=== PATIENT | female | born 1995 | race Hispanic/Latino ===

== ENCOUNTER 2019-10-06 18:04 | Emergency (ER) | payer BC, OTHER ==
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
[2019-10-06] MEDS ORDERED: CYCLOBENZAPRINE 10 MG TAB ONE (18:32)
[2019-10-06] MEDS ORDERED: KETOROLAC 30 MG/ML INJ ONE (18:32)
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
--- NOTE | 2019-10-06 18:57 | RAD REPORT ---
EXAM DESCRIPTION: RAD - Shoulder Left 2 View - 10/06/2019 6:42 pm CLINICAL HISTORY: Left shoulder pain FINDINGS: No fracture or dislocation is seen.
--- NOTE | 2019-10-06 18:58 | RAD REPORT ---
EXAM DESCRIPTION: Anil Single View10/06/2019 6:42 pm CLINICAL HISTORY: Chest pain COMPARISON: 2015 FINDINGS: The lungs appear clear of acute infiltrate. The heart is normal size IMPRESSION: No acute abnormalities displayed
[2019-10-06 20:35] LABS: Urine Blood NEGATIVE (NEG); Urine Glucose NEGATIVE (NEG); Urine Protein NEGATIVE (NEG)
[2019-10-06 21:42] VITALS: BP 123/90; O2SAT 99
== END 2019-10-06 19:36 | disposition home or self-care (01) ==
LOC: ER 18:04
DX: S13.4XXA Sprain of ligaments of cervical spine, initial encounter (principal); S20.219A Contusion of unspecified front wall of thorax, initial encounter; V49.40XA Driver injured in collision with unspecified motor vehicles in traffic accident, initial encounter; F41.9 Anxiety disorder, unspecified
CPT/HCPCS: 71045; 72125; 81003; 81025; 96372; 99284

== ENCOUNTER 2019-12-19 18:22 | Emergency (ER) | payer BC ==
[2019-12-19 19:08] LABS: Absolute Lymphocytes (CBC) 1.2 K/uL (0.7-4.9); Basophils % 0.6 % (0-1.3); Hematocrit 39.8 % (36.0-45.0); Lymphocytes % 14.7 % (15.3-44.8); MPV 10.3 fL (7.6-11.3); RBC Red Blood Cell Count 4.37 M/uL (3.86-4.86)
[2019-12-19 19:11] LABS: Protime INR 1.13
[2019-12-19 19:23] LABS: ALT/SGPT 20 U/L (12-78); AST/SGOT 11 U/L (15-37); Albumin 3.7 g/dL (3.4-5.0); Alkaline Phosphatase 65 U/L (45-117); BUN Blood Urea Nitrogen 7 mg/dL (7-18); Bicarbonate 23 mmol/L (21-32); Bilirubin Direct 0.1 mg/dL (0-0.2); Bilirubin Total 0.6 mg/dL (0.2-1.0); Glucose Level 123 mg/dL (74-106); Potassium 3.2 mmol/L (3.5-5.1); Protein, Total 7.8 g/dL (6.4-8.2); Sodium Level 140 mmol/L (136-145)
[2019-12-19] MEDS ORDERED: POTASSIUM CL SA 10 MEQ TAB PO ONE (19:51)
[2019-12-19 21:01] LABS: Barbiturates NEGATIVE (NEGATIVE); Benzodiazepines NEGATIVE (NEGATIVE); Cocaine NEGATIVE (NEGATIVE); METHAMPHETAM NEGATIVE (NEGATIVE); Methadone NEGATIVE (NEGATIVE); Opiates NEGATIVE (NEGATIVE); Phencyclidine NEGATIVE (NEGATIVE); THC Cannibis NEGATIVE (NEGATIVE)
[2019-12-19] MEDS ORDERED: NA CHLORIDE 0.9% 1,000 ML ONE (21:02)
[2019-12-19] MEDS ORDERED: ONDANSETRON 4 MG/2 ML VIAL ONE (21:02)
[2019-12-19 21:12] LABS: Urine Blood TRACE (NEG); Urine Glucose NEGATIVE (NEG); Urine Protein NEGATIVE (NEG)
--- NOTE | 2019-12-19 23:37 | EDPHYS ---
Physician Documentation [facility] Name: Ester Bonilla Age: 24 yrs Sex: Female : 1995 Arrival Date: 12/19/2019 Time: 18:28 Bed 13 Private MD: ED Physician Sandeep Lara HPI: 12/18 22:21 This 24 yrs old Female presents to ER via EMS with complaints of Overdose, kb Suicidal Ideation. 22:21 The patient presents to the emergency department after a known overdose, that was kb intentional. Context: Method: the patient has a confirmed or suspected ingestion, Time: at 17:00, Extent: approx 10 500mg robaxin, the OD/poisoning occurred at at home, Psychiatric history: the patient has a known psychiatric disorder, depression, Previous OD/poisoning history: yes. Associated signs and symptoms: Pertinent positives: depression, Pertinent negatives: anxiety, apnea, auditory hallucinations, burning of skin, decreased level of consciousness, diaphoresis, diarrhea, dizziness, incontinence, loss of consciousness, nausea, palpitations, shortness of breath, tearfulness, visual hallucinations, vomiting. Severity of symptoms: At their worst the symptoms were moderate in the emergency department the symptoms are unchanged. The patient has not experienced similar symptoms in the past. The patient has not recently seen a physician. Pt states she overdosed to kill herself. States sometimes she gets really depressed and tries to hurt herself. States she is still suicidal now. States "I don't know why they made me come here, I feel fine." Denies homicidal ideations. 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 - Social history:: Smoking status: Reported history of juuling and/or vaping. ROS: 22:19 Constitutional: Negative for fever, chills, and weight loss, Neck: Negative for injury, kb pain, and swelling, Cardiovascular: Negative for chest pain, palpitations, and edema, Respiratory: Negative for shortness of breath, cough, wheezing, and pleuritic chest pain, Abdomen/GI: Negative for abdominal pain, nausea, vomiting, diarrhea, and constipation, Back: Negative for injury and pain, : Negative for injury, bleeding, discharge, and swelling, MS/Extremity: Negative for injury and deformity, Skin: Negative for injury, rash, and discoloration, Neuro: Negative for headache, weakness, numbness, tingling, and seizure. 22:19 Psych: Positive for depression, suicide gesture, suicidal ideation, Negative for homicidal ideation. Exam: 22:19 Constitutional: This is a well developed, well nourished patient who is awake, alert, kb and in no acute distress. Head/Face: Normocephalic, atraumatic. Neck: Trachea midline, no thyromegaly or masses palpated, and no cervical lymphadenopathy. Supple, full range of motion without nuchal rigidity, or vertebral point tenderness. No Meningismus. Chest/axilla: Normal chest wall appearance and motion. Nontender with no deformity. No lesions are appreciated. Cardiovascular: Regular rate and rhythm with a normal S1 and S2. No gallops, murmurs, or rubs. Normal PMI, no JVD. No pulse deficits. Respiratory: Lungs have equal breath sounds bilaterally, clear to auscultation and percussion. No rales, rhonchi or wheezes noted. No increased work of breathing, no retractions or nasal flaring. Abdomen/GI: Soft, non-tender, with normal bowel sounds. No distension or tympany. No guarding or rebound. No evidence of tenderness throughout. Skin: Warm, dry with normal turgor. Normal color with no rashes, no lesions, and no evidence of cellulitis. MS/ Extremity: Pulses equal, no cyanosis. Neurovascular intact. Full, normal range of motion. Neuro: Awake and alert, GCS 15, oriented to person, place, time, and situation. Cranial nerves II-XII grossly intact. Motor strength 5/5 in all extremities. Sensory grossly intact. Cerebellar exam normal. Normal gait. 22:19 Psych: Behavior/mood is cooperative, suicidal, Affect is flat, Oriented to person, place, time, Patient having thoughts of suicide. Plan for suicide is overdose Judgement / Insight is normal. Memory is normal. 22:24 ECG was reviewed by the Attending Physician. kb Vital Signs: 18:28 BP 120 / 96; Pulse 98; Resp 16; Pulse Ox 99% on R/A; Weight 61.23 kg (R); Height 5 ft. rb1 5 in. (165.10 cm) (R); Pain 0/10; 19:01 Temp 99.3(TE); mg2 18:28 Body Mass Index 22.46 (61.23 kg, 165.10 cm) rb1 MDM: 18:33 Patient medically screened. kb 22:19 Data reviewed: vital signs, nurses notes. Data interpreted: Pulse oximetry: on room air kb is 99 %. Interpretation: normal. 22:46 ED course: [facility] Screener recommends inpatient treatment . kb 22:48 ED course: Pt will voluntarily be transferred for inpatient treatment. kb 23:35 Counseling: I had a detailed discussion with the patient and/or guardian regarding: the kb historical points, exam findings, and any diagnostic results supporting the discharge/admit diagnosis, lab results, the need to transfer to another facility, for higher level of care, [facility] does not immediately have the required specialist. ED course: Pt accepted to [facility] by Dr Fleming. 12/18 18:37 Order name: Acetaminophen; Complete Time: 19:25 kb 12/18 18:37 Order name: Basic Metabolic Panel; Complete Time: 19:25 kb 12/18 18:37 Order name: CBC with Diff; Complete Time: 19:10 kb 12/18 18:37 Order name: ETOH Level; Complete Time: 19:24 kb 12/18 18:37 Order name: Hepatic Function; Complete Time: 19:25 kb 12/18 18:37 Order name: PT-INR; Complete Time: 19:16 kb 12/18 18:37 Order name: Ptt, Activated; Complete Time: 19:16 kb 12/18 18:37 Order name: Salicylate; Complete Time: 19:25 kb 12/18 18:37 Order name: Urine Drug Screen; Complete Time: 21:06 kb 12/18 20:48 Order name: Urine Dipstick--Ancillary (enter results); Complete Time: 21:12 ar5 12/18 20:49 Order name: Urine --Ancillary (enter results); Complete Time: 21:13 ar5 12/18 18:37 Order name: Urine Test (obtain specimen); Complete Time: 20:38 kb 12/18 18:37 Order name: EKG; Complete Time: 18:38 kb 12/18 18:37 Order name: EKG - Nurse/Tech; Complete Time: 20:03 kb 12/18 18:37 Order name: IV Saline Lock; Complete Time: 19:26 kb 12/18 18:37 Order name: Labs collected and sent; Complete Time: 19:26 kb 12/18 18:37 Order name: Urine Dipstick-Ancillary (obtain specimen); Complete Time: 20:38 kb 12/18 18:39 Order name: Misc. Order: Call Poison Control for their recommendation; Complete Time: kb 19:26 EC:24 Rate is 97 beats/min. Rhythm is regular. QRS [place] is Normal. NE interval is normal at kb 140 msec. QRS interval is normal at 92 msec. QT interval is normal at 352 msec. Administered Medications: 21:15 Drug: Zofran (Ondansetron) 4 mg Route: IVP; Site: right antecubital; mg2 21:16 Drug: NS 0.9% 1000 ml Route: IV; Rate: 1000 ml; Site: right antecubital; mg2 21:51 Not Given (Patient Refused): Potassium Chloride 40 mEq PO once mg2 Disposition: 12/19 07:11 Co-signature as Attending Physician, Sandeep Lara MD. rn Disposition: 12/19/19 23:36 Transfer ordered to Psych Facility. Diagnosis are Suicidal ideations, Suicide attempt. - Reason for transfer: Higher level of care. - Accepting physician is Dr Fleming. - Condition is Stable. - Problem is new. - Symptoms are unchanged. Signatures: Dispatcher [employer] [facility] Felicia Saba, JUNIOR ELECTRICAL ENGINEER-C JUNIOR ELECTRICAL ENGINEER-Ckb Sandeep Lara MD MD rn Barber, Rebecca, RN RN rb1 Brown Mcdaniel RN RN mg2 Neeru Gifford RN RN ls4 Corrections: (The following items were deleted from the chart) 12/18 22:21 22:19 Psych: Positive for depression, suicide gesture, suicidal ideation, kb kb 12/19 00:43 12/18 23:36 12/19/2019 23:36 Transfer ordered to Psych Facility. Diagnosis is Suicidal ls4 ideations; Suicide attempt. Reason for transfer: Higher level of care. Accepting physician is Dr Fleming. Condition is Stable. Problem is new. Symptoms are unchanged. kb
--- NOTE | 2019-12-19 23:37 | ER ---
Nurse's Notes [facility] Name: Ester Bonilla Age: 24 yrs Sex: Female : 1995 Arrival Date: 12/19/2019 Time: 18:28 Bed 13 Private MD: Diagnosis: Suicidal ideations;Suicide attempt Presentation: 12/18 18:28 Chief complaint: EMS states: Pt. took 10 or more Methocarbamol 500 mg around 1700. This rb1 is her second attempt. C/o dizziness. 20 G R Hand, EMS administered 500 ml bolus. History of previous attempt. BP 136/86, P 110, O2 99%, No medical history, NKDA. Coronavirus screen: Patient denies a cough. Patient denies shortness of breath or difficulty breathing. Patient denies measured and/or subjective temperature greater than 100.4F prior to today's visit. Patient reports travel on a cruise ship or to a country the [facility] currently lists as an affected area. Patient denies contact with known and/or suspected case of COVID-19. Ebola Screen: Patient negative for fever greater than or equal to 101.5 degrees Fahrenheit, and additional compatible Ebola Virus Disease symptoms. Initial Sepsis Screen: Does the patient meet any 2 criteria? No. Patient's initial sepsis screen is negative. Does the patient have a suspected source of infection? No. Patient's initial sepsis screen is negative. Risk Assessment: Do you want to hurt yourself or someone else? Patient reports desire/thoughts of hurting themselves or someone else. Provider notified. Other: Denies being homicidal, admits that she is suicidal. Onset of symptoms was December 19, 2019 at 17:00. 18:28 Method Of Arrival: EMS: [facility] rb1 18:28 Acuity: NISHI 2 mg2 Triage Assessment: 18:28 General: Appears in no apparent distress. comfortable, Behavior is calm, cooperative, rb1 drowsy, Denies fever, feeling ill. Pain: Denies pain. Neuro: Level of Consciousness is awake, alert, obeys commands, Oriented to person, place, time, situation. Neuro: Denies dizziness. Cardiovascular: Capillary refill < 3 seconds is brisk in bilateral fingers. Respiratory: Airway is patent Respiratory effort is even, unlabored, Respiratory pattern is regular, symmetrical. GI: No signs and/or symptoms were reported involving the gastrointestinal system. : No signs and/or symptoms were reported regarding the genitourinary system. Derm: Skin is pink, warm \\T\\ dry. Musculoskeletal: Range of motion: intact in all extremities. 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 - Social history:: Smoking status: Reported history of juuling and/or vaping. Screenin:28 Abuse screen: Self inflicted. Nutritional screening: No deficits noted. Tuberculosis rb1 screening: No symptoms or risk factors identified. Fall Risk None identified. Assessment: 18:28 General: See triage assessment. rb1 19:23 Reassessment: poison control called. observe for tachycardia, low BP n/v and initiate mg2 seizure precaution, [email or web address], . 19:25 Reassessment: spoke with Margo at Poison Control, advises to to run tox workup and iw give supportive care, observation time is 4-6 hours from time of ingestion, after that time pt can be medically clear, case #[id number]. 20:04 Pain: Complains of pain in head. Neuro: Level of Consciousness is Oriented to person, mg2 place, time, situation. Cardiovascular: Capillary refill < 3 seconds Patient's skin is warm and dry. Respiratory: Airway is patent Respiratory effort is even, unlabored, Respiratory pattern is regular, symmetrical. GI: No signs and/or symptoms were reported involving the gastrointestinal system. : No signs and/or symptoms were reported regarding the genitourinary system. EENT: No signs and/or symptoms were reported regarding the EENT system. Derm: Skin is intact, is healthy with good turgor, Skin is pink, warm \\T\\ dry. normal. Musculoskeletal: Circulation, motion, and sensation intact. Capillary refill < 3 seconds. 21:32 Reassessment: Patient appears in no apparent distress at this time. Patient and/or mg2 family updated on plan of care and expected duration. Pain level reassessed. Patient is alert, oriented x 3, equal unlabored respirations, skin warm/dry/pink. mother called and asked about the patient's condition. Felisa (mother) - [phone]. 23:05 Reassessment: other patient's belonging forwarded to security on duty. [place] [id number] already spoke to the patient and advised to be inpatient. patient agreed to the plan. patient refused to give her phone, jacket, bracelet and watch. charge nurse made aware. 23:15 Reassessment: RECEIVED PT FROM MARIEL Bray. WENT TO PT ROOM TO INTRODUCE. PT ASKED FOR ls4 PAIN MEDICATION WHILE LOOKING AT PHONE WHICH WAS ON HIGH VOLUME AND PT WAS SPEAKING WITH FRIEND [employer]IA [employer]. I ASKED PT TO TURN OFF PHONE WHILE WE DISCUSS HER PAIN MEDS AND NEEDS. PT BECAME ANGRY AND BEGAN YELLING AT THIS NURSE AND DEMANDING A NE W NURSE STATING "I GOT RID OF THE LAST ONE AND ILL GET RID OF YOU. 23:22 Reassessment: nurse to nurse report given to Ciara of [facility]. [facility] 23:23 Reassessment: Nurse to nurse given to Ricky at [facility]. [facility] Psych: 18:28 Subjective: Patient's mood is sad, Having thoughts of suicide. Objective: Patient is rb1 cooperative, Speech is normal, Affect is flat, Patient has mutilated themselves by Overdose. Interventions: Removed personal items and placed in bag. Patient placed in hospital gown. Searched person for dangerous items. Suicide Risk Assessment: Sad Person Scale: Sex of patient: Female: Score 0 points. Age of patient: Score 1 point if patient 15-34. Depression: Score 1 point if signs of depression are present. Previous Attempt: Score 1 point if patient has previously attempted suicide. Substance Abuse: Score 1 point if patient abuses alcohol or drugs. Rational Thinking: Score 1 point if patient is lacking rational thinking. Social Support: Score 1 point if social support is lacking and/or unavailable. Organized Plan: Score 1 point if patient had a plan in place. Chronic Sickness: Score 1 point if patient has illness, chronic, debilitating, or severe. TOTAL POINTS: If total points are 7-10, the proposed clinical action is to hospitalize or commit. Implement suicide precautions. Safety Checks: Personal items have been removed. Door is open. No visitors are present at this time. Methocarbamol. 18:28 Commitment: Patient will be a voluntary commitment. rb1 Overdose: 19:22 Patient took methocarbamol 500 mg , at least 10 tabs. Overdose occurred 1-2 hours ago. iw Vital Signs: 18:28 BP 120 / 96; Pulse 98; Resp 16; Pulse Ox 99% on R/A; Weight 61.23 kg (R); Height 5 ft. rb1 5 in. (165.10 cm) (R); Pain 0/10; 19:01 Temp 99.3(TE); mg2 18:28 Body Mass Index 22.46 (61.23 kg, 165.10 cm) rb1 ED Course: 18:28 Patient arrived in ED. iw 18:28 Arm band placed on right wrist. rb1 18:28 Patient has correct armband on for positive identification. Placed in gown. Bed in low rb1 position. Call light in reach. Side rails up X 1. Warm blanket given. 18:28 Maintain EMS IV. Dressing intact. Good blood return noted. Site clean \\T\\ dry. Gauge \\T\\ rb 1 site: 20 G R Hand. 18:33 Felicia Saba [facility]NP-C [facility]. kb 18:33 Sandeep Lara MD is Attending Physician. kb 18:51 Thuy Rodrigues, RN is Primary Nurse. rb1 19:03 Triage completed. rb1 20:03 No provider procedures requiring assistance completed. mg2 Administered Medications: 21:15 Drug: Zofran (Ondansetron) 4 mg Route: IVP; Site: right antecubital; mg2 21:16 Drug: NS 0.9% 1000 ml Route: IV; Rate: 1000 ml; Site: right antecubital; mg2 21:51 Not Given (Patient Refused): Potassium Chloride 40 mEq PO once mg2 Outcome: 23:36 ER care complete, transfer ordered by . kb 12/19 00:43 Patient left the ED. ls4 Signatures: Felicia Saba FNP-C TAXI CAB DRIVER-Jacki Sumner, JULIO RN iw Felicity Hooks RN RN tl1 Thuy Rodrigues, RN RN rb1 Brown Mcdaniel RN RN mg2 Neeru Gifford RN RN ls4 Corrections: (The following items were deleted from the chart) 12/18 20:59 18:28 Acuity: NISHI 3 rb1 mg2 21:39 21:32 Reassessment: Patient appears in no apparent distress at this time. Patient mg2 and/or family updated on plan of care and expected duration. Pain level reassessed. Patient is alert, oriented x 3, equal unlabored respirations, skin warm/dry/pink. mother called and asked about the patient's condition. mg2
[2019-12-20 00:48] VITALS: BP 120/96; O2SAT 99
[2019-12-20 00:49] VITALS: TEMP 99.3
--- NOTE | 2019-12-20 07:12 | EKG ---
Test Date: 2019-12-19 Test Time: 19:39:00 Computer Lab Aide: LEVY MEASUREMENT RESULTS: Intervals: Rate: 97 MN: 140 QRSD: 92 QT: 352 QTc: 447 [place]: P: 31 MN: 140 QRS: 17 T: 51 INTERPRETIVE STATEMENTS: Normal sinus rhythm Normal ECG No previous ECG available for comparison Electronically Signed On 12-20-19 07:10:47 CDT by Valdez Sykes
== END 2019-12-20 00:43 ==
LOC: ER 18:22
DX: T42.8X2A Poisoning by antiparkinsonism drugs and other central muscle-tone depressants, intentional self-harm, initial encounter (principal); F41.9 Anxiety disorder, unspecified; Y92.009 Unspecified place in unspecified non-institutional (private) residence as the place of occurrence of the external cause; F17.290 Nicotine dependence, other tobacco product, uncomplicated
CPT/HCPCS: 93005; 85025; 80048; 36415; 80320; 80329 ×2; 81025; 85610; 80076; 80307 ×8; 85730; 81003; 96374; 99284; J7030; J2405

== ENCOUNTER 2020-01-12 02:29 | Emergency (ER) | payer BC ==
[2020-01-12 03:57] LABS: Urine Amorphous Sediment 1+ /HPF (NONE SEEN); Urine Bacteria <20 /HPF (<20); Urine Culture Reflex Order NOT NEEDED; Urine RBC <5 /HPF (NONE SEEN); Urine Urothelial Cells <5 /HPF (NONE SEEN)
[2020-01-12 03:58] LABS: Urine Blood TRACE (NEG); Urine Glucose NEGATIVE (NEG); Urine Protein 2+ (NEG); Urine pH 7.5 (5.0-7.0)
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
[2020-01-12 04:47] VITALS: TEMP 98.2; O2SAT 97
[2020-01-12 05:03] VITALS: BP 116/85
== END 2020-01-12 04:22 | disposition home or self-care (01) ==
LOC: ER 02:29
DX: N39.0 Urinary tract infection, site not specified (principal); F17.210 Nicotine dependence, cigarettes, uncomplicated; F41.9 Anxiety disorder, unspecified
CPT/HCPCS: 81003; 81015; 81025; 87086; 87088; 99283

== ENCOUNTER 2020-02-28 22:31 | Emergency (ER) | payer BC ==
--- OUTSIDE RECORDS SUMMARY | 2020-02-28 22:33 | XMS REPORT | Continuity of Care Document ---
:1995 Author Organization [facility] t Address [address] [place] [address] Care Team Providers Name Role Phone Andrzej VALENTE Attending Clinician Problems This patient has no known problems. Allergies, Adverse Reactions, Alerts This patient has no known allergies or adverse reactions. Medications This patient has no known medications. Procedures This patient has no known procedures. Encounters Start End Encounter Admission Attending Care Care Encounter Source Date/Time Date/Time Type Type Clinicians Facility Department ID 2020-01-25 2020-01-[address] [facility] [id number] 17:26:04 18:56:00 Ofelia Reyes [id number] [place] [id number] [place] [phone] Results This patient has no known results.
--- OUTSIDE RECORDS SUMMARY | 2020-02-28 22:33 | XMS REPORT | Summary of Care ---
:1995 Author Organization [facility] - Health Address [address] [place] [id number] Care Team Providers Name Role Phone DebbieTen Primary Care Provider Reason for Visit Reason Comments Cough Auth/Cert Status Reason Specialty Diagnoses / Referred By Referred To Procedures Contact Contact Emergency Medicine [facility] Em ergency Dept [address] [place] [phone] Fax: Encounter Details Date Type Department Care Team Description 01/25/2020 Emergency [facility]-Emergency Ofelia Donnelly FNP Cough (Primary Dx) Department [address] [place] [address] [address] [place]ín [place] [address] [phone] Allergies No Known Allergiesdocumented as of this encounter (statuses as of 01/25/2020) Medications Medication Sig Dispensed Refills Start Date End Date Status metoclopramide HCl 10 mg Take 1 tablet by 20 tablet 0 06/25/20 18 Active tablet mouth every 6 (six) hours. ibuprofen 600 mg tablet Take 1 tablet by 15 tablet 0 9 Active mouth every 6 (six) hours as needed for Pain (scale 1-3). documented as of this encounter (statuses as of 01/25/2020) Active Problems No known active problemsdocumented as of this encounter (statuses as of 01/25/2020) Social History Tobacco Use Types Packs/Day Years Used Date Never Assessed Sex Assigned at Date Recorded Not on file Job Start Date Occupation Industry Not on file Not on file Not on file Travel History Travel Start Travel End No recent travel history available. COVID-19 Exposure Response Date Recorded In the last month, have you been in contact with Yes 01/25/2020 5:00 PM CDT someone who was confirmed or suspected to have Coronavirus / COVID-19? documented as of this encounter Last Filed Vital Signs Vital Sign Reading Time Taken Comments Blood Pressure 120/74 01/25/2020 6:47 PM CDT Pulse 82 01/25/2020 6:47 PM CDT Temperature 37.3 C (99.1 F) 01/25/2020 5:18 PM CDT Respiratory Rate 18 01/25/2020 6:47 PM CDT Oxygen Saturation 98% 01/25/2020 6:47 PM CDT Inhaled Oxygen Concentration - - Weight 59 kg (130 lb) 01/25/2020 5:18 PM CDT Height 165.1 cm (5' 5") 01/25/2020 5:18 PM CDT Body Mass Index 21.63 01/25/2020 5:18 PM CDT documented in this encounter Discharge Instructions Ofelia Oliver FNP - 01/25/2020DIAGNOSIS 1. Cough NO LIFE-THREATENING FINDINGS ON TODAY'S EXAM. PROCEDURES IN THE ER TODAY: COVID MEDICATIONS ADMINISTERED IN THE ER TODAY: none YOUR PRESCRIPTIONS AND [id number] MEDICATION RECOMMENDATIONS: none SPECIAL CARE INSTRUCTIONS: Self isolation FOLLOW-UP RECOMMENDATIONS: RECOMMEND FOLLOW-UP WITH A PRIMARY CARE PROVIDER OR SPECIALIST IN 2-5 DAYS, ESPECIALLY IF NO IMPROVEMENT IN SYMPTOMS. TO FOLLOW-UP WITHIN THE [facility], TRY THESE OPTIONS (CLINIC APPOINTMENTS AVAILABLE ON [id number] BASIS): 1. SCHEDULE AN APPOINTMENT ONLINE AT [email or web address] 2. OR CALL THE [facility] ACCESS CENTER AT OR 3. OR CALL YOUR [facility] PHYSICIAN'S OFFICE DIRECTLY IF YOU ARE ALREADY AN ESTABLISHED [facility] PATIENT. OR, YOU MAY FOLLOW-UP WITH A PROVIDER OF YOUR CHOICE, SUCH : 1. A PHYSICIAN OF YOUR CHOICE 2. [facility], . LOCATIONS IN [facility] 3. [facility], [address], [place]; [phone] RETURN TO ER FOR WORSENING OF SYMPTOMS. AttachmentsThe following attachments cannot be sent through Care Everywhere. Infection, Preventing the Spread of: Understanding Isolation Procedures (Georgian)documented in this encounter Plan of Treatment Health Maintenance Due Date Last Done Comments VARICELLA VACCINES (1 of 2 - 2-dose 1998 childhood series) MENINGOCOCCAL B VACCINES (1 of 2 - 11/19/2007 Risk Bexsero 2-dose series) DTaP,Tdap,and Td Vaccines (1 - 2008 Tdap) HPV VACCINES (1 - Female 2-dose 2008 series) Depression Screening 2009 CHLAMYDIA SCREENING 2013 PAP SMEAR 2018 INFLUENZA VACCINE (Season Ended) 2020 MENINGOCOCCAL VACCINE Aged Out No longer eligible based on patient's age to complete this topic PNEUMOCOCCAL 0-64 YEARS COMBINED Aged Out No longer eligible based on SERIES patient's age to complete this topic documented as of this encounter Procedures Procedure Name Priority Date/Time Associated Diagnosis Comme nts COVID-19 (ID NOW STAT 01/25/2020 5:22 PM Cough Resu lts for this RAPID TESTING) CDT procedure are in the results section. NOTICE OF PRIVACY Routine 01/25/2020 5:00 PM PRACTICES CDT CONSENT/REFUSAL FOR Routine 01/25/2020 5:00 PM DIAGNOSIS AND CDT TREATMENT documented in this encounter Results COVID-19 (ID NOW RAPID TESTING) (01/25/2020 5:22 PM CDT) SARS-CoV-2 Rapid ID Not Detected Not Detected [facility] Specimen Swab - NASOPHARYNGEAL SWAB Narrative Performed At [facility] COVID-19 Assay is an isothermal nucleic [facility] acid amplification test intended for the qualitative detection of nucleic acid from SARS-CoV-2 viral RNA in nasopharyngeal (TIME STUDY CLERK) specimens. It is used under Emergency Use Authorization (EUA) by FDA. The limit of detection (LOD) of the assay is 125 Genome Equivalents/mL. A positive result is indicative of the presence of SARS-CoV-2 RNA. Clinical correlation with patient history and other diagnostic information is necessary to determine patient infection status. A negative (Not Detected) result does not preclude SARS-CoV-2 infection. In patients with clinical symptoms and other tests that are consistent with SARS-CoV-2 infection, negative results should be treated as presumptive negative and a new specimen should be tested with alternative PCR molecular test. Invalid: Please collect a new specimen for repeat patient testing if clinically indicated. Performing Organization Address City/State/Zipcode Phone Number [facility] CLIA: [id number], [address] [place], [place] [address] documented in this encounter Visit Diagnoses Diagnosis Cough - Primary documented in this encounter Insurance Payer Benefit Plan Subscriber ID Effective Dates Phone Address Type / Group [employer] [id number] 2017-Jose Ramon [phone] [address] PPO/POS [place] [employer] [id number] [place] [address] documented as of this encounter
[2020-02-29] MEDS ORDERED: TETANUS & DIPHTHERIA TOX,ADULT 0.5 ML VIAL ONE (00:08)
--- NOTE | 2020-02-29 00:40 | ER ---
Nurse's Notes [facility] Name: Ester Bonilla Age: 24 yrs Sex: Female : 1995 Arrival Date: 02/28/2020 Time: 22:33 Bed 17 Private MD: Chandu Weaver Diagnosis: Foot Laceration Presentation: 02/27 23:00 Chief complaint: Patient states: Was attempting to open a window this morning and lp1 window shattered; laceration to medial side of left foot; unable to bear weight. Coronavirus screen: Patient denies a cough. Patient denies shortness of breath or difficulty breathing. Patient denies measured and/or subjective temperature greater than 100.4F prior to today's visit. Patient denies travel on a cruise ship or to a country the [facility] currently lists as an affected area. Patient denies contact with known and/or suspected case of COVID-19. Proceed with normal triage. Patient states Negative result recently. Ebola Screen: No symptoms or risks identified at this time. Complicating Factors: unknown if glass if present. Risk Assessment: Do you want to hurt yourself or someone else? Patient reports no desire to harm self or others. Onset of symptoms was February 28, 2020 at 06:00. 23:00 Method Of Arrival: Wheelchair lp1 23:00 Acuity: NISHI 4 lp1 23:10 Initial Sepsis Screen: Does the patient meet any 2 criteria? No. Patient's initial lp1 sepsis screen is negative. Does the patient have a suspected source of infection? No. Patient's initial sepsis screen is negative. Triage Assessment: 23:36 General: Appears uncomfortable, Behavior is cooperative, anxious. Pain: Complains of ks7 pain in left foot Pain currently is 7 out of 10 on a pain scale. Quality of pain is described as sharp, Is intermittent. Injury Description: Laceration sustained to left foot is jagged, superficial, 2.6 to 7.5 cm long, was sustained 12-24 hours ago. is bleeding no active bleeding noted. 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 - Social history:: Smoking status: Patient denies any tobacco usage or history of. Screenin:03 Abuse screen: Denies threats or abuse. Denies injuries from another. Nutritional lp1 screening: No deficits noted. Tuberculosis screening: No symptoms or risk factors identified. Fall Risk None identified. Assessment: 23:09 General: Appears in no apparent distress. Behavior is appropriate for age. Pain: lp1 Complains of pain in instep of left foot Pain currently is 10 out of 10 on a pain scale. Neuro: No deficits noted. Cardiovascular: No deficits noted. Respiratory: No deficits noted. GI: No signs and/or symptoms were reported involving the gastrointestinal system. : No signs and/or symptoms were reported regarding the genitourinary system. EENT: No deficits noted. Derm: Skin is pink, warm \T\ dry. Wound noted Other: Laceration to medal side of left foot. Musculoskeletal: Range of motion: intact in all extremities. Injury Description: Laceration is jagged, 0.5 to 2.5 cm long, not bleeding. 23:37 Reassessment: No changes from previously documented assessment. ks7 02/28 00:05 Reassessment: pt resting comfortably, gave chips and water, waiting for xray results. ks7 01:20 Reassessment: Patient requesting medication for pain to foot; Verbal order for Tylenol lp1 650 mg PO now. 01:25 Reassessment: Provider notified of patient requesting crutches. lp1 Vital Signs: 02/27 23:00 Weight 58.97 kg; Height 5 ft. 5 in. (165.10 cm); Pain 10/10; lp1 23:09 BP 130 / 98; Pulse 90; Resp 16; Temp 98.6(TE); Pulse Ox 99% on R/A; lp1 23:00 Body Mass Index 21.63 (58.97 kg, 165.10 cm) lp1 ED Course: 22:33 Patient arrived in ED. es 22:33 Chandu Weaver MD is Private Physician. es 23:02 Triage completed. lp1 23:03 Arm band placed on. lp1 23:05 [facility] Sandhu [facility] 23:05 Shola Davey MD is Attending Physician. [facility] 23:28 Flor Stephens, RN is Primary Nurse. ks7 23:37 Resting quietly. ks7 23:37 Patient has correct armband on for positive identification. Bed in low position. Call ks7 light in reach. Side rails up X 1. 23:37 No provider procedures requiring assistance completed. Patient did not have IV access ks7 during this emergency room visit. 23:38 Nurse Practitioner and/or Physician Medical Recruiter to see patient. at bedside assessing pt. ks7 23:56 Foot Left 3 View XRAY Sent. ks7 07 00:27 Foot Left 3 View XRAY In Process Unspecified. EDMS 00:39 Chandu Weaver MD is Referral Physician. [facility] Administered Medications: 00:04 Drug: Tetanus-Diphtheria Toxoid Adult 0.5 ml {Accountant: @Pay. Exp: ks7 09/18/2021. Lot #: [id number]. } Route: IM; Site: right deltoid; 00:56 Follow up: Response: No adverse reaction lp1 01:21 Drug: Tylenol 650 mg Route: PO; lp1 01:21 Follow up: Response: Medication administered at discharge. lp1 Outcome: 00:39 Discharge ordered by MD. [facility] 01:47 Discharged to home via wheelchair, with crutches. lp1 01:47 Condition: good 01:47 Discharge instructions given to patient, Instructed on discharge instructions, follow up and referral plans. wound care, Demonstrated understanding of instructions, follow-up care. 01:47 Patient left the ED. lp1 Signatures: Dispatcher [employer] EDMS Lionel Sandhu PA PA jmm Salyer, Edna es Pena, Laura, RN RN lp1 Flor Stephens, RN RN ks7
--- NOTE | 2020-02-29 00:40 | EDPHYS ---
Physician Documentation [facility] Name: Ester Bonilla Age: 24 yrs Sex: Female : 1995 Arrival Date: 02/28/2020 Time: 22:33 Bed 17 Private MD: Chandu Weaver ED Physician Shola Davey HPI: 02/27 23:32 This 24 yrs old Female presents to ER via Wheelchair with complaints of jmm Laceration To Foot. 23:32 Onset: The symptoms/episode began/occurred acutely, just prior to arrival. Modifying jmm factors: The symptoms are alleviated by nothing, the symptoms are aggravated by movement. This is a 24 year old female with a history of anxiety that presents to the ED with complaints of left foot pain and swelling. Patient states she cut her foot on glass 1 day ago. Patient is concerned she may have glass embedded in her foot. Denies other injury. Patient unsure on tetanus immunization. . 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 - Social history:: Smoking status: Patient denies any tobacco usage or history of. ROS: 23:32 Constitutional: Negative for fever, chills, and weight loss, Cardiovascular: Negative jmm for chest pain, palpitations, and edema, Respiratory: Negative for shortness of breath, cough, wheezing, and pleuritic chest pain. 23:32 MS/extremity: Positive for injury or acute deformity, laceration. 23:32 All other systems are negative. Exam: 23:32 Constitutional: This is a well developed, well nourished patient who is awake, alert, jmm and in no acute distress. Head/Face: atraumatic. Eyes: EOMI, no conjunctival erythema appreciated ENT: Moist Mucus Membranes Neck: Trachea midline, Supple Chest/axilla: Normal chest wall appearance and motion. Cardiovascular: Regular rate and rhythm. No edema appreciated Respiratory: Normal respirations, no respiratory distress appreciated Abdomen/GI: Non distended, soft Back: Normal ROM 23:32 Skin: 1.5 cm laceration noted to the left foot, no active bleeding, no purulent drainage. 23:32 Neuro: Orientation: is normal, Mentation: is normal, Memory: is normal. 23:32 Psych: Behavior/mood is pleasant, cooperative. Vital Signs: 23:00 Weight 58.97 kg; Height 5 ft. 5 in. (165.10 cm); Pain 10/10; lp1 23:09 BP 130 / 98; Pulse 90; Resp 16; Temp 98.6(TE); Pulse Ox 99% on R/A; lp1 23:00 Body Mass Index 21.63 (58.97 kg, 165.10 cm) lp1 MDM: 23:32 Patient medically screened. [facility] 02/28 00:38 Data reviewed: vital signs, nurses notes. Counseling: I had a detailed discussion with sravan the patient and/or guardian regarding: the historical points, exam findings, and any diagnostic results supporting the discharge/admit diagnosis, the need for outpatient follow up, to return to the emergency department if symptoms worsen or persist or if there are any questions or concerns that arise at home. ED course: Imaging studies unremarkable. Patient given wound infection return precautions. Patient understood and agrees with the plan of care. . 02/27 23:39 Order name: Foot Left 3 View XRAY [facility] 02/28 01:25 Order name: Crutches; Complete Time: 01:46 [facility] Administered Medications: 00:04 Drug: Tetanus-Diphtheria Toxoid Adult 0.5 ml {Supervisor Customer Records Division: Row [employer]. Exp: ks7 09/18/2021. Lot #: [id number]. } Route: IM; Site: right deltoid; 00:56 Follow up: Response: No adverse reaction lp1 01:21 Drug: Tylenol 650 mg Route: PO; lp1 01:21 Follow up: Response: Medication administered at discharge. lp1 Disposition: 06:07 Co-signature as Attending Physician, Shola Davey MD I agree with the assessment and tw4 plan of care. Disposition: 02/29/20 00:39 Discharged to Home. Impression: Foot Laceration. - Condition is Stable. - Discharge Instructions: Nonsutured Laceration Care. - Medication Reconciliation Form, Thank You Letter, Antibiotic Education, Prescription Opioid Use form. - Follow up: Chandu Weaver MD; When: 5 - 6 days; Reason: Recheck today's complaints, Continuance of care, Re-evaluation by your physician. Signatures: Dispatcher [employer] EDLionel Palmer PA PA jmm Pena, Laura, RN RN lp1 Shola Davey MD MD tw4 Flor Stephens RN RN ks7 Corrections: (The following items were deleted from the chart) 01:47 00:39 02/29/2020 00:39 Discharged to Home. Impression: Foot Laceration. Condition is lp1 Stable. Forms are Medication Reconciliation Form, Thank You Letter, Antibiotic Education, Prescription Opioid Use. Follow up: Chandu Weaver; When: 5 - 6 days; Reason: Recheck today's complaints, Continuance of care, Re-evaluation by your physician. sravan
[2020-02-29] MEDS ORDERED: ACETAMINOPHEN 325 MG TABLET ONE (01:24)
[2020-02-29 01:54] VITALS: BP 130/98; TEMP 98.6; O2SAT 99
--- NOTE | 2020-02-29 08:47 | RAD REPORT ---
EXAM DESCRIPTION: RAD - Foot Left 3 View - 02/29/2020 12:20 am CLINICAL HISTORY: r/o FB, foot trauma, medial foot laceration COMPARISON: FOOT AP LAT dated 11/13/2008 FINDINGS: No fracture, dislocation or periosteal reaction. No acute or destructive bony process. Soft tissue swelling or edema changes are present medial foot. No foreign body. IMPRESSION: No acute bone finding. No foreign body.
== END 2020-02-29 01:47 | disposition home or self-care (01) ==
LOC: ER 22:31
DX: S91.312A Laceration without foreign body, left foot, initial encounter (principal); W25.XXXA Contact with sharp glass, initial encounter; Y93.89 Activity, other specified; Y92.9 Unspecified place or not applicable; Z23 Encounter for immunization
CPT/HCPCS: 90471; 99283

== ENCOUNTER 2020-03-25 21:52 | Emergency (ER) | payer BC, OTHER ==
--- OUTSIDE RECORDS SUMMARY | 2020-03-25 21:54 | XMS REPORT | Continuity of Care Document ---
:1995 Author Organization [facility] t Address [address] [place] [address] Care Team Providers Name Role Phone Andrzej [...] Facility Department ID 2020-01-25 2020-01-25 Emergency Andrzej [facility] [id number] 17:26:04 18:56:00 Ofelia Reyes [id number] [place] [id number] [place] [phone] [id number] Results This patient has no known results.
[2020-03-25] MEDS ORDERED: ACETAMINOPHEN 500 MG TAB ONE (22:26)
--- NOTE | 2020-03-26 00:05 | ER ---
Nurse's Notes [facility] Name: Ester Bonilla Age: 24 yrs Sex: Female : 1995 Arrival Date: 03/25/2020 Time: 21:57 Bed 2 Private MD: Diagnosis: Exudative Pharyngitis Presentation: 03/25 22:07 Chief complaint: Patient states: "I have been having fever, nausea, vomiting, as well jd3 as this white patchy spot at the back of my throat.". Coronavirus screen: fever, muscle pain, nausea, sore throat, Client presents with at least one sign or symptom that may indicate coronavirus-19. Standard/surgical mask placed on the client. Provider contacted for isolation considerations. Ebola Screen: Patient negative for fever greater than or equal to 101.5 degrees Fahrenheit, and additional compatible Ebola Virus Disease symptoms. Initial Sepsis Screen: Does the patient meet any 2 criteria? No. Patient's initial sepsis screen is negative. Does the patient have a suspected source of infection? No. Patient's initial sepsis screen is negative. Risk Assessment: Do you want to hurt yourself or someone else? Patient reports no desire to harm self or others. Onset of symptoms was March 20, 2020. 22:07 Method Of Arrival: Ambulatory jd3 22:07 Acuity: NISHI 3 jd3 Triage Assessment: 22:07 General: Appears uncomfortable, Behavior is appropriate for age. Pain: Denies pain. ea Neuro: Level of Consciousness is awake, alert, obeys commands, Oriented to person, place, time, situation. Respiratory: Airway is patent Respiratory effort is even, unlabored, Respiratory pattern is regular, symmetrical. GI: Reports nausea, vomiting. 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 - Social history:: Smoking status: Reported history of juuling and/or vaping. Screenin:06 Abuse screen: Denies threats or abuse. Nutritional screening: No deficits noted. ea Tuberculosis screening: No symptoms or risk factors identified. Fall Risk None identified. Assessment: 22:08 General: Appears uncomfortable, Behavior is appropriate for age. Neuro: Level of ea Consciousness is awake, alert, obeys commands, Oriented to person, place, time, situation. Cardiovascular: Patient's skin is warm and dry. Respiratory: Airway is patent Respiratory effort is even, unlabored, Respiratory pattern is regular, symmetrical. GI: Reports nausea, vomiting. GI: Abdomen is non-distended. Derm: Skin is pink, warm \\T\\ dry. 23:55 Reassessment: Patient and/or family updated on plan of care and expected duration. Pain ea level reassessed. Patient is alert, oriented x 3, equal unlabored respirations, skin warm/dry/pink. 03/26 00:13 Reassessment: Patient and/or family updated on plan of care and expected duration. Pain ea level reassessed. Patient is alert, oriented x 3, equal unlabored respirations, skin warm/dry/pink. Discharge instruction given to patient, verbalized the understanding of instruction. Pt left ED ambulatory tolerating well. Vital Signs: 03/25 22:10 BP 118 / 78; Pulse 114; Resp 18 S; Temp 100.1(O); Pulse Ox 99% on R/A; Weight 58.97 kg jd3 (R); Height 5 ft. 5 in. (165.10 cm) (R); Pain 7/10; 23:55 BP 102 / 72; Pulse 94; Resp 18; Pulse Ox 98% on R/A; ea 23:58 Pulse Ox 98.6% ; ea 22:10 Body Mass Index 21.63 (58.97 kg, 165.10 cm) jd3 ED Course: 21:57 Patient arrived in ED. bp1 22:[address] MD is Attending Physician. mh7 22:06 Suki Chambers RN is Primary Nurse. ea 22:06 Arm band placed on right wrist. Patient placed in an exam room, on a stretcher, on ea pulse oximetry. 22:07 Patient has correct armband on for positive identification. Bed in low position. Call ea light in reach. 22:09 Triage completed. jd3 03/26 00:04 Sylvia Guerra MD is Referral Physician. mh7 00:14 No provider procedures requiring assistance completed. Patient did not have IV access ea during this emergency room visit. Administered Medications: 03/25 22:18 Drug: Tylenol 1000 mg Route: PO; ea 03/26 00:15 Follow up: Response: No adverse reaction ea Outcome: 00:04 Discharge ordered by . tj 00:14 Discharged to home ambulatory. ea 00:14 Condition: stable 00:14 Discharge instructions given to patient, Instructed on discharge instructions, follow up and referral plans. Demonstrated understanding of instructions, follow-up care. 00:15 Patient left the ED. ea Addendum: 03/30/2020 07:19 Addendum: Other Pt contacted about inability to perform COVID-19 test, swab was a a5 reported leaked or damaged during transit. Pt notified and given the option to retest today. Pt states her symptoms have improved except for the sore throat. Pt states "I don't know what I want to do right now, I will call you back later to let you know" (referring to repeat swab), pt given ER phone number to return call. Signatures: Rosa Isela Walters RN RN aa5 Suki Chambers RN RN ea Davies, Jonathon, RN RN jd3 Paniauga, Brittany bp1 Holmes, Maurice, MD MD mh7 Corrections: (The following items were deleted from the chart) 03/25 22:10 22:07 Onset of symptoms was March 25, 2020 tanya martínez
--- NOTE | 2020-03-26 00:05 | EDPHYS ---
Physician Documentation [facility] Name: Ester Bonilla Age: 24 yrs Sex: Female : 1995 Arrival Date: 03/25/2020 Time: 21:57 Bed 2 Private MD: ED Physician Phillip Lane HPI: 03/25 23:03 This 24 yrs old Female presents to ER via Ambulatory with complaints of Fever, mh7 Nausea/Vomiting. 23:03 The patient reports fever, that was measured at 102 degrees Fahrenheit. mh7 23:03 Onset: The symptoms/episode began/occurred 3 day(s) ago. Modifying factors: there are mh7 no obvious modifying factors. Associated signs and symptoms: Pertinent positives: nausea, sore throat, vomiting, Pertinent negatives: abdominal pain, altered mental status, arthralgias, backache, chest pain, cough, diarrhea, pulling at ears, earache, headache, hemoptysis, night sweats, runny nose, sinus congestion, sinus drainage, skin rash, shortness of breath, swelling. Severity of symptoms: At their worst the symptoms were moderate yesterday, in the emergency department the symptoms have improved moderately. 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 - Social history:: Smoking status: Reported history of juuling and/or vaping. ROS: 23:03 Eyes: Negative for injury, pain, redness, and discharge, Neck: Negative for injury, mh7 pain, and swelling, Cardiovascular: Negative for chest pain, palpitations, and edema, Respiratory: Negative for shortness of breath, cough, wheezing, and pleuritic chest pain, Back: Negative for injury and pain, : Negative for injury, bleeding, discharge, and swelling, MS/Extremity: Negative for injury and deformity, Skin: Negative for injury, rash, and discoloration, Neuro: Negative for headache, weakness, numbness, tingling, and seizure, Psych: Negative for depression, anxiety, suicide ideation, homicidal ideation, and hallucinations, Allergy/Immunology: Negative for hives, rash, and allergies, Endocrine: Negative for neck swelling, polydipsia, polyuria, polyphagia, and marked weight changes, Hematologic/Lymphatic: Negative for swollen nodes, abnormal bleeding, and unusual bruising. Exam: 23:03 Constitutional: This is a well developed, well nourished patient who is awake, alert, mh7 and in no acute distress. Head/Face: Normocephalic, atraumatic. Eyes: Pupils equal round and reactive to light, extra-ocular motions intact. Lids and lashes normal. Conjunctiva and sclera are non-icteric and not injected. Cornea within normal limits. Periorbital areas with no swelling, redness, or edema. 23:03 Chest/axilla: Normal chest wall appearance and motion. Nontender with no deformity. No lesions are appreciated. Cardiovascular: Regular rate and rhythm with a normal S1 and S2. No gallops, murmurs, or rubs. Normal PMI, no JVD. No pulse deficits. Respiratory: Lungs have equal breath sounds bilaterally, clear to auscultation and percussion. No rales, rhonchi or wheezes noted. No increased work of breathing, no retractions or nasal flaring. Abdomen/GI: Soft, non-tender, with normal bowel sounds. No distension or tympany. No guarding or rebound. No evidence of tenderness throughout. Back: No spinal tenderness. No costovertebral tenderness. Full range of motion. Skin: Warm, dry with normal turgor. Normal color with no rashes, no lesions, and no evidence of cellulitis. MS/ Extremity: Pulses equal, no cyanosis. Neurovascular intact. Full, normal range of motion. Neuro: Awake and alert, GCS 15, oriented to person, place, time, and situation. Cranial nerves II-XII grossly intact. Motor strength 5/5 in all extremities. Sensory grossly intact. Cerebellar exam normal. Normal gait. Psych: Awake, alert, with orientation to person, place and time. Behavior, mood, and affect are within normal limits. 23:03 ENT: External ear(s): are unremarkable, Ear canal(s): are normal, clear, TM's: are normal, no evidence of bulging, no dullness, no erythema, no fluid levels, no hemotympanum, no rupture, Examination of the other ear shows no obvious abnormality, Nose: is normal, Examination of the other nostril shows no obvious abnormality, Mouth: is normal, Posterior pharynx: Airway: normal, Tonsils: bilaterally enlarged, with erythema, with exudate, Uvula: normal, midline, swelling, is not appreciated, erythema, that is moderate, exudate, that is moderate, peritonsillar mass, is not appreciated, pooling of secretions, is not appreciated, Dental exam: normal, Voice: is normal, Breath odor: is normal. 23:03 Neck: External neck: is normal, C-spine: appears grossly normal, Thyroid: appears normal, Trachea: is midline with no obvious abnormalities, ROM/movement: is normal, Lymph nodes: lymphadenopathy is appreciated, anterior cervical nodes. Vital Signs: 22:10 BP 118 / 78; Pulse 114; Resp 18 S; Temp 100.1(O); Pulse Ox 99% on R/A; Weight 58.97 kg jd3 (R); Height 5 ft. 5 in. (165.10 cm) (R); Pain 7/10; 23:55 BP 102 / 72; Pulse 94; Resp 18; Pulse Ox 98% on R/A; ea 23:58 Pulse Ox 98.6% ; ea 22:10 Body Mass Index 21.63 (58.97 kg, 165.10 cm) jd3 MDM: 22:21 Patient medically screened. [facility] 03/26 00:01 Differential diagnosis: viral Infection, bacterial infection, URI, Strep pharyngitis, 7 Exudative pharyngitis. Data reviewed: vital signs, nurses notes, lab test result(s), Flu: negative Rapid Strep. Data interpreted: Pulse oximetry: on room air is 99 %. Interpretation: normal. Counseling: I had a detailed discussion with the patient and/or guardian regarding: the historical points, exam findings, and any diagnostic results supporting the discharge/admit diagnosis, lab results, the need for outpatient follow up, to return to the emergency department if symptoms worsen or persist or if there are any questions or concerns that arise at home. Response to treatment: the patient's symptoms have markedly improved after treatment. Refusal of service: The patient/guardian displays adequate decision making capability and despite a detailed discussion of alternatives, benefits, risks, and consequences refuses: Medications. 03/25 22:20 Order name: Strep; Complete Time: 23:02 ea 03/25 22:20 Order name: Flu; Complete Time: 23:02 ea 03/25 22:47 Order name: Throat Culture EDCT 03/25 23:53 Order name: COVID-19 tt3 03/25 23:53 Order name: CORONAVIRUS EDCT Administered Medications: 03/25 22:18 Drug: Tylenol 1000 mg Route: PO; ea 03/26 00:15 Follow up: Response: No adverse reaction ea Disposition: :23 Co-signature as Attending Physician, Phillip Lane MD. mh7 Disposition: 03/26/20 00:04 Discharged to Home. Impression: Exudative Pharyngitis. - Condition is Stable. - Discharge Instructions: Pharyngitis, [id number]. - Medication Reconciliation Form, Thank You Letter, Antibiotic Education, Prescription Opioid Use form. - Follow up: Private Physician; When: 2 - 3 days; Reason: Worsening of condition, Recheck today's complaints, Continuance of care, Re-evaluation by your physician. Follow up: Sylvia Guerra MD; When: 2 - 3 days; Reason: Worsening of condition, Recheck today's complaints. - Problem is new. - Symptoms have improved. Signatures: Dispatcher [employer] Suki Shore RN RN ea Davies, Jonathon, RN RN jd3 Holmes, MD EDILBERTO Fisher mh7 Corrections: (The following items were deleted from the chart) 00:15 00:04 03/26/2020 00:04 Discharged to Home. Impression: Exudative Pharyngitis. Condition ea is Stable. Forms are Medication Reconciliation Form, Thank You Letter, Antibiotic Education, Prescription Opioid Use. Follow up: Private Physician; When: 2 - 3 days; Reason: Worsening of condition, Recheck today's complaints, Continuance of care, Re-evaluation by your physician. Follow up: Sylvia Guerra; When: 2 - 3 days; Reason: Worsening of condition, Recheck today's complaints. Problem is new. Symptoms have improved. mh7
== END 2020-03-26 00:15 | disposition home or self-care (01) ==
LOC: ER 21:52
DX: J02.9 Acute pharyngitis, unspecified (principal); Z20.828 Contact with and (suspected) exposure to other viral communicable diseases
CPT/HCPCS: 87070; 87081; 87804 ×2; 99283; U0002

== ENCOUNTER 2021-06-03 10:53 | Emergency (ER) | payer BC ==
[2021-06-03] MEDS ORDERED: METOCLOPRAMIDE 10 MG/2mL INJ ONE ×2 (12:51→12:52)
[2021-06-03] MEDS ORDERED: NA CHLORIDE 0.9% 500 ML ONE ×2 (12:51→12:52)
[2021-06-03] MEDS ORDERED: DIPHENHYDRAMINE 50 MG/ML VIAL ONE (12:52)
--- NOTE | 2021-06-03 14:22 | ER ---
Nurse's Notes [facility] Name: Ester Bonilla Age: 25 yrs Sex: Female : 1995 Arrival Date: 06/03/2021 Time: 10:54 Bed 15 Private MD: Chandu Weaver Diagnosis: Headache Presentation: 06/03 11:05 Chief complaint: Patient states: migraine that began 1 week ago, pt reports nausea. aa5 Coronavirus screen: At this time, the client does not indicate any symptoms associated with coronavirus-19. Ebola Screen: No symptoms or risks identified at this time. Initial Sepsis Screen: Does the patient meet any 2 criteria? No. Patient's initial sepsis screen is negative. Does the patient have a suspected source of infection? No. Patient's initial sepsis screen is negative. Risk Assessment: Do you want to hurt yourself or someone else? Patient reports no desire to harm self or others. Onset of symptoms was May 2021. 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 - Social history:: Smoking status: Reported history of juuling and/or vaping. Screenin:11 Abuse screen: Denies threats or abuse. Denies injuries from another. Nutritional jt3 screening: No deficits noted. Tuberculosis screening: No symptoms or risk factors identified. Fall Risk None identified. Assessment: 11:11 General: Appears uncomfortable, Behavior is calm, cooperative. Pain: Complains of pain jt3 in face Pain radiates to face Pain currently is 8 out of 10 on a pain scale. Quality of pain is described as throbbing, Pain began 4 hours ago. Neuro: Reports blurred vision Pt. reports throbbing headache, nausea. Pt. has hx of migraines and this feels similar. Denies hitting head. Alert and oriented x4. . 13:40 Reassessment: Pt. has been sleeping after the medications. HR and pulse stable. Family jt3 at bedside. . 14:18 Reassessment: Patient states symptoms have improved. jt3 Vital Signs: 11:06 BP 107 / 79; Pulse 78; Resp 16 S; Temp 98.8(TE); Pulse Ox 97% on R/A; Weight 63.96 kg aa5 (R); Height 5 ft. 5 in. (165.10 cm) (R); 14:17 BP 114 / 77; Pulse 83; Resp 16; Pulse Ox 99% on R/A; jt3 11:06 Body Mass Index 23.46 (63.96 kg, 165.10 cm) aa5 ED Course: 10:54 Patient arrived in ED. am2 10:54 Chandu Weaver MD is Private Physician. am2 10:59 Lionel Sandhu [facility]. jmm 10:59 Tam Haque MD is Attending Physician. jmm 11:05 Triage completed. aa5 11:05 Arm band placed on. aa5 11:09 Gerard Espino, JULIO is Primary Nurse. jt3 11:11 Patient has correct armband on for positive identification. Placed in gown. Bed in low jt3 position. Call light in reach. Side rails up X2. 11:11 No provider procedures requiring assistance completed. jt3 11:38 Inserted saline lock: 20 gauge in left antecubital area, using aseptic technique. dh3 14:21 Jason Owens MD is Referral Physician. [facility] 15:08 Patient did not have IV access during this emergency room visit. ss Administered Medications: 12:02 Drug: NS 0.9% 500 ml Route: IV; Rate: bolus; Site: left antecubital; jt3 12:02 Drug: Reglan (metoCLOPramide) 20 mg Route: IVP; Site: left antecubital; jt3 12:03 Drug: diphenhydrAMINE 12.5 mg Route: IVP; Site: left antecubital; jt3 Outcome: 14:21 Discharge ordered by MD. [facility] 15:08 Discharged to home ambulatory, with friend. ss 15:08 Condition: good 15:08 Discharge instructions given to patient, family, Instructed on discharge instructions, follow up and referral plans. Demonstrated understanding of instructions, follow-up care. 15:08 Patient left the ED. ss Signatures: Lionel Sandhu PA PA jmm Calderon, Audri, RN RN aa5 Leslee Porter, RN RN ss Amairani Cha 2 Rianna Guerra 3 Gerard Espino RN RN jt3
--- NOTE | 2021-06-03 14:22 | EDPHYS ---
Physician Documentation [facility] Name: Ester Bonilla Age: 25 yrs Sex: Female : 1995 Arrival Date: 06/03/2021 Time: 10:54 Bed 15 Private MD: Chandu Weaver ED Physician Tam Haque HPI: 06/03 11:33 This 25 yrs old Female presents to ER via Wheelchair with complaints of jmm Headache. 11:33 Onset: The symptoms/episode began/occurred gradually, this morning. Associated signs jmm and symptoms: Pertinent positives: Photophobia. Headache History: The patient has had previous headaches and this one is similar to previous episodes. The symptoms are alleviated by cold, Darkened room, the symptoms are aggravated by lights. The patient has experienced similar episodes in the past. 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 - Social history:: Smoking status: Reported history of juuling and/or vaping. ROS: 11:33 Constitutional: Negative for fever, chills, and weight loss, Cardiovascular: Negative jmm for chest pain, palpitations, and edema, Respiratory: Negative for shortness of breath, cough, wheezing, and pleuritic chest pain. 11:33 Neuro: Positive for headache. 11:33 All other systems are negative. Exam: 11:33 Constitutional: This is a well developed, well nourished patient who is awake, alert, jmm and in no acute distress. Head/Face: atraumatic. Eyes: EOMI, no conjunctival erythema appreciated ENT: Moist Mucus Membranes Neck: Trachea midline, Supple Chest/axilla: Normal chest wall appearance and motion. Cardiovascular: Regular rate and rhythm. No edema appreciated Respiratory: Normal respirations, no respiratory distress appreciated Abdomen/GI: Non distended, soft Back: Normal ROM Skin: General appearance color normal MS/ Extremity: Moves all extremities, no obvious deformities appreciated, no edema noted to the lower extremities Neuro: Awake and alert, normal gait Psych: Behavior is normal, Mood is normal, Patient is cooperative and pleasant Vital Signs: 11:06 BP 107 / 79; Pulse 78; Resp 16 S; Temp 98.8(TE); Pulse Ox 97% on R/A; Weight 63.96 kg aa5 (R); Height 5 ft. 5 in. (165.10 cm) (R); 14:17 BP 114 / 77; Pulse 83; Resp 16; Pulse Ox 99% on R/A; jt3 11:06 Body Mass Index 23.46 (63.96 kg, 165.10 cm) aa5 MDM: 11:31 [facility] 14:20 Data reviewed: vital signs, nurses notes. Counseling: I had a detailed discussion with sravan the patient and/or guardian regarding: the historical points, exam findings, and any diagnostic results supporting the discharge/admit diagnosis, the need for outpatient follow up, to return to the emergency department if symptoms worsen or persist or if there are any questions or concerns that arise at home. ED course: Is feeling much better. Patient advised to follow-up with PCP or neurology for further evaluation otherwise given strict return precautions. Patient understood and agrees to plan of care.. Administered Medications: 12:02 Drug: NS 0.9% 500 ml Route: IV; Rate: bolus; Site: left antecubital; jt3 12:02 Drug: Reglan (metoCLOPramide) 20 mg Route: IVP; Site: left antecubital; jt3 12:03 Drug: diphenhydrAMINE 12.5 mg Route: IVP; Site: left antecubital; jt3 Disposition Summary: 06/03/21 14:21 [facility]charge [facility] Condition: Stable [facility] Diagnosis - [facility]ache [facility] - With: Jason Owens MD - When: 2 - 3 days - Reason: Recheck today's complaints, Continuance of care, Re-evaluation by your physician Discharge Instructions: - Discharge Summary Sheet [facility] - [facility]raine [facility] Forms: - Medication Reconciliation Form [facility] - Thank You Letter [facility] - Antibiotic Education [facility] - Prescription Opioid Use marlo - Work release form eb Addendum: 06/05/2021 23:05 Co-signature as Attending Physician, Tam ace a2 Signatures: Lionel Sandhu PA PA jmm Calderon, Audri, RN RN aa5 Tam Haque MD MD ma2 Gerard Espino RN RN jt3
[2021-06-03 15:30] VITALS: TEMP 98.8
[2021-06-03 15:32] VITALS: BP 114/77; O2SAT 99
== END 2021-06-03 15:08 | disposition home or self-care (01) ==
LOC: ER 10:53
DX: R51.9 Headache, unspecified (principal)
CPT/HCPCS: 96375; 96374; 99283; J2765 ×2; J1200; J7040 ×2

== ENCOUNTER 2022-02-20 15:29 | Emergency (ER) | payer BC ==
--- NOTE | 2022-02-20 16:20 | RAD REPORT ---
EXAM DESCRIPTION: RAD - Wrist Left 3 View - 02/20/2022 4:03 pm CLINICAL HISTORY: PAIN COMPARISON: Wrist Left 3 View dated 07/07/2012 FINDINGS: No acute fracture. No malalignment. No significant focal degenerative changes. IMPRESSION: No acute osseous abnormality involving the left wrist.
--- NOTE | 2022-02-20 16:44 | EDPHYS ---
Physician Documentation [facility] Name: Ester Bonilla Age: 26 yrs Sex: Female : 1995 Arrival Date: 02/20/2022 Time: 15:31 Bed Waiting Private MD: ED Physician Aashish Cornelisu HPI: 02/20 15:37 This 26 yrs old Female presents to ER via Ambulatory with complaints of Wrist jmm Injury. 15:37 The patient or guardian reports injury, pain. Onset: The symptoms/episode jmm began/occurred acutely, 1 month(s) ago. Modifying factors: The symptoms are alleviated by nothing, the symptoms are aggravated by movement. Associated signs and symptoms: Pertinent positives:. The patient has experienced similar episodes in the past. This is a 26 year old female with a history of anxiety, migraines that presents to the ED with complaints of left wrist pain on the ulnar side. Symptoms began approx 1 month ago. 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 - Social history:: Smoking status: Reported history of juuling and/or vaping. ROS: 15:37 Constitutional: Negative for fever, chills, and weight loss, Cardiovascular: Negative jmm for chest pain, palpitations, and edema, Respiratory: Negative for shortness of breath, cough, wheezing, and pleuritic chest pain. 15:37 MS/extremity: Positive for injury or acute deformity. 15:37 All other systems are negative. Exam: 15:37 Constitutional: This is a well developed, well nourished patient who is awake, alert, jmm and in no acute distress. Head/Face: atraumatic. Eyes: EOMI, no conjunctival erythema appreciated ENT: Moist Mucus Membranes Neck: Trachea midline, Supple Chest/axilla: Normal chest wall appearance and motion. Cardiovascular: Regular rate and rhythm. No edema appreciated Respiratory: Normal respirations, no respiratory distress appreciated Abdomen/GI: Non distended Back: Normal ROM Skin: General appearance color normal 15:37 Musculoskeletal/extremity: pain on palpation of the left wrist on the ulnar side, no deformity appreciated, compartment are soft, NVI. 15:37 Skin: Appearance: Color: normal in color. 15:37 Neuro: Orientation: is normal, Mentation: is normal, Memory: is normal. 15:37 Psych: Behavior/mood is pleasant, cooperative. Vital Signs: 15:33 BP 109 / 78; Pulse 87; Resp 16; Temp 98.1; Pulse Ox 100% ; Weight 58.06 kg; Height 5 hb ft. 5 in. (165.10 cm); Pain 7/10; 15:33 Body Mass Index 21.30 (58.06 kg, 165.10 cm) hb MDM: 15:37 Patient medically screened. [facility] 16:35 Data reviewed: vital signs, nurses notes. [facility] 16:42 Counseling: I had a detailed discussion with the patient and/or guardian regarding: the [facility] historical points, exam findings, and any diagnostic results supporting the discharge/admit diagnosis, radiology results, the need for outpatient follow up, to return to the emergency department if symptoms worsen or persist or if there are any questions or concerns that arise at home. ED course: Xray is negative. Patient is advised to follow up with ortho and otherwise given strict return precautions. Patient understood and agrees with the plan of care. . 02/20 15:37 Order name: Wrist Left (3 View) XRAY; Complete Time: 16:21 [facility] Administered Medications: No medications were administered Disposition: 22:45 Co-signature as Attending Physician, Aashish ESTRELLA was immediately available on-site ms3 in the Emergency Department for consultation in the care of the patient.. Disposition Summary: 02/20/22 16:43 Discharge Ordered Location: Home [facility] Condition: Stable [facility] Diagnosis - Other specified sprain of left wrist [facility] Followup: [facility] - With: James Galloway MD - When: 2 - 3 days - Reason: Recheck today's complaints, Continuance of care, Re-evaluation by your physician Discharge Instructions: - Discharge Summary Sheet [facility] - Wrist Sprain Re[facility] Forms: - Medication Reconciliation Form [facility] - Thank You Letter [facility] - Work release form [facility] - Antibiotic Education [facility] - Prescription Opioid Use [facility] Prescriptions: - Diclofenac Sodium 75 mg Oral Tablet Sustained Release - take 1 tablet by ORAL route 2 times per day; 30 tablet; Refills: 0, Product jmdb Selection Permitted Signatures: Dispatcher [employer] EDLionel Palmer PA PA jmm Baxter, Heather, RN RN Aashish Mahmood, DO THOMAS ms3
--- NOTE | 2022-02-20 16:44 | ER ---
Nurse's Notes [facility] Name: Ester Bonilla Age: 26 yrs Sex: Female : 1995 Arrival Date: 02/20/2022 Time: 15:31 Bed Waiting Private MD: Diagnosis: Other specified sprain of left wrist Presentation: 02/20 15:33 Chief complaint: Left wrist pain 1 month. 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 Coronavirus screen: At this time, the client does not indicate any symptoms associated with coronavirus-19. Ebola Screen: No symptoms or risks identified at this time. Initial Sepsis Screen: Does the patient meet any 2 criteria? No. Patient's initial sepsis screen is negative. Does the patient have a suspected source of infection? No. Patient's initial sepsis screen is negative. Risk Assessment: Do you want to hurt yourself or someone else? Patient reports no desire to harm self or others. Onset of symptoms was January 2022. 15:33 Method Of Arrival: Ambulatory hb 15:33 Acuity: NISHI 4 hb Triage Assessment: 15:36 General: Appears in no apparent distress. Behavior is calm, cooperative. Pain: Pain hb currently is 7 out of 10 on a pain scale. Neuro: Oriented to person, place, time, situation. Cardiovascular: Patient's skin is warm and dry. Respiratory: Respiratory effort is even, unlabored, Respiratory pattern is regular, symmetrical. Musculoskeletal: Reports left wrist pain. 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 - Social history:: Smoking status: Reported history of juuling and/or vaping. Screenin:00 Abuse screen: Denies threats or abuse. Denies injuries from another. Nutritional hb screening: No deficits noted. Tuberculosis screening: No symptoms or risk factors identified. Fall Risk None identified. Vital Signs: 15:33 BP 109 / 78; Pulse 87; Resp 16; Temp 98.1; Pulse Ox 100% ; Weight 58.06 kg; Height 5 hb ft. 5 in. (165.10 cm); Pain 7/10; 15:33 Body Mass Index 21.30 (58.06 kg, 165.10 cm) hb ED Course: 15:31 Patient arrived in ED. mr 15:31 Lionel Sandhu PA is PHCP. [facility] 15:31 Aashish Cornelius DO is Attending Physician. [facility] 15:35 Triage completed. hb 15:36 Arm band placed on. hb 16:00 Patient has correct armband on for positive identification. hb 16:00 No provider procedures requiring assistance completed. hb 16:05 Wrist Left (3 View) XRAY In Process Unspecified. EDMS 16:43 James Galloway MD is Referral Physician. m 17:05 Patient did not have IV access during this emergency room visit. hb Administered Medications: No medications were administered Outcome: 16:43 Discharge ordered by . [facility] 17:05 Discharged to home ambulatory. hb 17:05 Condition: stable 17:05 Discharge instructions given to patient, Instructed on discharge instructions, follow up and referral plans. medication usage, Demonstrated understanding of instructions, follow-up care, medications, Prescriptions given X 1. 17:06 Patient left the ED. hb Signatures: Dispatcher [employer] EDMS Lionel Sandhu PA PA jmm Rivera, Mary Eneida Raymond, RN RN hb
[2022-02-20 17:25] VITALS: BP 109/78; TEMP 98.1; O2SAT 100
== END 2022-02-20 17:06 | disposition home or self-care (01) ==
LOC: ER 15:29
DX: S63.592A Other specified sprain of left wrist, initial encounter (principal); M25.532 Pain in left wrist

== ENCOUNTER 2022-09-15 21:33 | Emergency (ER) | payer BC ==
--- OUTSIDE RECORDS SUMMARY | 2022-09-15 21:52 | XMS REPORT | Continuity of Care Document ---
:[address] [facility] t Address [address] [place] [address] Care Team Providers Name Role Phone Carine Escalera MD Primary Care Physician IJEOMA POLLOCK Attending Clinician Unavailable IJEOMA POLLOCK Attending Clinician Unavailable Pob, [facility] Main Attending Clinician Unavailable Lucio Amaya MD Attending Clinician Karson Maynard Attending Clinician [facility]70 Attending Clinician Unavailable Jerri Lara Attending Clinician JERRI ASHBY Attending Clinician Unavailable CARINE ESCALERA Attending Clinician Unavailable Doctor Unassigned, [place] Attending Clinician Unavailable GUANAKO MEJIA Attending Clinician Unavailable Guanako Mejia DO Attending Clinician Esteban Vaughn DO Attending Clinician Ofelia Shepherd Attending Clinician IJEOMA POLLOCK Admitting Clinician Unavailable Payers Payer Name Policy Type Policy Number Effective Date Expiration Date S saba [facility] [id number] 2017 00:00:00 [employer] OF 9 [id number] 2021 [place] 00:00:00 CAPIT[place]) Problems Condition Condition Condition Status Onset Resolution Last Treating Co mments Source Name Details Category Date Date Treatment Clinician Date Menorrhagi Menorrhagi Disease Active U nivers a with a with 2-10 [place] Breast Breast Disease Active 2021-08 Univers pain, left pain, left 0-20 it y of 00:: Medical Branch Vaginal Vaginal Disease Active 2021-08 Univers discharge discharge 0-17 ity of 00:00: [place] [facility] Irregular Irregular Disease Active 2021-08 Uni vers menstrual menstrual 0-17 ity of cycle cycle 00:00: Medical Branch Hirsutism Hirsutism Disease Active 2021-08 Uni vers 0-17 ity of 00:00: Medical Branch Screening, Screening, Disease Active U nivers anemia, anemia, 5-04 [place] , iron [place] Absence of Absence of Disease Active U nivers menstruati menstruati 5-04 it y of on on 00:00: Medical Branch Pain Pain Disease Active Univers pelvic pelvic 5-04 ity of 00:00: Medical Branch Need for Need for Disease Active Unive rs HPV HPV 5-04 ity of vaccine vaccine 00:00: Medical Branch Bipolar 1 Bipolar 1 Disease Active Uni vers disorder disorder 3-14 ity of 00:00: Medical Branch Right Right Disease Active Univers wrist pain wrist pain 3-14 it y of 00:00: [place] [facility] Dizziness Problem Active 2022-01-27 Me moria (finding) Dizziness 22:26:39 l (finding) All Active Problem 01/27/2022 [facility] Migraine Migraine Problem Active 2022-01-27 Memoria (disorder) (disorder) 22:26:39 l Active [place] Problem 01/27/2022 [facility] Allergies, Adverse Reactions, Alerts Allergy Allergy Status Severity Reaction(s) Onset Inactive Treating Comm ents Source Name Type Date Date Clinician NO KNOWN Drug Active Univers ALLERGIE Class ity of S [facility] Social History Social Habit Start Date Stop Date Quantity Comments Source History SDOH Mallika nance Alcohol Frequency History SDOH Mallika nance Alcohol Std Drinks History SDOH Mallika nance Alcohol Binge Exposure to 2022-09-04 2022-09-14 Not sure [facility] 00:00:00 09:03:00 [facility] (event) Branch Alcohol intake 2022-09-14 2022-09-14 Current drinker of Un iversity of 00:00:00 00:00:00 alcohol (finding) [facility] [place] Tobacco use and 2022-05-21 2022-05-21 Smokeless tobacco Un iversity of exposure 00:00:00 00:00:[address] [facility] Social History 2022-01-02 2022-01-02 [facility] Dimitrios smith 18:15:53 18:15:53 Education 2021-10-16 2021-10-16 12 Mallika Garcia 00:00:00 00:00:00 Alcohol Comment 2021-10-16 2021-10-16 occassional Mallika haq 00:00:00 00:00:00 [birth year] At [birth year] Mallika Anderson mendez 00:00:00 00:00:00 Smoking Status Start Date Stop Date Source Never smoked tobacco Formerly [facility] Medications Ordered Filled Start Stop Current Ordering Indication Dosage Frequency Signature Comments Components Source Medication Medication Date Date Medication? Clinician (SIG) Name Name metroNIDAZO 2021-08- No [id number] 500mg Take 1 Univers LE 500 mg 0-19 10-27 tablet by ity of tablet 00:00: 04:59 mouth [place] 00 :00 every 12 Medical (twelve) Branch hours for 7 days. metroNIDAZO 2021-08- No [id number] 500mg Take 1 Univers LE 500 mg 0-19 10-27 tablet by ity of tablet 00:00: 04:59 mouth [place] 00 :00 every 12 Medical (twelve) Branch hours for 7 days. metroNIDAZO 2021-08- No [id number] 500mg Take 1 Univers LE 500 mg 0-19 10-27 tablet by ity of tablet 00:00: 04:59 mouth [place] 00 :00 every 12 Medical (twelve) Branch hours for 7 days. Effexor XR 2-0 Yes 37.5 mg = Me moria 37.5 mg 5-31 1 cap, PO, l oral 19:10: Daily, # [place] capsule, 00 30 cap, 3 extended Refill(s), release Pharmacy: [facility] [id number], 163.83, cm, 01/02/22 13:48:00 CDT, Height, 57.415, kg, 01/02/22 13:48:00 CDT, Weight ARIPiprazol 2021-0 Yes 0 Memori a e 15 mg 5-31 Refill(s) l oral tablet 18:17: Robbie n 00 meclizine 2-0 Yes 25 mg = 1 Mem oria 25 mg oral 5-31 tab, PO, l tablet 18:16: TID, PRN All 00 for dizziness, # 60 tab, 0 Refill(s) venlafaxine 2021-0 Yes 37.5 mg = U nivers XR 37.5 mg 5-31 1 cap, PO, ity of 24 hr 00:00: Daily, # [place] capsule 00 30 cap, 3 Medical Refill(s), Branch Pharmacy: [facility] [id number], 163.83, cm, 01/02/22 13:48:00 CDT, Height, 57.415, kg, 01/02/22 13:48:00 CDT, Weight venlafaxine 2021-0 Yes 37.5 mg = U nivers XR 37.5 mg 5-31 1 cap, PO, ity of 24 hr 00:00: Daily, # [place] capsule 00 30 cap, 3 Medical Refill(s), Branch Pharmacy: [facility] [id number], 163.83, cm, 01/02/22 13:48:00 CDT, Height, 57.415, kg, 01/02/22 13:48:00 CDT, Weight venlafaxine 2021-0 Yes 37.5 mg = U nivers XR 37.5 mg 5-31 1 cap, PO, ity of 24 hr 00:00: Daily, # [place] capsule 00 30 cap, 3 Medical Refill(s), Branch Pharmacy: [facility] [id number], 163.83, cm, 01/02/22 13:48:00 CDT, Height, 57.415, kg, 01/02/22 13:48:00 CDT, Weight venlafaxine 2-0 Yes 37.5 mg = U nivers XR 37.5 mg 5-31 1 cap, PO, ity of 24 hr 00:00: Daily, # [place] capsule 00 30 cap, 3 Medical Refill(s), [place] Pharmacy: [facility] [id number], 163.83, cm, 01/02/22 13:48:00 CDT, Height, 57.415, kg, 01/02/22 13:48:00 CDT, Weight venlafaxine 2021-0 Yes 37.5 mg = U nivers XR 37.5 mg 5-31 1 cap, PO, ity of 24 hr 00:00: Daily, # [place] capsule 00 30 cap, 3 Medical Refill(s), [place] Pharmacy: [facility] [id number], 163.83, cm, 01/02/22 13:48:00 CDT, Height, 57.415, kg, 01/02/22 13:48:00 CDT, Weight venlafaxine 2021-0 Yes 37.5 mg = U nivers XR 37.5 mg 5-31 1 cap, PO, ity of 24 hr 00:00: Daily, # [place] capsule 00 30 cap, 3 Medical Refill(s), [place] Pharmacy: [facility] [id number], 163.83, cm, 01/02/22 13:48:00 CDT, Height, 57.415, kg, 01/02/22 13:48:00 CDT, Weight venlafaxine 2021-0 Yes 37.5 mg = U nivers XR 37.5 mg 5-31 1 cap, PO, ity of 24 hr 00:00: Daily, # [place] capsule 00 30 cap, 3 Medical Refill(s), [place] Pharmacy: [facility] [id number], 163.83, cm, 01/02/22 13:48:00 CDT, Height, 57.415, kg, 01/02/22 13:48:00 CDT, Weight venlafaxine 2-0 Yes 37.5 mg = U nivers XR 37.5 mg 5-31 1 cap, PO, ity of 24 hr 00:00: Daily, # [place] capsule 00 30 cap, 3 Medical Refill(s), [place] Pharmacy: [facility] [id number], 163.83, cm, 01/02/22 13:48:00 CDT, Height, 57.415, kg, 01/02/22 13:48:00 CDT, Weight venlafaxine Yes 37.5 mg = U nivers XR 37.5 mg 5-31 1 cap, PO, ity of 24 hr 00:00: Daily, # [place] capsule 00 30 cap, 3 Medical Refill(s), [place] Pharmacy: [facility] [id number], 163.83, cm, 01/02/22 13:48:00 CDT, Height, 57.415, kg, 01/02/22 13:48:00 CDT, Weight venlafaxine Yes 37.5 mg = U nivers XR 37.5 mg 5-31 1 cap, PO, ity of 24 hr 00:00: Daily, # [place] capsule 00 30 cap, 3 Medical Refill(s), [place] Pharmacy: [facility] [id number], 163.83, cm, 01/02/22 13:48:00 CDT, Height, 57.415, kg, 01/02/22 13:48:00 CDT, Weight Aripiprazol Yes [id number] 15mg Take 1 Mallika e (Abilify) 5-04 tablet (15 Se ybold 15 MG oral 00:00: mg total) Tablet 00 by mouth daily Meclizine 0 Yes [id number] 25mg [id number] Take 1 Mallika HCl 25 MG 5-02 [id number] tablet (25 Sey[place] oral Tablet 00:00: 3D mg total) 00 by mouth 3 times daily as needed Meclizine 2021-0 Yes [id number] 25mg [id number] Take 1 Mallika HCl 25 MG 5-02 [id number] tablet (25 [place] oral Tablet 00:00: 3D mg total) 00 by mouth 3 times daily as needed No known 0 No No known Kelse y medications 3-14 medication Se ybold 15:27: s 26 fluticasone 2020-0 Yes [id number] 2{spray Use 2 Univers propionate 8-04 } Sprays in ity of 50 00:00: each [place] mcg/actuati 00 nostril Medic al on nasal daily. Branch spray chlorphenir 2020-0 Yes [id number] 4mg Take 1 Univers amine 4 mg 8-04 tablet by ity of tablet 00:00: mouth [place] 00 every 6 Medical (six) Branch hours as needed for Allergies or Runny nose. fluticasone 2020-0 Yes [id number] 2{spray Use 2 Univers propionate 8-04 } Sprays in ity of 50 00:00: each [place] mcg/actuati 00 nostril Medic al on nasal daily. Branch spray chlorphenir 2020-0 Yes [id number] 4mg Take 1 Univers amine 4 mg 8-04 tablet by ity of tablet 00:00: mouth [place] 00 every 6 Medical (six) Branch hours as needed for Allergies or Runny nose. fluticasone 2020-0 Yes [id number] 2{spray Use 2 Univers propionate 8-04 } Sprays in ity of 50 00:00: each [place] mcg/actuati 00 nostril Medic al on nasal daily. Branch spray chlorphenir 2020-0 Yes [id number] 4mg Take 1 Univers amine 4 mg 8-04 tablet by ity of tablet 00:00: mouth [place] 00 every 6 Medical (six) Branch hours as needed for Allergies or Runny nose. fluticasone 2020-0 Yes [id number] 2{spray Use 2 Univers propionate 8-04 } Sprays in ity of 50 00:00: each [place] mcg/actuati 00 nostril Medic al on nasal daily. Branch spray chlorphenir 2020-0 Yes [id number] 4mg Take 1 Univers amine 4 mg 8-04 tablet by ity of tablet 00:00: mouth [place] 00 every 6 Medical (six) Branch hours as needed for Allergies or Runny nose. fluticasone 2021-0 Yes [id number] 2{spray Use 2 Univers propionate 8-04 } Sprays in ity of 50 00:00: each [place] mcg/actuati 00 nostril Medic al on nasal daily. Branch spray chlorphenir 2021-0 Yes [id number] 4mg Take 1 Univers amine 4 mg 8-04 tablet by ity of tablet 00:00: mouth [place] 00 every 6 Medical (six) Branch hours as needed for Allergies or Runny nose. fluticasone 2020-0 Yes [id number] 2{spray Use 2 Univers propionate 8-04 } Sprays in ity of 50 00:00: each [place] mcg/actuati 00 nostril Medic al on nasal daily. Branch spray chlorphenir 2020-0 Yes [id number] 4mg Take 1 Univers amine 4 mg 8-04 tablet by ity of tablet 00:00: mouth [place] 00 every 6 Medical (six) Branch hours as needed for Allergies or Runny nose. fluticasone 2020-0 Yes [id number] 2{spray Use 2 Univers propionate 8-04 } Sprays in ity of 50 00:00: each [place] mcg/actuati 00 nostril Medic al on nasal daily. Branch spray chlorphenir 2020-0 Yes [id number] 4mg Take 1 Univers amine 4 mg 8-04 tablet by ity of tablet 00:00: mouth [place] 00 every 6 Medical (six) Branch hours as needed for Allergies or Runny nose. fluticasone 2020-0 Yes [id number] 2{spray Use 2 Univers propionate 8-04 } Sprays in ity of 50 00:00: each [place] mcg/actuati 00 nostril Medic al on nasal daily. Branch spray chlorphenir 2020-0 Yes [id number] 4mg Take 1 Univers amine 4 mg 8-04 tablet by ity of tablet 00:00: mouth [place] 00 every 6 Medical (six) Branch hours as needed for Allergies or Runny nose. fluticasone 2020-0 Yes [id number] 2{spray Use 2 Univers propionate 8-04 } Sprays in ity of 50 00:00: each [place] mcg/actuati 00 nostril Medic al on nasal daily. Branch spray chlorphenir 2020-0 Yes [id number] 4mg Take 1 Univers amine 4 mg 8-04 tablet by ity of tablet 00:00: mouth [place] 00 every 6 Medical (six) Branch hours as needed for Allergies or Runny nose. fluticasone 2020-0 Yes [id number] 2{spray Use 2 Univers propionate 8-04 } Sprays in ity of 50 00:00: each [place] mcg/actuati 00 nostril Medic al on nasal daily. Branch spray chlorphenir 2021-0 Yes [id number] 4mg Take 1 Univers amine 4 mg 8-04 tablet by ity of tablet 00:00: mouth [place] 00 every 6 Medical (six) Branch hours as needed for Allergies or Runny nose. fluticasone 202-0 Yes [id number] 2{spray Use 2 Univers propionate 8-04 } Sprays in ity of 50 00:00: each [place] mcg/actuati 00 nostril Medic al on nasal daily. Branch spray chlorphenir 202-0 Yes [id number] 4mg Take 1 Univers amine 4 mg 8-04 tablet by ity of tablet 00:00: mouth [place] 00 every 6 Medical (six) Branch hours as needed for Allergies or Runny nose. fluticasone 202-0 Yes [id number] 2{spray Use 2 Univers propionate 8-04 } Sprays in ity of 50 00:00: each [place] mcg/actuati 00 nostril Medic al on nasal daily. Branch spray chlorphenir 2020-0 Yes [id number] 4mg Take 1 Univers amine 4 mg 8-04 tablet by ity of tablet 00:00: mouth [place] 00 every 6 Medical (six) Branch hours as needed for Allergies or Runny nose. fluticasone 2020-0 Yes [id number] 2{spray Use 2 Univers propionate 8-04 } Sprays in ity of 50 00:00: each [place] mcg/actuati 00 nostril Medic al on nasal daily. Branch spray chlorphenir 2020-0 Yes [id number] 4mg Take 1 Univers amine 4 mg 8-04 tablet by ity of tablet 00:00: mouth [place] 00 every 6 Medical (six) Branch hours as needed for Allergies or Runny nose. fluticasone 2020-0 Yes [id number] 2{spray Use 2 Univers propionate 8-04 } Sprays in ity of 50 00:00: each [place] mcg/actuati 00 nostril Medic al on nasal daily. Branch spray chlorphenir 2020-0 Yes [id number] 4mg Take 1 Univers amine 4 mg 8-04 tablet by ity of tablet 00:00: mouth [place] 00 every 6 Medical (six) Branch hours as needed for Allergies or Runny nose. ibuprofen 2018-0 Yes 600mg Take 1 Unive rs 600 mg 1-07 tablet by ity of tablet 00:00: mouth [place] 00 every 6 Medical (six) Branch hours as needed for Pain (scale 1-3). ibuprofen 2018-0 Yes 600mg Take 1 Unive rs 600 mg 1-07 tablet by ity of tablet 00:00: mouth [place] 00 every 6 Medical (six) Branch hours as needed for Pain (scale 1-3). ibuprofen 2019-0 Yes 600mg Take 1 Unive rs 600 mg 1-07 tablet by ity of tablet 00:00: mouth [place] 00 every 6 Medical (six) Branch hours as needed for Pain (scale 1-3). ibuprofen 2019-0 Yes 600mg Take 1 Unive rs 600 mg 1-07 tablet by ity of tablet 00:00: mouth [place] 00 every 6 Medical (six) Branch hours as needed for Pain (scale 1-3). ibuprofen 2019-0 Yes 600mg Take 1 Unive rs 600 mg 1-07 tablet by ity of tablet 00:00: mouth [place] 00 every 6 Medical (six) Branch hours as needed for Pain (scale 1-3). ibuprofen 2019-0 Yes 600mg Take 1 Unive rs 600 mg 1-07 tablet by ity of tablet 00:00: mouth [place] 00 every 6 Medical (six) Branch hours as needed for Pain (scale 1-3). ibuprofen 2019-0 Yes 600mg Take 1 Unive rs 600 mg 1-07 tablet by ity of tablet 00:00: mouth [place] 00 every 6 Medical (six) Branch hours as needed for Pain (scale 1-3). ibuprofen 2019-0 Yes 600mg Take 1 Unive rs 600 mg 1-07 tablet by ity of tablet 00:00: mouth [place] 00 every 6 Medical (six) Branch hours as needed for Pain (scale 1-3). ibuprofen 2019-0 Yes 600mg Take 1 Unive rs 600 mg 1-07 tablet by ity of tablet 00:00: mouth [place] 00 every 6 Medical (six) Branch hours as needed for Pain (scale 1-3). ibuprofen 2019-0 Yes 600mg Take 1 Unive rs 600 mg 1-07 tablet by ity of tablet 00:00: mouth [place] 00 every 6 Medical (six) Branch hours as needed for Pain (scale 1-3). ibuprofen 2019-0 Yes 600mg Take 1 Unive rs 600 mg 1-07 tablet by ity of tablet 00:00: mouth [place] 00 every 6 Medical (six) Branch hours as needed for Pain (scale 1-3). ibuprofen 2019-0 Yes 600mg Take 1 Unive rs 600 mg 1-07 tablet by ity of tablet 00:00: mouth [place] 00 every 6 Medical (six) Branch hours as needed for Pain (scale 1-3). ibuprofen 2019-0 Yes 600mg Take 1 Unive rs 600 mg 1-07 tablet by ity of tablet 00:00: mouth [place] 00 every 6 Medical (six) Branch hours as needed for Pain (scale 1-3). ibuprofen 2019-0 Yes 600mg Take 1 Unive rs 600 mg 1-07 tablet by ity of tablet 00:00: mouth [place] 00 every 6 Medical (six) Branch hours as needed for Pain (scale 1-3). metoclopram 2017- Yes 10mg Take 1 Univ ers niles HCl 10 1-21 tablet by ity of mg tablet 00:00: mouth [place] 00 every 6 Medical (six) Branch hours. metoclopram 2017- Yes 10mg Take 1 Univ ers niles HCl 10 1-21 tablet by ity of mg tablet 00:00: mouth [place] 00 every 6 Medical (six) Branch hours. metoclopram 2017-2021- No 10mg Take 1 Uni vers niles HCl 10 1-21 10-17 tablet by ity of mg tablet 00:00: 00:00 mouth [place] 00 :00 every 6 Medical (six) Branch hours. metoclopram 2017-2021- No 10mg Take 1 Uni vers niles HCl 10 1-21 10-17 tablet by ity of mg tablet 00:00: 00:00 mouth [place] 00 :00 every 6 Medical (six) Branch hours. metoclopram 2017-2021- No 10mg Take 1 Uni vers niles HCl 10 1-21 10-17 tablet by ity of mg tablet 00:00: 00:00 mouth [place] 00 :00 every 6 Medical (six) Branch hours. metoclopram 2017-2021- No 10mg Take 1 Uni vers niles HCl 10 1-21 10-17 tablet by ity of mg tablet 00:00: 00:00 mouth [place] 00 :00 every 6 Medical (six) Branch hours. Immunizations Ordered Immunization Filled Immunization Date Status Commen ts Source Name Name HPV9 2021-12-06 Completed University of 00:00:00 [facility] 2021-12-06 Completed University of 00:00:00 [facility] 2021-12-06 Completed University of 00:00:00 [facility] 2021-12-06 Completed University of 00:00:00 [facility] HPV9 2021-12-06 Completed University of 00:00:00 [facility] HPV9 2021-12-06 Completed University of 00:00:00 [facility] HPV9 2021-12-06 Completed University of 00:00:00 [facility] HPV9 2021-12-06 Completed University of 00:00:00 [facility] Branch HPV9 2021-12-06 Completed University of 00:00:00 [facility] Branch HPV9 2021-12-06 Completed University of 00:00:00 [facility] Branch HPV9 2021-12-06 Completed University of 00:00:00 [facility] Branch HPV9 2021-12-06 Completed University of 00:00:00 [facility] Branch HPV9 2021-12-06 Completed University of 00:00:00 [facility] HPV9 2021-12-06 Completed University of 00:00:00 [facility] SARS-COV-2 COVID-19 2020-12-24 Completed Unive rsity of PFIZER VACCINE 00:00:00 [facility] SARS-COV-2 COVID-19 2020-12-24 Completed Unive rsity of PFIZER VACCINE 00:00:00 [facility] SARS-COV-2 COVID-19 2020-12-24 Completed Unive rsity of PFIZER VACCINE 00:00:00 [facility] SARS-COV-2 COVID-19 2020-12-24 Completed Unive rsity of PFIZER VACCINE 00:00:00 [facility] SARS-COV-2 COVID-19 2020-12-24 Completed Unive rsity of PFIZER VACCINE 00:00:00 [facility] SARS-COV-2 COVID-19 2020-12-24 Completed Unive rsity of PFIZER VACCINE 00:00:00 [facility] SARS-COV-2 COVID-19 2020-12-24 Completed Unive rsity of PFIZER VACCINE 00:00:00 [facility] SARS-COV-2 COVID-19 2020-12-24 Completed Unive rsity of PFIZER VACCINE 00:00:00 [facility] SARS-COV-2 COVID-19 2020-12-24 Completed Unive rsity of PFIZER VACCINE 00:00:00 [facility] SARS-COV-2 COVID-19 2020-12-24 Completed Unive rsity of PFIZER VACCINE 00:00:00 [facility] SARS-COV-2 COVID-19 2020-12-24 Completed Unive rsity of PFIZER VACCINE 00:00:00 [facility] SARS-COV-2 COVID-19 2020-12-24 Completed Unive rsity of PFIZER VACCINE 00:00:00 [facility] SARS-COV-2 COVID-19 2020-12-24 Completed Unive rsity of PFIZER VACCINE 00:00:00 [facility] SARS-COV-2 COVID-19 2020-12-24 Completed Unive rsity of PFIZER VACCINE 00:00:00 [facility] SARS-COV-2 COVID-19 2020-12-03 Completed Unive rsity of PFIZER VACCINE 00:00:00 [facility] SARS-COV-2 COVID-19 2020-12-03 Completed Unive rsity of PFIZER VACCINE 00:00:00 [facility] SARS-COV-2 COVID-19 2020-12-03 Completed Unive rsity of PFIZER VACCINE 00:00:00 [facility] SARS-COV-2 COVID-19 2020-12-03 Completed Unive rsity of PFIZER VACCINE 00:00:00 [facility] SARS-COV-2 COVID-19 2020-12-03 Completed Unive rsity of PFIZER VACCINE 00:00:00 [facility] SARS-COV-2 COVID-19 2020-12-03 Completed Unive rsity of PFIZER VACCINE 00:00:00 [facility] SARS-COV-2 COVID-19 2020-12-03 Completed Unive rsity of PFIZER VACCINE 00:00:00 [facility] SARS-COV-2 COVID-19 2020-12-03 Completed Unive rsity of PFIZER VACCINE 00:00:00 [facility] SARS-COV-2 COVID-19 2020-12-03 Completed Unive rsity of PFIZER VACCINE 00:00:00 [facility] SARS-COV-2 COVID-19 2020-12-03 Completed Unive rsity of PFIZER VACCINE 00:00:00 [facility] SARS-COV-2 COVID-19 2020-12-03 Completed Unive rsity of PFIZER VACCINE 00:00:00 [facility] SARS-COV-2 COVID-19 2020-12-03 Completed Unive rsity of PFIZER VACCINE 00:00:00 [facility] SARS-COV-2 COVID-19 2020-12-03 Completed Unive rsity of PFIZER VACCINE 00:00:00 [facility] SARS-COV-2 COVID-19 2020-12-03 Completed Unive rsity of PFIZER VACCINE 00:00:00 [facility] Influenza Virus 2016-06-23 Completed Universit y of Vaccine (3+ yrs) 00:00:00 [facility] Influenza Virus 2016-06-23 Completed Universit y of Vaccine (3+ yrs) 00:00:00 [facility] Influenza Virus 2016-06-23 Completed Universit y of Vaccine (3+ yrs) 00:00:00 [facility] Influenza Virus 2016-06-23 Completed Universit y of Vaccine (3+ yrs) 00:00:00 [facility] Influenza Virus 2016-06-23 Completed Universit y of Vaccine (3+ yrs) 00:00:00 [facility] Influenza Virus 2016-06-23 Completed Universit y of Vaccine (3+ yrs) 00:00:00 [facility] Influenza Virus 2016-06-23 Completed Universit y of Vaccine (3+ yrs) 00:00:00 [facility] Influenza Virus 2016-06-23 Completed Universit y of Vaccine (3+ yrs) 00:00:00 [facility] Influenza Virus 2016-06-23 Completed Universit y of Vaccine (3+ yrs) 00:00:00 [facility] Influenza Virus 2016-06-23 Completed Universit y of Vaccine (3+ yrs) 00:00:00 [facility] Influenza Virus 2016-06-23 Completed Universit y of Vaccine (3+ yrs) 00:00:00 [facility] Influenza Virus 2016-06-23 Completed Universit y of Vaccine (3+ yrs) 00:00:00 [facility] Influenza Virus 2016-06-23 Completed Universit y of Vaccine (3+ yrs) 00:00:00 [facility] Influenza Virus 2016-06-23 Completed Universit y of Vaccine (3+ yrs) 00:00:00 [facility] Influenza, Seasonal, 2016-06-23 Completed [place] Injectable, 00:00:00 Preservative Free Influenza, Seasonal, 2016-06-23 Completed [place] Injectable, 00:00:00 Preservative Free Influenza Virus 2012-06-18 Completed Universit y of Vaccine (3+ yrs) 00:00:00 [facility] Influenza Virus 2012-06-18 Completed Universit y of Vaccine (3+ yrs) 00:00:00 [facility] Influenza Virus 2012-06-18 Completed Universit y of Vaccine (3+ yrs) 00:00:00 [facility] Influenza Virus 2012-06-18 Completed Universit y of Vaccine (3+ yrs) 00:00:00 [facility] Influenza Virus 2012-06-18 Completed Universit y of Vaccine (3+ yrs) 00:00:00 [facility] Influenza Virus 2012-06-18 Completed Universit y of Vaccine (3+ yrs) 00:00:00 [facility] Influenza Virus 2012-06-18 Completed [facility] Vaccine (3+ yrs) 00:00:00 [facility] Influenza Virus 2012-06-18 Completed [facility] Vaccine (3+ yrs) 00:00:00 [facility] Influenza Virus 2012-06-18 Completed [facility] Vaccine (3+ yrs) 00:00:00 [facility] Influenza Virus 2012-06-18 Completed [facility] Vaccine (3+ yrs) 00:00:00 [facility] Influenza Virus 2012-06-18 Completed [facility] Vaccine (3+ yrs) 00:00:00 [facility] Influenza Virus 2012-06-18 Completed [facility] Vaccine (3+ yrs) 00:00:00 [facility] Influenza Virus 2012-06-18 Completed [facility] Vaccine (3+ yrs) 00:00:00 [facility] Influenza Virus 2012-06-18 Completed [facility] Vaccine (3+ yrs) 00:00:00 [facility] Influenza, Seasonal, 2012-06-18 Completed [place] ey Seybold Injectable 00:00:00 Influenza, Seasonal, 2012-06-18 Completed [place] [facility] Seybold Injectable 00:00:00 TDAP 2011-03-22 Completed [facility] 00:00:00 [facility] TDAP 2011-03-22 Completed [facility] 00:00:00 [facility] TDAP 2011-03-22 Completed [facility] 00:00:00 [facility] TDAP 2011-03-22 Completed [facility] 00:00:00 [facility] TDAP 2011-03-22 Completed [facility] 00:00:00 [facility] TDAP 2011-03-22 Completed [facility] 00:00:00 [facility] TDAP 2011-03-22 Completed [facility] 00:00:00 [facility] TDAP 2011-03-22 Completed [facility] 00:00:00 [facility] TDAP 2011-03-22 Completed [facility] 00:00:00 [facility] TDAP 2011-03-22 Completed [facility] 00:00:00 [facility] TDAP 2011-03-22 Completed [facility] 00:00:00 [facility] TDAP 2011-03-22 Completed [facility] 00:00:00 [facility] TDAP 2011-03-22 Completed [facility] 00:00:00 [facility] TDAP 2011-03-22 Completed [facility] 00:00:00 [facility] Tdap- (Boostrix, 2011-03-22 Completed Mallika S eybold Adacel) 00:00:00 Tdap- (Boostrix, 2011-03-22 Completed Mallika S eybold Adacel) 00:00:00 HEPATITIS A 2009-05-31 Completed [facility] 00:00:00 [facility] HPV 2009-05-31 Completed [facility] 00:00:00 [facility] Meningococcal 2009-05-31 Completed [facility] Polysaccharide 00:00:00 [place] [facility] (groups A, C, Y and Branc h W-135) conjugate vaccine (MCV4P) HEPATITIS A 2009-05-31 Completed [facility] 00:00:00 [facility] HPV 2009-05-31 Completed [facility] 00:00:00 [facility] Meningococcal 2009-05-31 Completed [facility] Polysaccharide 00:00:00 [place] [facility] (groups A, C, Y and Branc h W-135) conjugate vaccine (MCV4P) HEPATITIS A 2009-05-31 Completed [facility] 00:00:00 [facility] HPV 2009-05-31 Completed [facility] 00:00:00 [facility] Meningococcal 2009-05-31 Completed [facility] Polysaccharide 00:00:00 [place] [facility] (groups A, C, Y and Branc h W-135) conjugate vaccine (MCV4P) HEPATITIS A 2009-05-31 Completed [facility] 00:00:00 [facility] HPV 2009-05-31 Completed [facility] 00:00:00 [facility] Meningococcal 2009-05-31 Completed [facility] Polysaccharide 00:00:00 [place] [facility] (groups A, C, Y and Branc h W-135) conjugate vaccine (MCV4P) HEPATITIS A 2009-05-31 Completed [facility] 00:00:00 [facility] HPV 2009-05-31 Completed [facility] 00:00:00 [facility] Meningococcal 2009-05-31 Completed [facility] Polysaccharide 00:00:00 [place] [facility] (groups A, C, Y and Branc h W-135) conjugate vaccine (MCV4P) HEPATITIS A 2009-05-31 Completed [facility] 00:00:00 [facility] HPV 2009-05-31 Completed [facility] 00:00:00 [facility] Meningococcal 2009-05-31 Completed [facility] Polysaccharide 00:00:00 [place] [facility] (groups A, C, Y and Branc h W-135) conjugate vaccine (MCV4P) HEPATITIS A 2009-05-31 Completed [facility] 00:00:00 [facility] HPV 2009-05-31 Completed [facility] 00:00:00 [facility] Meningococcal 2009-05-31 Completed [facility] Polysaccharide 00:00:00 [place] [facility] (groups A, C, Y and Branc h W-135) conjugate vaccine (MCV4P) HEPATITIS A 2009-05-31 Completed [facility] 00:00:00 [facility] HPV 2009-05-31 Completed [facility] 00:00:00 [facility] Meningococcal 2009-05-31 Completed [facility] Polysaccharide 00:00:00 [place] [facility] (groups A, C, Y and Branc h W-135) conjugate vaccine (MCV4P) HEPATITIS A 2009-05-31 Completed [facility] 00:00:00 [facility] HPV 2009-05-31 Completed [facility] 00:00:00 [facility] Meningococcal 2009-05-31 Completed [facility] Polysaccharide 00:00:00 [place] [facility] (groups A, C, Y and Branc h W-135) conjugate vaccine (MCV4P) HEPATITIS A 2009-05-31 Completed [facility] 00:00:00 [facility] HPV 2009-05-31 Completed [facility] 00:00:00 [facility] Meningococcal 2009-05-31 Completed [facility] Polysaccharide 00:00:00 [place] [facility] (groups A, C, Y and Branc h W-135) conjugate vaccine (MCV4P) HEPATITIS A 2009-05-31 Completed [facility] 00:00:00 [facility] HPV 2009-05-31 Completed [facility] 00:00:00 [facility] Meningococcal 2009-05-31 Completed [facility] Polysaccharide 00:00:00 [place] [facility] (groups A, C, Y and Branc h W-135) conjugate vaccine (MCV4P) HEPATITIS A 2009-05-31 Completed [facility] 00:00:00 [facility] HPV 2009-05-31 Completed [facility] 00:00:00 [facility] Meningococcal 2009-05-31 Completed [facility] Polysaccharide 00:00:00 [place] [facility] (groups A, C, Y and Branc h W-135) conjugate vaccine (MCV4P) HEPATITIS A 2009-05-31 Completed [facility] 00:00:00 [facility] HPV 2009-05-31 Completed [facility] 00:00:00 [facility] Meningococcal 2009-05-31 Completed [facility] Polysaccharide 00:00:00 [place] [facility] (groups A, C, Y and Branc h W-135) conjugate vaccine (MCV4P) HEPATITIS A 2009-05-31 Completed [facility] 00:00:00 [facility] HPV 2009-05-31 Completed [facility] 00:00:00 [facility] Meningococcal 2009-05-31 Completed [facility] Polysaccharide 00:00:00 [place] [facility] (groups A, C, Y and Branc h W-135) conjugate vaccine (MCV4P) HEPATITIS A- 2009-05-31 Completed Mallika Floro ld PEDI/ADOL 00:00:00 HPV 4 (Human 2009-05-31 Completed Mallika Floro ld Papillomavirus) 00:00:00 Meningococcal 2009-05-31 Completed Mallika Ray old Vaccine- 00:00:00 Conjugate(Menactra) HEPATITIS A- 2009-05-31 Completed Mallika Seybo ld PEDI/ADOL 00:00:00 HPV 4 (Human 2009-05-31 Completed Mallika Seybo ld Papillomavirus) 00:00:00 Meningococcal 2009-05-31 Completed Mlalika Seyb old Vaccine- 00:00:00 Conjugate(Menactra) HEPATITIS A 2007-12-01 Completed [facility] 00:00:00 [facility] HEPATITIS A 2007-12-01 Completed [facility] 00:00:00 [facility] HEPATITIS A 2007-12-01 Completed [facility] 00:00:00 [facility] HEPATITIS A 2007-12-01 Completed [facility] 00:00:00 [facility] HEPATITIS A 2007-12-01 Completed [facility] 00:00:00 [facility] HEPATITIS A 2007-12-01 Completed [facility] 00:00:00 [facility] HEPATITIS A 2007-12-01 Completed [facility] 00:00:00 [facility] HEPATITIS A 2007-12-01 Completed [facility] 00:00:00 [facility] HEPATITIS A 2007-12-01 Completed [facility] 00:00:00 [facility] HEPATITIS A 2007-12-01 Completed [facility] 00:00:00 [facility] HEPATITIS A 2007-12-01 Completed [facility] 00:00:00 [facility] HEPATITIS A 2007-12-01 Completed [facility] 00:00:00 [facility] HEPATITIS A 2007-12-01 Completed [facility] 00:00:00 [facility] HEPATITIS A 2007-12-01 Completed [facility] 00:00:00 [facility] HEPATITIS A- 2007-12-01 Completed Mallika Stack ld PEDI/ADOL 00:00:00 HEPATITIS A- 2007-12-01 Completed Mallika Stack ld PEDI/ADOL 00:00:00 TDAP 2006-07-15 Completed [facility] 00:00:00 [facility] Varicella 2006-07-15 Completed [facility] of (varivax)(chicken 00:00:00 [place] [facility]ox[facility] AP 2006-07-15 Completed [facility] 00:00:00 [facility] Varicella 2006-07-15 Completed [facility] (varivax)(chicken 00:00:00 [place] [facility] TDAP 2006-07-15 Completed [facility] 00:00:00 [facility] Varicella 2006-07-15 Completed [facility] (varivax)(chicken 00:00:00 [place] [facility] TDAP 2006-07-15 Completed [facility] 00:00:00 [facility] Varicella 2006-07-15 Completed [facility] (varivax)(chicken 00:00:00 [place] [facility] TDAP 2006-07-15 Completed [facility] 00:00:00 [facility] Varicella 2006-07-15 Completed [facility] (varivax)(chicken 00:00:00 [place] [facility] TDAP 2006-07-15 Completed [facility] 00:00:00 [facility] Varicella 2006-07-15 Completed [facility] (varivax)(chicken 00:00:00 [place] [facility] TDAP 2006-07-15 Completed [facility] 00:00:00 [facility] Varicella 2006-07-15 Completed [facility] (varivax)(chicken 00:00:00 [place] [facility] TDAP 2006-07-15 Completed [facility] 00:00:00 [facility] Varicella 2006-07-15 Completed [facility] (varivax)(chicken 00:00:00 [place] [facility] TDAP 2006-07-15 Completed [facility] 00:00:00 [facility] Varicella 2006-07-15 Completed [facility] (varivax)(chicken 00:00:00 [place] [facility]ox[facility] TDAP 2006-07-15 Completed [facility] 00:00:00 [facility] Varicella 2006-07-15 Completed [facility] (varivax)(chicken 00:00:00 [place] [facility]ox[facility] TDAP 2006-07-15 Completed [facility] 00:00:00 [facility] Varicella 2006-07-15 Completed [facility] (varivax)(chicken 00:00:00 [place] [facility] pox[facility] TDAP 2006-07-15 Completed [facility] 00:00:00 [facility] Varicella 2006-07-15 Completed [facility] (varivax)(chicken 00:00:00 [place] [facility]ox[facility] TDAP 2006-07-15 Completed [facility] 00:00:00 [facility] Varicella 2006-07-15 Completed [facility] (varivax)(chicken 00:00:00 [place] [facility]ox[facility] TDAP 2006-07-15 Completed [facility] 00:00:00 [facility] Varicella 2006-07-15 Completed [facility] (varivax)(chicken 00:00:00 [place] [facility] Varicella Vaccine 2006-07-15 Completed Mallika Garcia 00:00:00 DTaP Unspecified 2006-07-15 Completed Mallika haq 00:00:00 Varicella Vaccine 2006-07-15 Completed Mallika Garcia 00:00:00 DTaP Unspecified 2006-07-15 Completed Mallika haq 00:00:00 TDAP 2003-11-08 Completed [facility] 00:00:00 [facility] IPV 2003-11-08 Completed [facility] 00:00:00 [facility] TDAP 2003-11-08 Completed [facility] 00:00:00 [facility] IPV 2003-11-08 Completed [facility] 00:00:00 [facility] TDAP 2003-11-08 Completed [facility] 00:00:00 [facility] IPV 2003-11-08 Completed [facility] 00:00:00 [facility] TDAP 2003-11-08 Completed [facility] 00:00:00 [facility] IPV 2003-11-08 Completed [facility] 00:00:00 [facility] TDAP 2003-11-08 Completed [facility] 00:00:00 [facility] IPV 2003-11-08 Completed [facility] 00:00:00 [facility] TDAP 2003-11-08 Completed [facility] 00:00:00 [facility] IPV 2003-11-08 Completed [facility] 00:00:00 [facility] TDAP 2003-11-08 Completed [facility] 00:00:00 [facility] IPV 2003-11-08 Completed [facility] 00:00:00 [facility] TDAP 2003-11-08 Completed [facility] 00:00:00 [facility] IPV 2003-11-08 Completed [facility] 00:00:00 [facility] TDAP 2003-11-08 Completed [facility] 00:00:00 [facility] IPV 2003-11-08 Completed [facility] 00:00:00 [facility] TDAP 2003-11-08 Completed [facility] 00:00:00 [facility] IPV 2003-11-08 Completed [facility] 00:00:00 [facility] TDAP 2003-11-08 Completed [facility] 00:00:00 [facility] IPV 2003-11-08 Completed [facility] 00:00:00 [facility] TDAP 2003-11-08 Completed [facility] 00:00:00 [facility] IPV 2003-11-08 Completed [facility] 00:00:00 [facility] TDAP 2003-11-08 Completed [facility] 00:00:00 [facility] IPV 2003-11-08 Completed [facility] 00:00:00 [facility] TDAP 2003-11-08 Completed [facility] 00:00:00 [facility] IPV 2003-11-08 Completed [facility] 00:00:00 [facility] IPV- Inactivated 2003-11-08 Completed Mallika Roberto eybold Polio Vaccine 00:00:00 DTaP Unspecified 2003-11-08 Completed Mallika Roberto eybold 00:00:00 IPV- Inactivated 2003-11-08 Completed Mallika Roberto eybold Polio Vaccine 00:00:00 DTaP Unspecified 2003-11-08 Completed Mallika Roberto eybold 00:00:00 TDAP 2001-11-26 Completed [facility] 00:00:00 [facility] Hep B, Adol or Pedi 2001-11-26 Completed Unive rsity of Dosage 00:00:00 [facility] IPV 2001-11-26 Completed [facility] 00:00:00 [facility] MMR 2001-11-26 Completed [facility] 00:00:00 [facility] TDAP 2001-11-26 Completed [facility] 00:00:00 [facility] Hep B, Adol or Pedi 2001-11-26 Completed Unive rsity of Dosage 00:00:00 [facility] IPV 2001-11-26 Completed [facility] 00:00:00 [facility] MMR 2001-11-26 Completed [facility] 00:00:00 [facility] TDAP 2001-11-26 Completed [facility] 00:00:00 [facility] Hep B, Adol or Pedi 2001-11-26 Completed Unive rsity of Dosage 00:00:00 [facility] IPV 2001-11-26 Completed [facility] 00:00:00 [facility] MMR 2001-11-26 Completed [facility] 00:00:00 [facility] TDAP 2001-11-26 Completed [facility] 00:00:00 [facility] Hep B, Adol or Pedi 2001-11-26 Completed Unive rsity of Dosage 00:00:00 [facility] IPV 2001-11-26 Completed [facility] 00:00:00 [facility] MMR 2001-11-26 Completed [facility] 00:00:00 [facility] TDAP 2001-11-26 Completed [facility] 00:00:00 [facility] Hep B, Adol or Pedi 2001-11-26 Completed Unive rsity of Dosage 00:00:00 [facility] IPV 2001-11-26 Completed [facility] 00:00:00 [facility] MMR 2001-11-26 Completed [facility] 00:00:00 [facility] TDAP 2001-11-26 Completed [facility] 00:00:00 [facility] Hep B, Adol or Pedi 2001-11-26 Completed Unive rsity of Dosage 00:00:00 [facility] IPV 2001-11-26 Completed [facility] 00:00:00 [facility] MMR 2001-11-26 Completed [facility] 00:00:00 [facility] TDAP 2001-11-26 Completed [facility] 00:00:00 [facility] Hep B, Adol or Pedi 2001-11-26 Completed Unive rsity of Dosage 00:00:00 [facility] IPV 2001-11-26 Completed [facility] 00:00:00 [facility] MMR 2001-11-26 Completed [facility] 00:00:00 [facility] TDAP 2001-11-26 Completed [facility] 00:00:00 [facility] Hep B, Adol or Pedi 2001-11-26 Completed Unive rsity of Dosage 00:00:00 [facility] IPV 2001-11-26 Completed [facility] 00:00:00 [facility] MMR 2001-11-26 Completed [facility] 00:00:00 [facility] TDAP 2001-11-26 Completed [facility] 00:00:00 [facility] Hep B, Adol or Pedi 2001-11-26 Completed Unive rsity of Dosage 00:00:00 [facility] IPV 2001-11-26 Completed [facility] 00:00:00 [facility] MMR 2001-11-26 Completed [facility] 00:00:00 [facility] TDAP 2001-11-26 Completed [facility] 00:00:00 [facility] Hep B, Adol or Pedi 2001-11-26 Completed Unive rsity of Dosage 00:00:00 [facility] IPV 2001-11-26 Completed [facility] 00:00:00 [facility] MMR 2001-11-26 Completed [facility] 00:00:00 [facility] TDAP 2001-11-26 Completed [facility] 00:00:00 [facility] Hep B, Adol or Pedi 2001-11-26 Completed Unive rsity of Dosage 00:00:00 [facility] IPV 2001-11-26 Completed [facility] 00:00:00 [facility] MMR 2001-11-26 Completed [facility] 00:00:00 [facility] TDAP 2001-11-26 Completed [facility] 00:00:00 [facility] Hep B, Adol or Pedi 2001-11-26 Completed [facility]ive rsity of Dosage 00:00:00 [facility] IPV 2001-11-26 Completed [facility] 00:00:00 [facility] MMR 2001-11-26 Completed [facility] 00:00:00 [facility] TDAP 2001-11-26 Completed [facility] 00:00:00 [facility] Hep B, Adol or Pedi 2001-11-26 Completed Unive rsity of Dosage 00:00:00 [facility] IPV 2001-11-26 Completed [facility] 00:00:00 [facility] MMR 2001-11-26 Completed [facility] 00:00:00 [facility] TDAP 2001-11-26 Completed [facility] 00:00:00 [facility] Hep B, Adol or Pedi 2001-11-26 Completed Unive rsity of Dosage 00:00:00 [facility] IPV 2001-11-26 Completed [facility] 00:00:00 [facility] MMR 2001-11-26 Completed [facility] 00:00:00 [facility] IPV- Inactivated 2001-11-26 Completed Mallika Roberto eybold Polio Vaccine 00:00:00 DTaP Unspecified 2001-11-26 Completed Mallika S eybold 00:00:00 Hepatitis B, 2001-11-26 Completed Mallika Rayo ld Adolescent Or 00:00:00 Pediatric MMR- Measles, Mumps, 2001-11-26 Completed [place] mcintyre Seybold Rubella 00:00:00 IPV- Inactivated 2001-11-26 Completed Mallika S eybold Polio Vaccine 00:00:00 DTaP Unspecified 2001-11-26 Completed Mallika Roberto eybold 00:00:00 Hepatitis B, 2001-11-26 Completed Mallika Stack ld Adolescent Or 00:00:00 Pediatric MMR- Measles, Mumps, 2001-11-26 Completed [place] mcintyre Seybold Rubella 00:00:00 Hepatitis B, 1999-03-07 Completed Mallika Rayo ld Adolescent Or 00:00:00 Pediatric HIB- Haemophilus 1999-03-07 Completed Mallika mcintyrebold Influenzae Type B 00:00:00 MMR- Measles, Mumps, 1999-03-07 Completed [place] mcintyre Seybold Rubella 00:00:00 OPV- Oral Polio 1999-03-07 Completed Mallika Anderson ybold Vaccine 00:00:00 Varicella Vaccine 1999-03-07 Completed Mallika Garcia 00:00:00 DTaP Unspecified 1999-03-07 Completed Mallika haq 00:00:00 Hepatitis B, 1999-03-07 Completed Mallika Stack ld Adolescent Or 00:00:00 Pediatric HIB- Haemophilus 1999-03-07 Completed Mallika haq Influenzae Type B 00:00:00 MMR- Measles, Mumps, 1999-03-07 Completed Selma Garcia Rubella 00:00:00 TDAP 1999-03-07 Completed [facility] 00:00:00 [facility] Hep B, Adol or Pedi 1999-03-07 Completed Unive rsity of Dosage 00:00:00 [facility] Heamophilus Influenza 1999-03-07 Completed Uni versity of B 00:00:00 [facility] MMR 1999-03-07 Completed [facility] 00:00:00 [facility] Polio (IPV/OPV) 1999-03-07 Completed [facility] 00:00:00 [facility] Varicella 1999-03-07 Completed [facility] (varivax)(chicken 00:00:00 [place] [facility] TDAP 1999-03-07 Completed [facility] 00:00:00 [facility] Hep B, Adol or Pedi 1999-03-07 Completed Unive rsity of Dosage 00:00:00 [facility] Heamophilus Influenza 1999-03-07 Completed Uni versity of B 00:00:00 [facility] MMR 1999-03-07 Completed [facility] 00:00:00 [facility] Polio (IPV/OPV) 1999-03-07 Completed [facility] 00:00:00 [facility] Varicella 1999-03-07 Completed [facility] (varivax)(chicken 00:00:00 [place] [facility] pox) [facility] TDAP 1999-03-07 Completed [facility] 00:00:00 [facility] Hep B, Adol or Pedi 1999-03-07 Completed Unive rsity of Dosage 00:00:00 [facility] Heamophilus Influenza 1999-03-07 Completed Uni versity of B 00:00:00 [facility] MMR 1999-03-07 Completed [facility] 00:00:00 [facility] Polio (IPV/OPV) 1999-03-07 Completed [facility] 00:00:00 [facility] Varicella 1999-03-07 Completed [facility] (varivax)(chicken 00:00:00 [place] [facility] pox[facility] TDAP 1999-03-07 Completed [facility] 00:00:00 [facility] Hep B, Adol or Pedi 1999-03-07 Completed Unive rsity of Dosage 00:00:00 [facility] Heamophilus Influenza 1999-03-07 Completed Uni versity of B 00:00:00 [facility] MMR 1999-03-07 Completed [facility] 00:00:00 [facility] Polio (IPV/OPV) 1999-03-07 Completed [facility] 00:00:00 [facility] Varicella 1999-03-07 Completed [facility] (varivax)(chicken 00:00:00 [place] [facility] pox) [facility] TDAP 1999-03-07 Completed [facility] 00:00:00 [facility] Hep B, Adol or Pedi 1999-03-07 Completed Unive rsity of Dosage 00:00:00 [facility] Heamophilus Influenza 1999-03-07 Completed Uni versity of B 00:00:00 [facility] MMR 1999-03-07 Completed [facility] 00:00:00 [facility] Polio (IPV/OPV) 1999-03-07 Completed [facility] 00:00:00 [facility] Varicella 1999-03-07 Completed [facility] (varivax)(chicken 00:00:00 [place] [facility]ox[facility] AP 1999-03-07 Completed [facility] 00:00:00 [facility] Hep B, Adol or Pedi 1999-03-07 Completed Unive rsity of Dosage 00:00:00 [facility] Heamophilus Influenza 1999-03-07 Completed Uni versity of B 00:00:00 [facility] MMR 1999-03-07 Completed [facility] 00:00:00 [facility] Polio (IPV/OPV) 1999-03-07 Completed [facility] 00:00:00 [facility] Varicella 1999-03-07 Completed [facility] (varivax)(chicken 00:00:00 [place] [facility] TDAP 1999-03-07 Completed [facility] of 00:00:00 [facility] Hep B, Adol or Pedi 1999-03-07 Completed Unive rsity of Dosage 00:00:00 [facility] Heamophilus Influenza 1999-03-07 Completed Uni versity of B 00:00:00 [facility] MMR 1999-03-07 Completed [facility] 00:00:00 [facility] Polio (IPV/OPV) 1999-03-07 Completed Universit y of 00:00:00 [facility] Varicella 1999-03-07 Completed [facility] (varivax)(chicken 00:00:00 [place] [facility] TDAP 1999-03-07 Completed [facility] 00:00:00 [facility] Hep B, Adol or Pedi 1999-03-07 Completed Unive rsity of Dosage 00:00:00 [facility] Heamophilus Influenza 1999-03-07 Completed Uni versity of B 00:00:00 [facility] MMR 1999-03-07 Completed [facility] of 00:00:00 [facility] Polio (IPV/OPV) 1999-03-07 Completed Universit y of 00:00:00 [facility] Varicella 1999-03-07 Completed [facility] (varivax)(chicken 00:00:00 [place] [facility] TDAP 1999-03-07 Completed [facility] 00:00:00 [facility] Hep B, Adol or Pedi 1999-03-07 Completed Unive rsity of Dosage 00:00:00 [facility] Heamophilus Influenza 1999-03-07 Completed Uni versity of B 00:00:00 [facility] MMR 1999-03-07 Completed [facility] of 00:00:00 [facility] Polio (IPV/OPV) 1999-03-07 Completed Universit y of 00:00:00 [facility] Varicella 1999-03-07 Completed [facility] (varivax)(chicken 00:00:00 [place] [facility]ox[facility] TDAP 1999-03-07 Completed [facility] of 00:00:00 [facility] Hep B, Adol or Pedi 1999-03-07 Completed Unive rsity of Dosage 00:00:00 [facility] Heamophilus Influenza 1999-03-07 Completed Uni versity of B 00:00:00 [facility] MMR 1999-03-07 Completed [facility] of 00:00:00 [facility] Polio (IPV/OPV) 1999-03-07 Completed Universit y of 00:00:00 [facility] Varicella 1999-03-07 Completed [facility] (varivax)(chicken 00:00:00 [place] [facility] TDAP 1999-03-07 Completed [facility] 00:00:00 [facility] Hep B, Adol or Pedi 1999-03-07 Completed Unive rsity of Dosage 00:00:00 [facility] Heamophilus Influenza 1999-03-07 Completed Uni versity of B 00:00:00 [facility] MMR 1999-03-07 Completed [facility] of 00:00:00 [facility] Polio (IPV/OPV) 1999-03-07 Completed Universit y of 00:00:00 [facility] Varicella 1999-03-07 Completed [facility] (varivax)(chicken 00:00:00 [place] [facility] TDAP 1999-03-07 Completed [facility] of 00:00:00 [facility] Hep B, Adol or Pedi 1999-03-07 Completed Unive rsity of Dosage 00:00:00 [facility] Heamophilus Influenza 1999-03-07 Completed Uni versity of B 00:00:00 [facility] MMR 1999-03-07 Completed [facility] of 00:00:00 [facility] Polio (IPV/OPV) 1999-03-07 Completed Universit y of 00:00:00 [facility] Varicella 1999-03-07 Completed [facility] (varivax)(chicken 00:00:00 [place] [facility] TDAP 1999-03-07 Completed [facility] of 00:00:00 [facility] Hep B, Adol or Pedi 1999-03-07 Completed Unive rsity of Dosage 00:00:00 [facility] Heamophilus Influenza 1999-03-07 Completed Uni versity of B 00:00:00 [facility] MMR 1999-03-07 Completed [facility] of 00:00:00 [facility] Polio (IPV/OPV) 1999-03-07 Completed Universit y of 00:00:00 [facility] Varicella 1999-03-07 Completed [facility] (varivax)(chicken 00:00:00 [place] [facility] TDAP 1999-03-07 Completed [facility] of 00:00:00 [facility] Hep B, Adol or Pedi 1999-03-07 Completed Unive rsity of Dosage 00:00:00 [facility] Heamophilus Influenza 1999-03-07 Completed Uni versity of B 00:00:00 [facility] MMR 1999-03-07 Completed [facility] of 00:00:00 [facility] Polio (IPV/OPV) 1999-03-07 Completed Universit y of 00:00:00 [facility] Varicella 1999-03-07 Completed University of (varivax)(chicken 00:00:00 [facility] edical pox) [place] OPV- Oral Polio 1999-03-07 Completed Mallika Anderson ybold Vaccine 00:00:00 Varicella Vaccine 1999-03-07 Completed Mallika Seybold 00:00:00 DTaP Unspecified 1999-03-07 Completed Mallika S eybold 00:00:00 IPV- Inactivated 1998-04-21 Completed Mallika S eybold Polio Vaccine 00:00:00 DTP- 1998-04-21 Completed Mallika Andersonybold Diphtheria,Tetanus,Pe 00:00:00 rtussis Hib, unspecified 1998-04-21 Completed Mallika S eybold formulation 00:00:00 IPV- Inactivated 1998-04-21 Completed Mallika S eybold Polio Vaccine 00:00:00 DTP- 1998-04-21 Completed Mallika Rayold Diphtheria,Tetanus,Pe 00:00:00 rtussis Hib, unspecified 1998-04-21 Completed Mallika S eybold formulation 00:00:00 HIB 3 Dose Schedule 1998-04-21 Completed Unive rsity of 00:00:00 [facility] DTP 1998-04-21 Completed [facility] of 00:00:00 [facility] IPV 1998-04-21 Completed [facility] 00:00:00 [facility] HIB 3 Dose Schedule 1998-04-21 Completed Unive rsity of 00:00:00 [facility] DTP 1998-04-21 Completed [facility] 00:00:00 [facility] IPV 1998-04-21 Completed [facility] 00:00:00 [facility] HIB 3 Dose Schedule 1998-04-21 Completed Unive rsity of 00:00:00 [facility] DTP 1998-04-21 Completed [facility] of 00:00:00 [facility] IPV 1998-04-21 Completed [facility] of 00:00:00 [facility] HIB 3 Dose Schedule 1998-04-21 Completed Unive rsity of 00:00:00 [facility] DTP 1998-04-21 Completed [facility] 00:00:00 [facility] IPV 1998-04-21 Completed [facility] 00:00:00 [facility] HIB 3 Dose Schedule 1998-04-21 Completed Unive rsity of 00:00:00 [facility] DTP 1998-04-21 Completed [facility] 00:00:00 [facility] IPV 1998-04-21 Completed [facility] 00:00:00 [facility] HIB 3 Dose Schedule 1998-04-21 Completed Unive rsity of 00:00:00 [facility] DTP 1998-04-21 Completed [facility] 00:00:00 [facility] IPV 1998-04-21 Completed [facility] 00:00:00 [facility] HIB 3 Dose Schedule 1998-04-21 Completed Unive rsity of 00:00:00 [facility] DTP 1998-04-21 Completed [facility] 00:00:00 [facility] IPV 1998-04-21 Completed [facility] 00:00:00 [facility] HIB 3 Dose Schedule 1998-04-21 Completed Unive rsity of 00:00:00 [facility] DTP 1998-04-21 Completed [facility] 00:00:00 [facility] IPV 1998-04-21 Completed [facility] 00:00:00 [facility] HIB 3 Dose Schedule 1998-04-21 Completed Unive rsity of 00:00:00 [facility] DTP 1998-04-21 Completed [facility] 00:00:00 [facility] IPV 1998-04-21 Completed [facility] 00:00:00 [facility] HIB 3 Dose Schedule 1998-04-21 Completed Unive rsity of 00:00:00 [facility] DTP 1998-04-21 Completed [facility] 00:00:00 [facility] IPV 1998-04-21 Completed [facility] 00:00:00 [facility] HIB 3 Dose Schedule 1998-04-21 Completed Unive rsity of 00:00:00 [facility] DTP 1998-04-21 Completed [facility] 00:00:00 [facility] IPV 1998-04-21 Completed [facility] 00:00:00 [facility] HIB 3 Dose Schedule 1998-04-21 Completed Unive rsity of 00:00:00 [facility] DTP 1998-04-21 Completed [facility] 00:00:00 [facility] IPV 1998-04-21 Completed [facility] 00:00:00 [facility] HIB 3 Dose Schedule 1998-04-21 Completed Unive rsity of 00:00:00 [facility] DTP 1998-04-21 Completed [facility] 00:00:00 [facility] IPV 1998-04-21 Completed [facility] 00:00:00 [facility] HIB 3 Dose Schedule 1998-04-21 Completed Unive rsity of 00:00:00 [facility] DTP 1998-04-21 Completed University of 00:00:00 [facility] IPV 1998-04-21 Completed [facility] of 00:00:00 [facility] DTaP Unspecified 1998-01-27 Completed Mallika S eybold 00:00:00 Hib, unspecified 1998-01-27 Completed Mallika S eybold formulation 00:00:00 IPV- Inactivated 1998-01-27 Completed Mallika S eybold Polio Vaccine 00:00:00 DTaP Unspecified 1998-01-27 Completed Mallika S eybold 00:00:00 Hib, unspecified 1998-01-27 Completed Mallika S eybold formulation 00:00:00 IPV- Inactivated 1998-01-27 Completed Mallika S eybold Polio Vaccine 00:00:00 HIB 3 Dose Schedule 1998-01-27 Completed Unive rsity of 00:00:00 [facility] TDAP 1998-01-27 Completed [facility] 00:00:00 [facility] IPV 1998-01-27 Completed [facility] 00:00:00 [facility] HIB 3 Dose Schedule 1998-01-27 Completed Unive rsity of 00:00:00 [facility] TDAP 1998-01-27 Completed [facility] 00:00:00 [facility] IPV 1998-01-27 Completed [facility] of 00:00:00 [facility] HIB 3 Dose Schedule 1998-01-27 Completed Unive rsity of 00:00:00 [facility] TDAP 1998-01-27 Completed [facility] 00:00:00 [place] [facility] [place] IPV 1998-01-27 Completed [facility] of 00:00:00 [facility] HIB 3 Dose Schedule 1998-01-27 Completed Unive rsity of 00:00:00 [facility] TDAP 1998-01-27 Completed [facility] of 00:00:00 [facility] IPV 1998-01-27 Completed [facility] of 00:00:00 [facility] HIB 3 Dose Schedule 1998-01-27 Completed Unive rsity of 00:00:00 [facility] TDAP 1998-01-27 Completed [facility] of 00:00:00 [facility] IPV 1998-01-27 Completed [facility] 00:00:00 [facility] HIB 3 Dose Schedule 1998-01-27 Completed Unive rsity of 00:00:00 [facility] TDAP 1998-01-27 Completed [facility] 00:00:00 [facility] IPV 1998-01-27 Completed [facility] 00:00:00 [facility] HIB 3 Dose Schedule 1998-01-27 Completed Unive rsity of 00:00:00 [facility] TDAP 1998-01-27 Completed [facility] 00:00:00 [facility] IPV 1998-01-27 Completed [facility] 00:00:00 [facility] HIB 3 Dose Schedule 1998-01-27 Completed Unive rsity of 00:00:00 [facility] TDAP 1998-01-27 Completed [facility] 00:00:00 [facility] IPV 1998-01-27 Completed [facility] 00:00:00 [facility] HIB 3 Dose Schedule 1998-01-27 Completed Unive rsity of 00:00:00 [facility] TDAP 1998-01-27 Completed [facility] 00:00:00 [facility] IPV 1998-01-27 Completed [facility] 00:00:00 [facility] HIB 3 Dose Schedule 1998-01-27 Completed Unive rsity of 00:00:00 [facility] TDAP 1998-01-27 Completed [facility] 00:00:00 [facility] IPV 1998-01-27 Completed [facility] 00:00:00 [facility] HIB 3 Dose Schedule 1998-01-27 Completed Unive rsity of 00:00:00 [facility] TDAP 1998-01-27 Completed University [facility] 00:00:00 [facility] IPV 1998-01-27 Completed [facility] 00:00:00 [facility] HIB 3 Dose Schedule 1998-01-27 Completed Unive rsity of 00:00:00 [facility] TDAP 1998-01-27 Completed [facility] 00:00:00 [facility] IPV 1998-01-27 Completed [facility] 00:00:00 [facility] HIB 3 Dose Schedule 1998-01-27 Completed Unive rsity of 00:00:00 [facility] TDAP 1998-01-27 Completed [facility] 00:00:00 [facility] IPV 1998-01-27 Completed [facility] 00:00:00 [facility] HIB 3 Dose Schedule 1998-01-27 Completed Unive rsity of 00:00:00 [facility] TDAP 1998-01-27 Completed [facility] 00:00:00 [facility] IPV 1998-01-27 Completed [facility] 00:00:00 [facility] Hepatitis B, 1997 Completed Mallika nance Adolescent Or 00:00:00 Pediatric Hepatitis B, 1997 Completed Mallika nance Adolescent Or 00:00:00 Pediatric Hep B, Adol or Pedi 1997 Completed Unive rsity of Dosage 00:00:00 [facility] Hep B, Adol or Pedi 1997 Completed Unive rsity of Dosage 00:00:00 [facility] Hep B, Adol or Pedi 1997 Completed Unive rsity of Dosage 00:00:00 [facility] Hep B, Adol or Pedi 1997 Completed Unive rsity of Dosage 00:00:00 [facility] Hep B, Adol or Pedi 1997 Completed Unive rsity of Dosage 00:00:00 [facility] Hep B, Adol or Pedi 1997 Completed Unive rsity of Dosage 00:00:00 [facility] Hep B, Adol or Pedi 1997 Completed Unive rsity of Dosage 00:00:00 [facility] Hep B, Adol or Pedi 1997 Completed Unive rsity of Dosage 00:00:00 [facility] Hep B, Adol or Pedi 1997 Completed Unive rsity of Dosage 00:00:00 [facility] Hep B, Adol or Pedi 1997 Completed Unive rsity of Dosage 00:00:00 [facility] Hep B, Adol or Pedi 1997 Completed Unive rsity of Dosage 00:00:00 [facility] Hep B, Adol or Pedi 1997 Completed Unive rsity of Dosage 00:00:00 [facility] Hep B, Adol or Pedi 1997 Completed Unive rsity of Dosage 00:00:00 [facility] Hep B, Adol or Pedi 1997 Completed Unive rsity of Dosage 00:00:00 [facility] Hepatitis B, 1997 Completed Mallika nance Adolescent Or 00:00:00 Pediatric Hepatitis B, 1997 Completed Mallika Seybo ld Adolescent Or 00:00:00 Pediatric Hep B, Adol or Pedi 1997 Completed Unive rsity of Dosage 00:00:00 [facility] Hep B, Adol or Pedi 1997 Completed Unive rsity of Dosage 00:00:00 [facility] Hep B, Adol or Pedi 1997 Completed Unive rsity of Dosage 00:00:00 [facility] Hep B, Adol or Pedi 1997 Completed Unive rsity of Dosage 00:00:00 [facility] Hep B, Adol or Pedi 1997 Completed Unive rsity of Dosage 00:00:00 [facility] Hep B, Adol or Pedi 1997 Completed Unive rsity of Dosage 00:00:00 [facility] Hep B, Adol or Pedi 1997 Completed Unive rsity of Dosage 00:00:00 [facility] Hep B, Adol or Pedi 1997 Completed Unive rsity of Dosage 00:00:00 [facility] Hep B, Adol or Pedi 1997 Completed Unive rsity of Dosage 00:00:00 [facility] Hep B, Adol or Pedi 1997 Completed Unive rsity of Dosage 00:00:00 [facility] Hep B, Adol or Pedi 1997 Completed Unive rsity of Dosage 00:00:00 [facility] Hep B, Adol or Pedi 1997 Completed Unive rsity of Dosage 00:00:00 [facility] Hep B, Adol or Pedi 1997 Completed Unive rsity of Dosage 00:00:00 [facility] Hep B, Adol or Pedi 1997 Completed Unive rsity of Dosage 00:00:00 [facility] Vital Signs Vital Name Observation Time Observation Value Comments Source Systolic blood 2022-09-14 15:13:00 100 mm[Hg] Univer sity of pressure [facility] Diastolic blood 2022-09-14 15:13:00 66 mm[Hg] Unive rsity of pressure [facility] Heart rate 2022-09-14 15:13:00 76 /min [facility] Body temperature 2022-09-14 15:13:00 36.83 Anny [facility] Respiratory rate 2022-09-14 15:13:00 18 /min [facility] Body height 2022-09-14 15:13:00 165.1 cm [facility] Body weight 2022-09-14 15:13:00 61.236 kg [facility] BMI 2022-09-14 15:13:00 22.47 kg/m2 [facility] Systolic blood 2022-06-06 19:28:00 113 mm[Hg] Univer sity of pressure [facility] Diastolic blood 2022-06-06 19:28:00 76 mm[Hg] Unive rsity of pressure [facility] Heart rate 2022-06-06 19:28:00 88 /min [facility] Body temperature 2022-06-06 19:28:00 36.67 Anny [facility] Body height 2022-06-06 19:28:00 152.4 cm [facility] Body weight 2022-06-06 19:28:00 62.596 kg [facility] BMI 2022-06-06 19:28:00 26.95 kg/m2 [facility] Systolic blood 2022-05-21 19:28:00 116 mm[Hg] Univer sity of pressure [facility] Diastolic blood 2022-05-21 19:28:00 81 mm[Hg] Unive rsity of pressure [facility] Heart rate 2022-05-21 19:28:00 88 /min [facility] Body temperature 2022-05-21 19:28:00 36.56 Anny [facility] Respiratory rate 2022-05-21 19:28:00 16 /min [facility] Body height 2022-05-21 19:28:00 152.4 cm [facility] Body weight 2022-05-21 19:28:00 61.508 kg [facility] BMI 2022-05-21 19:28:00 26.48 kg/m2 [facility] Oxygen saturation in 2022-05-21 19:28:00 97 /min [facility] Arterial blood by [facility] Pulse oximetry Branch Systolic blood 2021-12-06 20:03:00 105 mm[Hg] Univer sity of pressure [facility] Diastolic blood 2021-12-06 20:03:00 71 mm[Hg] Unive rsity of pressure [facility] Heart rate 2021-12-06 20:03:00 72 /min [facility] Body temperature 2021-12-06 20:03:00 36.72 [facility] 2021-12-06 20:03:00 18 /min [facility] height 2021-12-06 20:03:00 157.5 cm [facility] Body weight 2021-12-06 20:03:00 57.698 kg [facility] BMI 2021-12-06 20:03:00 23.27 kg/m2 [facility] Systolic blood 2021-12-06 18:42:00 98 mm[Hg] Mallika Seybold pressure Diastolic blood 2021-12-06 18:42:00 62 mm[Hg] Kelse y Seybold pressure Heart rate 2021-12-06 18:42:00 83 /min Mallika mcintyrebold Body temperature 2021-12-06 18:42:00 36.56 Anny Selma ey Seybold Respiratory rate 2021-12-06 18:42:00 14 /min Selma mcintyre Seybold Body height 2021-12-06 18:42:00 165.1 cm Mallika mcintyrebolee ann Body weight 2021-12-06 18:42:00 58.06 kg Mallika S francisco javierbold BMI 2021-12-06 18:42:00 21.30 kg/m2 Mallika S francisco javierbold Systolic blood 2021-12-04 20:58:00 113 mm[Hg] Mallika Seybold pressure Diastolic blood 2021-12-04 20:58:00 74 mm[Hg] Kelse y Seybold pressure Heart rate 2021-12-04 20:58:00 83 /min Mallika S eybold Body temperature 2021-12-04 20:58:00 36.83 Anny Selma ey Seybold Respiratory rate 2021-12-04 20:58:00 14 /min Selma ey Seybold Body height 2021-12-04 20:58:00 165.1 cm Mallika Roberto eybold Body weight 2021-12-04 20:58:00 58.06 kg Mallika Roberto eybold BMI 2021-12-04 20:58:00 21.30 kg/m2 Mallika Roberto eybold Systolic blood 2021-10-16 20:21:00 110 mm[Hg] Mallika Seybold pressure Diastolic blood 2021-10-16 20:21:00 76 mm[Hg] Kelse y Seybold pressure Heart rate 2021-10-16 20:21:00 99 /min Mallika Roberto eybold Body temperature 2021-10-16 20:21:00 37.17 Anny Selma ey Seybold Respiratory rate 2021-10-16 20:21:00 16 /min Selma mcintyre Seybold Body height 2021-10-16 20:21:00 165.1 cm Mallika Roberto eybold Body weight 2021-10-16 20:21:00 58.06 kg Mallika mcintyrebold BMI 2021-10-16 20:21:00 21.30 kg/m2 Mallika mcintyrebold Systolic (mm Hg) 2022-01-02 18:10:00 Nahun monae All Diastolic (mm Hg) 2022-01-02 18:10:00 Mem [facility]rial All Heart Rate 2022-01-02 18:10:00 [facility] Respitory Rate 2022-01-02 18:10:00 [facility] Height 2022-01-02 18:10:00 163.83 cm [facility] Weight 2022-01-02 18:10:00 [facility] BMI Calculated 2022-01-02 18:10:00 Mem[facility] All Procedures Procedure Date / Time Performing Clinician Source Performed US PELVIS COMPLETE WITH 2022-05-31 22:45:00 Maris [facility] TRANSVAGINAL [facility] CBC WITH DIFF 2022-05-21 21:04:00 Maris [facility] GC & CHLAMYDIA 2022-05-21 20:10:00 Maris [facility] AMPLIFIED [facility] GALV ONLY - VAGINAL 2022-05-21 20:10:00 Ijeoma Pollock [facility] PATHOGENS BY NUCLEIC Medical [facility] ACID TESTING POCT TEST 2022-05-21 00:00:00 Ijeoma Pollock [facility] GARDASIL 9 (HPV 9V) 2021-12-06 20:31[facility] End Encounter Ad[facility] Attending Care Care Encounter Source Date/Time Date/Time Type Type Clinicians Facility Department ID 2022-09-14 2022-09-14 Outpatient R MARIS IJEOMA [facility] B [id number] Univers 09:00:00 09:25:35 IJEOMA POLLOCK manfred [facility] 2022-09-14 2022-09-14 Office Mrais [facility] [id number] Univers 09:00:00 09:25:35 Visit Ijeoma SABA [id number] it y of WOMEN'S [id number] [facility] [id number] [address] 2022-06-06 2022-06-06 Outpatient R MARIS IJEOMA [facility] B [id number] Univers 14:30:00 14:50:56 IJEOMA POLLOCK [facility] 2022-06-06 2022-06-06 [facility] [id number] Univers 14:30:00 14:50:56 Visit Ijeoma SABA [id number] it y of WOMEN'S [id number] [facility] [id number] [address] 2022-05-31 2022-05-31 Outpatient R IJEOMA POLLOCK [facility] B [id number] Univers 17:03:58 23:59:00 IJEOMA POLLOCK [facility] 2022-05-31 2022-05-31 [facility] [id number] Univers 17:00:00 23:59:00 Encounter Ijeoma MEJIAS [id number] [place] [id number] [facility] [address] [place] 2022-05-30 2022-05-30 Telephone [facility] [id number] Univers 00:00:00 00:00:00 Ijeoma MEJIAS [id number] [id number] [id number] Ia dical NAL [address] [facility] 2022-05-28 2022-05-28 [address] [facility] B [id number] Univers 00:00:00 00:00:00 IJEOMA POLLOCK [facility] 2022-05-23 2022-05-23 [address]patient [facility] B [id number] Univers 14:00:00 14:00:00 IJEOMA POLLOCK [facility] 2022-05-23 2022-05-23 Case [facility] [id number] Univers 00:00:00 00:00:00 Management Ijeoma SABA [id number] [id number] [id number] [address] 2022-05-23 2022-05-23 [facility] [id number] Univers 00:00:00 00:00:00 Ijeoma SABA [id number] [id number] [id number] [address] 2022-05-21 2022-05-21 [facility] 1.2.8 [id number] Univers 16:15:00 16:30:00 Visit Lucio Amaya [id number] [place] PROFESSIO [id number] Ia dical NAL 353 [facility] 2022-05-21 2022-05-21 Outpatient R IJEOMA POLLOCK [facility] B [id number] Univers 14:30:00 14:56:16 IJEOMA POLLOCK manfred [facility] 2022-05-21 2022-05-21 Office Maris MOJHONATHAN ROMO 1.2.840.114 [id number] Univers 14:30:00 14:56:16 Visit Ijeoma SABA 350.1.13.10 y of WOMEN'S 4.2.7.2.686 [facility] [id number] [place] [address] [place] 2022-05-09 2022-05-09 Outpatient R [facility] [id number] Univers 14:30:00 14:30:00 [facility] 2022-02-01 2022-02-01 Outpatient MHIE MHIE [id number] Memoria 15:15:00 15:15:00 01 l All 2022-01-25 2022-01-25 Ambulatory nullFlavo MNA [id number] Memoria 18:00:00 18:00:00 Pre-Reg r Neurology 01 l Cassidy Carrizales 2022-01-25 2022-01-25 Outpatient ELMER Maynard MISCHER [id number] 13:00:00 13:00:00 Karson Busch 2022-01-19 2022-01-19 Outpatient LAB90 MALLIKA LABOY [id number] [place] 17:15:00 17:15:00 Seybol d 2022-01-19 2022-01-19 Office Shaquille Ashby 1.2.840.114 [id number] [place] 16:30:00 17:00:00 Visit Jerri Jayant 350.1.13.13 Se ybkalpana 1.2.7.2.686 [id number] 2022-01-19 2022-01-19 Outpatient MALLIKA ASHBY [id number] [place] 13:30:00 13:30:00 JERRI Rayol d 2022-01-02 2022-01-03 Outpatient nullFlavo MNA [id number] Memoria 18:00:00 04:59:59 r Neurology 00 l Cassidy Carrizales 2022-01-02 2022-01-02 Outpatient JORGE MaynardROBYN JORGESCHVIMAL 012 [id number] 13:00:00 23:59:59 Karson Navid Busch 2022-01-02 2022-01-02 Outpatient MHIE RETAIE [id number] Memdalila 13:00:00 13:00:00 00 paty Carrizales 2021-12-18 2021-12-18 Outpatient MALLIKA ESCALERA [id number] Mallika 00:00:00 00:00:00 CARINE catalan 2021-12-15 2021-12-15 Telephone Maris [facility] 1.2.840.11 [id number] Univers 00:00:00 00:00:00 Ijeoma SABA 350.1.13.10 it y of PEDIATRIC 4.2.7.2.686 [facility] [id number] [address] 2021-12-14 2021-12-14 Outpatient MALLIKA ESCALERA [id number] [place] 00:00:00 00:00:00 CARINE catalan 2021-12-08 2021-12-08 Outpatient MALLIKA ESCALERA [id number] Mallika 00:00:00 00:00:00 CARINE catalan 2021-12-06 2021-12-06 Outpatient R IJEOMA [facility]LLOCK [facility] B [id number] Univers 14:30:00 15:26:30 IJEOMA POLLOCK [facility] 2021-12-06 2021-12-06 Outpatient R IJEOMA POLLOCK [facility] B [id number] Univers 14:30:00 15:26:30 IJEOMA POLLOCK [facility] 2021-12-06 2021-12-06 Office Maris [facility] 1.2.840.114 [id number] Univers 14:30:00 15:26:30 Visit Ijeoma SABA 350.1.13.10 it y of WOMEN'S 4.2.7.2.686 [facility] [id number] [address] 2021-12-06 2021-12-06 Outpatient LAB90 MALLIKA LABOY [id number] [place] 14:20:00 14:20:00 Seybol d 2021-12-06 2021-12-06 Office Shaquille Ashby 1.2.840.114 [id number] [place] 13:30:00 14:00:00 Visit Jerri Saba 350.1.13.13 Se ybold 1.2.7.2.686 [id number] 2021-12-06 2021-12-06 Orders Doctor EVE 1.2.840.[id number] [place] [address] 00:00:00 00:00:00 Only Unassigned, KORINA 350.1.13.10 ity of [place] [facility] 4.2.7.2.686 [place] [id number] [facility] sorin [address] 2021-12-05 2021-12-05 Outpatient MALLIKA ESCALERA [id number] [place] 00:00:00 00:00:00 CARINE Seybol d 2021-12-04 2021-12-04 Office Shaquille Ashby 1.2.840.114 [id number] [place] 16:00:00 16:30:00 Visit Jerri Saba 350.1.13.13 Se ybold 1.2.7.2.686 [id number] 2021-11-23 2021-11-23 Outpatient MALLIKA MEJIA [id number] [place] 00:00:00 00:00:00 GUANAKO Seybol d 2021-10-17 2021-10-17 Outpatient MALLIKA ESCALERA [id number] Mlalika 00:00:00 00:00:00 CARINE Seybol d 2021-10-16 2021-10-16 Office Jackie Shaquille 1.2.840.114 [id number] [place] 15:30:00 16:00:00 Visit Guanako Saba 350.1.13.13 Se ybold 1.2.7.2.686 [id number] 2021-10-16 2021-10-16 Outpatient MALLIKA MEJIA [id number] [place] 00:00:00 00:00:00 GUANAKO Seybol d 2021-03-08 2021-03-08 Emergency KEVIN Vaughn [id number] Univers 10:34:00 12:11:00 Esteban Mejias 350.1.13.10 i ty of [place] 4.2.7.2.686 [facility] [id number] [place] [address] [place] 2021-03-08 2021-03-08 Emergency X [facility] ERT [id number] Univers 10:11:00 10:11:00 ity [facility] 2021-03-08 2021-03-08 Orders Doctor EVE 1.2.840.114 [id number] Univers 00:00:00 00:00:00 Only Unassigned, KORINA 350.1.13.10 ity of [place] [facility] 4.2.7.2.686 [facility] [id number] [place] [address] [place] 2020-01-25 2020-01-25 Emergency [facility] [id number] Univers 17:26:04 18:56:00 Ofelia Mejias 350.1.13.10 i ty of [place] 4.2.7.2.686 [facility] [id number] [place] [address] [place] 2020-01-25 2020-01-25 [facility] [id number] 17:26:04 18:56:00 Ofelia Mejias 350.1.13.10 [place] 4.2.7.2.686 [place] [id number] [facility] 2020-01-25 2020-01-25 Emergency X [facility] ERT [id number] Univers 17:01:00 [facility] Test Description Test Time Test Comments Results Result Comments Source CBC WITH DIFF 2022-05-21 21:15:25 Test Item Value Reference Range Interpretation Comme nts WBC (test code = 6690-2) See_Comment [A utomated message] The system which ge nerated this result transmit jailene reference range: 4.30 - 1 1.10 10*3/?L. The reference r sandra was not used to interpr et this result as normal/abnor mal. RBC (test code = 789-8) See_Comment [Au tomated message] The system which ge nerated this result transmit jailene reference range: 3.93 - 5 .25 10*6/?L. The reference r sandra was not used to interpr et this result as normal/abnor mal. HGB (test code = 718-7) 14.0 g/dL 11.6-15 HCT (test code = 4544-3) 41.6 % 35.7-45.2 MCV (test code = 787-2) 92.0 fL 80.6-95.5 MCH (test code = 785-6) 31.0 pg 25.9-32.8 MCHC (test code = 786-4) 33.7 g/dL 31.6-35.1 RDW-SD (test code = 25121-0) 40.0 fL 39-49.9 RDW-CV (test code = 788-0) 11.8 % 12-15.5 L PLT (test code = 777-3) See_Comment [Au tomated message] The system which innocutis nerated this result transmit jailene reference range: 166 - 35 8 10*3/?L. The reference range was not used to interpret th is result as normal/abnormal . MPV (test code = 93428-4) 11.1 fL 9.5-12.9 NRBC/100 WBC (test code = See_Comment [ Automated message] The [id number]) system which innocutis nerated this result transmit jailene reference range: 0.0 - 10 .0 /100 WBCs. The reference r sandra was not used to interpr et this result as normal/abnor mal. NRBC x10^3 (test code = See_Comment [Au tomated message] The [id number]) system which innocutis nerated this result transmit jailene reference range: 10*3/?L. The reference range was not u sed to interpret this result as normal/abnormal . GRAN MAT (NEUT) % (test code 70.1 % = 770-8) IMM GRAN % (test code = 0.50 % [id number]) LYMPH % (test code = 736-9) 22.9 % MONO % (test code = 5905-5) 5.2 % EOS % (test code = 713-8) 0.7 % BASO % (test code = 706-2) 0.6 % GRAN MAT x10^3(ANC) (test 6.05 10*3/uL 1.88-7.09 code = 7317303213) IMM GRAN x10^3 (test code = 0.04 10*3/uL 0-0.06 [id number]) LYMPH x10^3 (test code = 1.97 10*3/uL 1.32-3.29 731-0) MONO x10^3 (test code = 0.45 10*3/uL 0.33-0.92 742-7) EOS x10^3 (test code = 0.06 10*3/uL 0.03-0.39 711-2) BASO x10^3 (test code = 0.05 10*3/uL 0.01-0.07 704-7) Lab Interpretation (test Abnormal code = 88568-8) [id number] 20:09:00 Test Item Value Reference Range Interpretation Comments POCT PREG (test code = 1605) Negative On board controls acceptable with C Yes Line (test code = 3574) POCT PREG LOT # (test code = 3575) POCT PREG TEST DATE (test code = 3576) [facility] [id number] 20:09:00 Test Item Value Reference Range Interpretation Comments POCT PREG (test code = 1605) Negative On board controls acceptable with C Yes Line (test code = 3574) POCT PREG LOT # (test code = 3575) POCT PREG TEST DATE (test code = 3576) [facility]
[2022-09-15 22:30] LABS: Urine Blood Trace-intact (Negative); Urine Glucose Negative (Negative); Urine Protein Trace (Negative); Urine Specific Gravity >=1.030 (1.005-1.030)
[2022-09-15] MEDS ORDERED: NA CHLORIDE 0.9% 1,000 ML ONE (23:02)
[2022-09-15 23:08] LABS: Urine Bacteria <20 /HPF (<20); Urine Mucus 2+ /HPF (None Seen)
[2022-09-15 23:21] LABS: Absolute Lymphocytes (CBC) 0.8 K/uL (0.7-4.9); Hematocrit 40.6 % (36.0-45.0); Lymphocytes % 10.2 % (15.3-44.8); MCV 91.7 fL (80-100); MPV 9.7 fL (7.6-11.3); RBC Red Blood Cell Count 4.42 M/uL (3.86-4.86)
[2022-09-15 23:31] LABS: Bilirubin Total 0.7 mg/dL (0.2-1.0); Potassium 3.5 mmol/L (3.5-5.1); Protein, Total 7.4 g/dL (6.4-8.2)
[2022-09-15 23:51] LABS: SARS-COV-2 RT PCR NEGATIVE (NEGATIVE)
[2022-09-15 23:55] LABS: Urine Specific Gravity/Preg >1.030 (1.005-1.030)
--- NOTE | 2022-09-15 23:59 | ER ---
Nurse's Notes 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 Coronavirus screen: Vaccine status: Patient reports receiving the 2nd dose of the covid vaccine. chills, diarrhea. Coronavirus screen: nausea, shortness of breath, vomiting. Ebola Screen: No symptoms or risks identified at this time. Initial Sepsis Screen: Does the patient meet any 2 criteria? No. Patient's initial sepsis screen is negative. Does the patient have a suspected source of infection? No. Patient's initial sepsis screen is negative. Risk Assessment: Do you want to hurt yourself or someone else? Patient reports no desire to harm self or others. Onset of symptoms was September 15, 2022 at 10:00. Care prior to arrival: None. 21:46 Method Of Arrival: Ambulatory ll3 21:46 Acuity: NISHI 3 ll3 Triage Assessment: 21:50 General: Appears uncomfortable, Behavior is appropriate for age. Respiratory: Reports ke1 shortness of breath on exertion the patient has mild shortness of breath. 23:05 Respiratory: Onset: The symptoms/episode began/occurred this morning. 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 - Social history:: Smoking status: Reported history of juuling and/or vaping. Screenin:50 [facility] ED Fall Risk Assessment (Adult) History of falling in the last 3 months, ke1 including since admission No falls in past 3 months (0 pts) Confusion or Disorientation No (0 pts) Intoxicated or Sedated No (0 pts) Impaired Gait No (0 pts) Mobility Assist Device Used No (0 pt) Altered Elimination No (0 pt) Score/Fall Risk Level 0 - 2 = Low Risk. Abuse screen: Denies threats or abuse. Nutritional screening: No deficits noted. Tuberculosis screening: No symptoms or risk factors identified. Assessment: 21:50 Pain: Denies pain. Cardiovascular: Heart tones S1 S2. Respiratory: Airway is patent ke1 Respiratory effort is even, unlabored, Breath sounds are clear bilaterally. Vital Signs: 21:46 BP 124 / 78; Pulse 100; Resp 18; Temp 100.4(O); Pulse Ox 100% on R/A; Weight 61.23 kg ll3 (R); Height 5 ft. 5 in. (165.10 cm) (R); Pain 8/10; 23:03 BP 118 / 77; Pulse 87; Resp 17; Temp 100.4(O); Pulse Ox 100% on R/A; Pain 0/10; ke1 21:46 Body Mass Index 22.46 (61.23 kg, 165.10 cm) ll3 ED Course: 21:37 Patient arrived in ED. ja2 21:47 Lindsay Garcia FNP-C is PHCP. snw 21:47 Aashish Cornelius DO is Attending Physician. snw 21:48 Triage completed. ll3 21:48 Arm band placed on. ll3 22:06 Nancy Valdovinos, RN is Primary Nurse. ke1 22:29 Strep Sent. ke1 22:29 COVID-19/FLU A+B/RSV Sent. ke1 22:29 Urine Microscopic Only Sent. ke1 22:50 Inserted saline lock: 20 gauge in left antecubital area, using aseptic technique. ke1 22:55 CMP Sent. ke1 22:55 CBC with Diff Sent. ke1 23:05 Placed in gown. Bed in low position. ke1 09/16 00:12 No provider procedures requiring assistance completed. IV discontinued, intact, ll3 bleeding controlled, No redness/swelling at site. Pressure dressing applied. Administered Medications: 09/15 23:01 Drug: NS 0.9% 1000 ml Route: IV; Rate: 1 bolus; Site: left antecubital; ke1 Medication: 09/16 00:12 VIS not applicable for this client. ll3 Outcome: 09/15 23:58 Discharge ordered by . shannan 09/16 00:12 Discharged to home ambulatory, with friend. ll3 Condition: stable Discharge instructions given to patient, friend, Instructed on discharge instructions, follow up and referral plans. medication usage, Demonstrated understanding of instructions, follow-up care, medications, Prescriptions given X 1. 00:12 Patient left the ED. ll3 Signatures: Lindsay Garcia, DIRECTOR OF MARKETING OPERATIONS-C DIRECTOR OF MARKETING OPERATIONS-Csnw Araceli Jordan Lynsea, RN RN ll3 Nancy Valdovinos RN RN ke1
--- NOTE | 2022-09-15 23:59 | EDPHYS ---
Physician Documentation [facility] Name: Ester Bonilla Age: 26 yrs Sex: Female : 1995 Arrival Date: 09/15/2022 Time: 21:37 Bed 13 Private MD: ED Physician Aashish Cornelius HPI: 09/15 22:35 This 26 yrs old Female presents to ER via Ambulatory with complaints of snw Shortness Of Breath, Dizziness, Vomiting. 22:35 The patient or guardian reports difficulty breathing, flu symptoms, low-grade fever, snw myalgias, no appetite. Onset: The symptoms/episode began/occurred acutely, 1 day(s) ago, and became persistent. Associated signs and symptoms: Pertinent positives: fever, nausea, vomiting. Severity of symptoms: At their worst the symptoms were moderate in the emergency department the symptoms have improved mildly. The patient has not experienced similar symptoms in the past. The patient has not recently seen a physician. 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 - Social history:: Smoking status: Reported history of juuling and/or vaping. ROS: 22:34 Eyes: Negative for injury, pain, redness, and discharge, ENT: Negative for injury, snw pain, and discharge, Neck: Negative for injury, pain, and swelling, Cardiovascular: Negative for chest pain, palpitations, and edema. 22:34 Back: Negative for injury and pain, : Negative for injury, bleeding, discharge, and swelling, MS/Extremity: Negative for injury and deformity, Skin: Negative for injury, rash, and discoloration. 22:34 Constitutional: Positive for body aches, malaise, poor PO intake. 22:34 Respiratory: Positive for shortness of breath, at rest. 22:34 Abdomen/GI: Positive for nausea, vomiting, and diarrhea. 22:34 Neuro: Positive for dizziness. Exam: 22:33 Constitutional: This is a well developed, well nourished patient who is awake, alert, snw and in no acute distress. Head/Face: Normocephalic, atraumatic. Eyes: Pupils equal round and reactive to light, extra-ocular motions intact. Lids and lashes normal. Conjunctiva and sclera are non-icteric and not injected. Cornea within normal limits. Periorbital areas with no swelling, redness, or edema. Neck: Trachea midline, no thyromegaly or masses palpated, and no cervical lymphadenopathy. Supple, full range of motion without nuchal rigidity, or vertebral point tenderness. No Meningismus. Chest/axilla: Normal chest wall appearance and motion. Nontender with no deformity. No lesions are appreciated. Cardiovascular: Regular rate and rhythm with a normal S1 and S2. No gallops, murmurs, or rubs. Normal PMI, no JVD. No pulse deficits. Respiratory: Lungs have equal breath sounds bilaterally, clear to auscultation and percussion. No rales, rhonchi or wheezes noted. No increased work of breathing, no retractions or nasal flaring. Abdomen/GI: Soft, non-tender, with normal bowel sounds. No distension or tympany. No guarding or rebound. No evidence of tenderness throughout. Back: No spinal tenderness. No costovertebral tenderness. Full range of motion. Skin: Warm, dry with normal turgor. Normal color with no rashes, no lesions, and no evidence of cellulitis. MS/ Extremity: Pulses equal, no cyanosis. Neurovascular intact. Full, normal range of motion. Neuro: Awake and alert, GCS 15, oriented to person, place, time, and situation. Cranial nerves II-XII grossly intact. Motor strength 5/5 in all extremities. Sensory grossly intact. Cerebellar exam normal. Normal gait. Psych: Awake, alert, with orientation to person, place and time. Behavior, mood, and affect are within normal limits. 22:33 ENT: External ear(s): are unremarkable, Ear canal(s): are normal, TM's: erythema, that is mild, on the left, Examination of the other ear shows no obvious abnormality, Mouth: is normal, Posterior pharynx: erythema, that is mild, that is moderate, Voice: is normal. Vital Signs: 21:46 BP 124 / 78; Pulse 100; Resp 18; Temp 100.4(O); Pulse Ox 100% on R/A; Weight 61.23 kg ll3 (R); Height 5 ft. 5 in. (165.10 cm) (R); Pain 8/10; 23:03 BP 118 / 77; Pulse 87; Resp 17; Temp 100.4(O); Pulse Ox 100% on R/A; Pain 0/10; ke1 21:46 Body Mass Index 22.46 (61.23 kg, 165.10 cm) ll3 MDM: 21:57 Patient medically screened. snw 09/16 00:00 Differential diagnosis: bronchitis, flu, URI. Antibiotic administration: Not indicated. snw Data interpreted: Pulse oximetry: on room air is 100 %. Interpretation: normal. Data reviewed: vital signs, nurses notes, lab test result(s). Counseling: I had a detailed discussion with the patient and/or guardian regarding: the historical points, exam findings, and any diagnostic results supporting the discharge/admit diagnosis, lab results, the need for outpatient follow up, to return to the emergency department if symptoms worsen or persist or if there are any questions or concerns that arise at home. Special discussion: Based on the history and exam findings, there is no indication for further emergent testing or inpatient evaluation. I discussed with the patient/guardian the need to see the primary care provider for further evaluation of the symptoms. 09/15 22:04 Order name: Urine Microscopic Only; Complete Time: 23:11 snw 09/15 22:04 Order name: COVID-19/FLU A+B/RSV; Complete Time: 23:53 snw 09/15 22:04 Order name: Strep; Complete Time: 23:36 snw 09/15 22:30 Order name: Urine --Ancillary (enter results); Complete Time: 00:01 mw2 09/15 22:30 Order name: Urine Dipstick-Ancillary; Complete Time: 22:31 EDMS 09/15 22:32 Order name: CBC with Diff; Complete Time: 23:36 snw 09/15 22:04 Order name: Urine Dipstick-Ancillary (obtain specimen); Complete Time: 22:29 snw 09/15 22:04 Order name: Urine Test (obtain specimen); Complete Time: 22:29 snw 09/15 22:32 Order name: CMP; Complete Time: 23:32 snw 09/15 23:36 Order name: Throat Culture EDMS Administered Medications: 09/15 23:01 Drug: NS 0.9% 1000 ml Route: IV; Rate: 1 bolus; Site: left antecubital; ke1 Disposition: 09/16 05:33 Co-signature as Attending Physician, Aashish Cornelius DO I reviewed the patient's care ms3 provided by the Advanced Practice Provider and agree with the diagnosis and treatment plan. Disposition Summary: 09/15/22 23:58 Discharge Ordered Location: Home snw Condition: Stable snw Diagnosis - Volume depletion, unspecified snw - Viral infection, unspecified snw Followup: snw - With: Emergency Department - When: As needed - Reason: Worsening of condition Followup: snw - With: Private Physician - When: 2 - 3 days - Reason: Recheck today's complaints, Continuance of care, Re-evaluation by your physician Discharge Instructions: - Discharge Summary Sheet snw - Dehydration, Adult snw - Fever, Adult snw - Viral Respiratory Infection snw - Rehydration, Adult snw Forms: - Medication Reconciliation Form snw - Thank You Letter snw - Antibiotic Education snw - Prescription Opioid Use snw - Work release form snw Prescriptions: - promethazine 25 mg Oral Tablet - take 1 tablet by ORAL route every 6 hours As needed; 20 tablet; Refills: 0, snw Product Selection Permitted Signatures: Dispatcher [employer] EDMS Lindsay Garcia FNP-C ASSOCIATE DIRECTOR OF BIOSTATISTICS-CsnAashish Altman DO DO ms3 Nicki Saab, RN RN ll3 Nancy Valdovinos RN RN ke1
[2022-09-16 00:32] VITALS: TEMP 100.4; O2SAT 100
[2022-09-16 00:33] VITALS: BP 118/77
== END 2022-09-16 00:12 | disposition home or self-care (01) ==
LOC: ER 21:33
DX: E86.9 Volume depletion, unspecified (principal); B34.9 Viral infection, unspecified; Z20.822 Contact with and (suspected) exposure to COVID-19
CPT/HCPCS: 87070; 85025; 36415; 81025; 87081; 80053; 0241U; 99284; J7030; 81003; 81015

== ENCOUNTER 2025-03-25 16:41 | Emergency (ER) | payer OTHER, SELFPAY ==
--- OUTSIDE RECORDS SUMMARY | 2025-03-25 16:49 | XMS REPORT | Continuity of Care Document ---
Author Name Unknown Address [address] [facility] [address] [place] [address] [facility] Address [address] [facility] [place] [address] Care Team Providers Care Trailer Park Manager Name Role Phone Gretel Escalera MD Primary Care Physician COLIN COWAN Attending Clinician Unavailab RENETTA Brown Attending Clinician Unavailable KEO SEGOVIA Attending Clinician UnavailJERRI Lu Attending Clinician Unavailable RANDALL SIMMONS Attending Clinician Unavailable LASHAWN RAMIREZ Attending Clinician Unavailable PROMISE SIMMONS Attending Clinician Unavailable DANIEL BANEGAS Attending Clinician Unavailable ALEJO LINARES Attending Clinician Unavailable MD BARRERA Attending Clinician Unavailab ZEHRA Victor Attending Clinician Lakeisha vailable LAB08 Attending Clinician Unavailable ROBERTA VERA Attending Clinician Unavailab NADINE Li Attending Clinician UnaJAIME Valadez Attending Clinician Unavailable GUSTAVO FERREIRA Attending Clinician Unavailable HOMER APODACA Attending Clinician Unavailable CHRIS BRUNO Attending Clinician Unavailable 39, HOLTER Attending Clinician Unavailable TOI PEOPLES Attending Clinician Unavailable Toi Peoples MD Attending Clinician [phone] MARGAUX MALAGON Attending Clinician Unavailable GRETEL ESCALERA Attending Clinician Unava ilMARY Gonzalez Attending Clinician UnavailMARY Palumbo Attending Clinician Unavaila sandy Doctor Unassigned, [place] Attending Clinician U navailable Pob, [facility] Main Attending Clinician UnavailLucio Moreland MD Attending Clinician [phone] LAB90 Attending Clinician Unavailable Jerri Lara Attending Clinician [phone] GREGORY MEJIA Attending Clinician Unavailable Gregory Mejia DO Attending Clinician [phone] Esteban Vaughn DO Attending Clinician [phone] Ofelia Shepherd Attending Clinician [phone] TOI PEOPLES Admitting Clinician Unavailable MARY POLLOCK Admitting Clinician Unavailanjali delgado Payers Payer Name Policy Type Policy Number Effective Date Expirati on Date Source [facility] LAURIE QUIROZ COPAY FOCUS 9 [id number] 2025 00:00:00 [facility] 9 [id number] 2021 00:00:00 [facility] [id number] 04-05 00:00:00 [facility] [id number] 00:00:00 Problems Condition Name Condition Details Condition Category Status Onset Date Resolution Date Last Treatment Date Treating Clinician Comments Source Chest pain Chest pain Disease Active 09-18 00:00: 00 Mallika newman Pre-op evaluation Pre-op evaluation Disease Active 09-18 00:00: 00 Mallika newman Acute pain of left shoulder Acute pain of left shoulder Disease Active 09-18 00:00: 00 Mallika Seybold - Externa l Menorrhagi a with irregular cycle Menorrhagi a with irregular cycle Disease Active 2-10 00:00: 00 [facility] Breast pain, left Breast pain, left Disease Active 2021-08 0-20 00:00: 00 [facility] Vaginal discharge Vaginal discharge Disease Active 2021-08 0-17 00:00: 00 [facility] Irregular menstrual cycle Irregular menstrual cycle Disease Active 2021-08 0-17 00:00: 00 [facility] Hirsutism Hirsutism Disease Active 2021-08 0-17 00:00: 00 [facility] Encounter for initial management of nuvaring Encounter for initial management of nuvaring Disease Active 5-04 00:00: 00 [facility] Absence of menstruati on Absence of menstruati on Disease Active 5-04 00:00: 00 [facility] Pain pelvic Pain pelvic Disease Active 5-04 00:00: 00 [facility] Need for HPV vaccine Need for HPV vaccine Disease Active 5-04 00:00: 00 [facility] Bipolar 1 disorder Bipolar 1 disorder Disease Active 3-14 00:00: 00 [facility] Right wrist pain Right wrist pain Disease Active 3-14 00:00: 00 [facility] Dizziness (finding) Dizziness (finding) Active Problem 01/27/2022 [facility] Problem Active 2022-01-27 22:26:39 Memdalila Carriazles Migraine (disorder) Migraine (disorder) Active Problem 01/27/2022 [facility] Problem Active 2022-01-27 22:26:39 Jaylen Carrizales Allergies, Adverse Reactions, Alerts Allergy Name Allergy Type Status Severity Reaction(s) Onset Date Inactive Date Treating Clinician Comments Source NO KNOWN ALLERGIE S Drug Class Active [facility] Social History Social Habit Start Date Stop Date Quantity Comments Source History SDOH Alcohol Frequency Mallika Andersony bold History SDOH Alcohol Std Drinks Mallika Anderson ybold History SDOH Alcohol Binge Mallika Garcia [facility] intake 2024-01-24 00:00:00 2024-01-24 00:00:00 Current drinker of alcohol (finding) Mallika Rayold - External Alcohol intake 2023-09-13 00:00:00 2023-09-13 00:00:00 Current drinker of alcohol (finding) [facility] Exposure to SARS-CoV-2 (event) 2022-09-16 00:00:00 2022-09-26 08:52:[address] [facility] Tobacco use and exposure 2022-05-21 00:00:00 2022-05-21 00:00:00 Smokeless tobacco non-user [facility] Social History 2022-01-02 18:15:53 2022-01-02 18:15:53 [facility] History of Social function 2021-12-06 00:00:00 2021-12-06 00:00:00 [facility] Education 2021-10-16 00:00:00 2021-10-16 00:00:00 12 Mallika Garcia - External Alcohol Comment 2021-10-16 00:00:00 2021-10-16 00:00:00 occassional Mallika Garcia - External Sex assigned at 1995 00:00:00 1995 00:00:00 Mallika Rayold - External Smoking Status Start Date Stop Date Source Never smoked tobacco Mallika Garcia - External Medications Ordered Medication Name Filled Medication Name Start Date Stop Date Current Medication? Ordering Clinician Indication Dosage Frequency Signature (SIG) Comments Components Source Vit-DSS-Fe Cbn-FA ( AD OR) 01-23 10:09: 47 Yes Take by mouth. Mallika newman Quetiapine Fumarate 50 MG oral Tablet 12-11 00:00: 00 Yes [id number] 50mg Take 1 tablet (50 mg total) by mouth 2 times daily. Mallika Lariosa paty medroxyPROG ESTERone Acetate (Provera) 10 MG oral Tablet - 00:00: 00 Yes [id number] 10mg Take 1 tablet (10 mg total) by mouth daily. Mallika Avendano Externa paty Quetiapine Fumarate 50 MG oral Tablet 11-10 00:00: 00 Yes [id number] 50mg Take 1 tablet (50 mg total) by mouth 2 times daily. Mallika newman Etonogestre paty-Ethinyl Estradiol 0.12-0.015 MG/24HR vaginal RING 11-10 00:00: 00 Yes [id number] 1{each} Place 1 each vaginally once a month. Mallika newman Ondansetron HCl 4 MG oral Tablet 11-10 00:00: 00 Yes [id number] 8mg Q.[id number] 3D Take 2 tablets (8 mg total) by mouth every 8 hours as needed for nausea. Mallika newman linaCLOtide (Linzess) 145 MCG oral Capsule 11-10 00:00: 00 Yes [id number] 145ug Take 1 capsule (145 mcg total) by mouth daily. Mallika newman Ondansetron HCl 4 MG oral Tablet 10-22 00:00: 00 Yes [id number] 4mg Q.[id number] 3D Take 1 tablet (4 mg total) by mouth every 8 hours as needed for nausea. Mallika newman Aripiprazol e 10 MG oral Tablet 10-22 00:00: 00 Yes [id number] 30{tbl} Take 30 tablets by mouth daily. Mallika newman Omeprazole 20 MG oral Delayed Release Capsule 10-22 00:00: 00 Yes [id number] 20mg Take 1 capsule (20 mg total) by mouth daily. Mallika newman Aripiprazol e 10 MG oral Tablet 3-20 00:00: 00 11-10 00:00 :00 No [id number] 1{tbl} Take 1 tablet by mouth daily. Mallika newman methylPREDN ISolone (Medrol) 4 MG oral Tablet Therapy Pack 2-14 00:00: 00 Yes [id number] 9106 1{sarah} Take 1 sarah by mouth See Admin Instructio ns Use as directed.. Mallika Seybold - Externa l sulfur hexafluorid e microsphr (LUMASON) injection 5 mL 09-13 16:30: 00 09-13 16:28 :00 No [id number] 5mL 5 mL, Intravenou s, ONCE, 1 dose, On Sat09/13/23 at 1030, Routine
social work faculty member approving Restricted medication : JAIME RANDHAWA [facility] Cephalexin 500 MG oral Capsule - 00:00: 00 Yes Mallika newman Ibuprofen (MOTRIN) 800 MG oral Tablet 2-05 00:00: 00 Yes 800mg Take 1 tablet (800 mg total) by mouth every 6 to 8 hours as needed FOR PAIN. Mallika newman Aripiprazol e (Abilify) 10 MG oral Tablet 2022-08 00:00: 00 09-18 00:00 :00 No [id number] 1{tbl} Take 1 tablet by mouth daily. Mallika newman Cariprazine HCl (Vraylar) 1.5 & 3 MG oral Capsule Therapy Pack 2022-08 00:00: 00 Yes [id number] 1{each} Take 1 each by mouth daily. Mallika newman Etonogestre paty-Ethinyl Estradiol 0.12-0.015 MG/24HR vaginal RING 2- 00:00: 00 11-10 00:00 :00 No 1{each} Place 1 each vaginally once a month. Mallika newman metroNIDAZO LE 500 mg tablet 2021-08 0-19 00:00: 00 05-31 04:59 :00 No [id number] 500mg Take 1 tablet by mouth every 12 (twelve) hours for 7 days. [facility] Ondansetron (Zofran ODT) 4 MG oral TABLET DISPERSIBLE 6-17 00:00: 00 06-10 00:00 :00 No [id number] 4mg Q.[id number] 3D Take 1 tablet (4 mg total) by mouth every 8 hours as needed for nausea Mallika newman Effexor XR 37.5 mg oral capsule, extended release 01-02 19:10: 00 Yes 37.5 mg = 1 cap, PO, Daily, # 30 cap, 3 Refill(s), Pharmacy: [facility] [id number], 163.83, cm, 01/02/22 13:48:00 CDT, Height, 57.415, kg, 01/02/22 13:48:00 CDT, Weight Jaylen Carrizales ARIPiprazol e 15 mg oral tablet 01-02 18:17: 00 Yes 0 Refill(s) Jaylen Carrizales meclizine 25 mg oral tablet 01-02 18:16: 00 Yes 25 mg = 1 tab, PO, TID, PRN for dizziness, # 60 tab, 0 Refill(s) Jaylen Carrizales Venlafaxine HCl 37.5 MG oral Capsule 24 Hour Sustained Release 01-02 00:00: 00 06-10 00:00 :00 No 37.5 mg = 1 cap, PO, Daily, # 30 cap, 3 Refill(s), Pharmacy: [facility] [id number], 163.83, cm, 01/02/22 13:48:00 CDT, Height, 57.415, kg, 01/02/22 13:48:00 CDT, Weight Mallika newman Aripiprazol e (Abilify) 15 MG oral Tablet 12-06 00:00: 00 Yes [id number] 15mg Take 1 tablet (15 mg total) by mouth daily Mallika Garcia Meclizine HCl 25 MG oral Tablet 12-04 00:00: 00 Yes [id number] 25mg Q.[id number] 3D Take 1 tablet (25 mg total) by mouth 3 times daily as needed Mallika Garcia No known medications 3-14 15:27: 26 No No known medication s Mallika Garcia fluticasone propionate 50 mcg/actuati on nasal spray 804 00:00: 00 Yes [id number] 2{spray } Use 2 Sprays in each nostril daily. [facility] chlorphenir amine 4 mg tablet 03-08 00:00: 00 Yes [id number] 4mg Take 1 tablet by mouth every 6 (six) hours as needed for Allergies or Runny nose. [facility] ibuprofen 600 mg tablet 08-11 00:00: 00 Yes 600mg Take 1 tablet by mouth every 6 (six) hours as needed for Pain (scale 1-3). [facility] metoclopram niles HCl 10 mg tablet 2017-08 00:00: 00 05-21 00:00 :00 No 10mg Take 1 tablet by mouth every 6 (six) hours. [facility] Immunizations Ordered Immunization Name Filled Immunization Name Date Status Comments Source [facility] 2021-12-06 00:00:00 Completed [facility] 2021-12-06 00:00:00 Completed [facility] 2021-12-06 00:00:00 Completed [facility] 2021-12-06 00:00:[address] [facility] HPV9 2021-12-06 00:00:00 Completed [facility] 2021-12-06 00:00:00 Completed [facility] 2021-12-06 00:00:[address] [facility] HPV9 2021-12-06 00:00:[address] [facility] HPV9 2021-12-06 00:00:[address] [facility] HPV9 2021-12-06 00:00:[address] [facility] HPV9 2021-12-06 00:00:[address] [facility] HPV9 2021-12-06 00:00:[address] [facility] HPV9 2021-12-06 00:00:[address] [facility] SARS-COV-2 COVID-19 PFIZER VACCINE 2020-12-24 00:00:[address] [facility] SARS-COV-2 COVID-19 PFIZER VACCINE 2020-12-24 00:00:[address] [facility] SARS-COV-2 COVID-19 PFIZER VACCINE 2020-12-24 00:00:[address] [facility] SARS-COV-2 COVID-19 PFIZER VACCINE 2020-12-24 00:00:[address] [facility] SARS-COV-2 COVID-19 PFIZER VACCINE 2020-12-24 00:00:[address] [facility] SARS-COV-2 COVID-19 PFIZER VACCINE 2020-12-24 00:00:[address] [facility] SARS-COV-2 COVID-19 PFIZER VACCINE 2020-12-24 00:00:[address] [facility] SARS-COV-2 COVID-19 PFIZER VACCINE 2020-12-24 00:00:[address] [facility] SARS-COV-2 COVID-19 PFIZER VACCINE 2020-12-24 00:00:[address] [facility] SARS-COV-2 COVID-19 PFIZER VACCINE 2020-12-24 00:00:[address] [facility] SARS-COV-2 COVID-19 PFIZER VACCINE 2020-12-24 00:00:[address] [facility] SARS-COV-2 COVID-19 PFIZER VACCINE 2020-12-24 00:00:[address] [facility] SARS-COV-2 COVID-19 PFIZER VACCINE 2020-12-24 00:00:[address] [facility] SARS-COV-2 COVID-19 PFIZER VACCINE 2020-12-03 00:00:[address] [facility] SARS-COV-2 COVID-19 PFIZER VACCINE 2020-12-03 00:00:[address] [facility] SARS-COV-2 COVID-19 PFIZER VACCINE 2020-12-03 00:00:[address] [facility] SARS-COV-2 COVID-19 PFIZER VACCINE 2020-12-03 00:00:[address] [facility] SARS-COV-2 COVID-19 PFIZER VACCINE 2020-12-03 00:00:[address] [facility] SARS-COV-2 COVID-19 PFIZER VACCINE 2020-12-03 00:00:[address] [facility] SARS-COV-2 COVID-19 PFIZER VACCINE 2020-12-03 00:00:[address] [facility] SARS-COV-2 COVID-19 PFIZER VACCINE 2020-12-03 00:00:[address] [facility] SARS-COV-2 COVID-19 PFIZER VACCINE 2020-12-03 00:00:[address] [facility] SARS-COV-2 COVID-19 PFIZER VACCINE 2020-12-03 00:00:[address] [facility] SARS-COV-2 COVID-19 PFIZER VACCINE 2020-12-03 00:00:[address] [facility] SARS-COV-2 COVID-19 PFIZER VACCINE 2020-12-03 00:00:[address] [facility] SARS-COV-2 COVID-19 PFIZER VACCINE 2020-12-03 00:00:[address] [facility] Influenza, Seasonal, Injectable, Preservative Free 2016-06-23 00:00:00 Completed Mallika vishnukalpana Influenza, Seasonal, Injectable, Preservative Free 2016-06-23 00:00:00 Completed Mallika vishnukalpana Influenza Virus Vaccine (3+ yrs) 2016-06-23 00:00:[address] [facility] Influenza Virus Vaccine (3+ yrs) 2016-06-23 00:00:[address] [facility] Influenza Virus Vaccine (3+ yrs) 2016-06-23 00:00:[address] [facility] Influenza Virus Vaccine (3+ yrs) 2016-06-23 00:00:[address] [facility] Influenza Virus Vaccine (3+ yrs) 2016-06-23 00:00:[address] [facility] Influenza Virus Vaccine (3+ yrs) 2016-06-23 00:00:[address] [facility] Influenza Virus Vaccine (3+ yrs) 2016-06-23 00:00:[address] [facility] Influenza Virus Vaccine (3+ yrs) 2016-06-23 00:00:[address] [facility] Influenza Virus Vaccine (3+ yrs) 2016-06-23 00:00:[address] [facility] Influenza Virus Vaccine (3+ yrs) 2016-06-23 00:00:[address] [facility] Influenza Virus Vaccine (3+ yrs) 2016-06-23 00:00:[address] [facility] Influenza Virus Vaccine (3+ yrs) 2016-06-23 00:00:[address] [facility] Influenza Virus Vaccine (3+ yrs) 2016-06-23 00:00:[address] [facility] Influenza, Seasonal, Injectable 2012-06-18 00:00:00 Completed Mallika Garcia Influenza, Seasonal, Injectable 2012-06-18 00:00:00 Completed Mallika Garcia Influenza Virus Vaccine (3+ yrs) 2012-06-18 00:00:[address] [facility] Influenza Virus Vaccine (3+ yrs) 2012-06-18 00:00:[address] [facility] Influenza Virus Vaccine (3+ yrs) 2012-06-18 00:00:[address] [facility] Influenza Virus Vaccine (3+ yrs) 2012-06-18 00:00:[address] [facility] Influenza Virus Vaccine (3+ yrs) 2012-06-18 00:00:[address] [facility] Influenza Virus Vaccine (3+ yrs) 2012-06-18 00:00:[address] [facility] Influenza Virus Vaccine (3+ yrs) 2012-06-18 00:00:[address] [facility] Influenza Virus Vaccine (3+ yrs) 2012-06-18 00:00:[address] [facility] Influenza Virus Vaccine (3+ yrs) 2012-06-18 00:00:[address] [facility] Influenza Virus Vaccine (3+ yrs) 2012-06-18 00:00:[address] [facility] Influenza Virus Vaccine (3+ yrs) 2012-06-18 00:00:[address] [facility] Influenza Virus Vaccine (3+ yrs) 2012-06-18 00:00:[address] [facility] Influenza Virus Vaccine (3+ yrs) 2012-06-18 00:00:[address] [facility] Tdap- (Boostrix, Adacel) 2011-03-22 00:00:00 Completed Mallika Garcia Tdap- (Boostrix, Adacel) 2011-03-22 00:00:00 Completed Mallika Garcia TDAP 2011-03-22 00:00:[address] [facility] TDAP 2011-03-22 00:00:[address] [facility] TDAP 2011-03-22 00:00:[address] [facility] TDAP 2011-03-22 00:00:[address] [facility] TDAP 2011-03-22 00:00:[address] [facility] TDAP 2011-03-22 00:00:[address] [facility] TDAP 2011-03-22 00:00:[address] [facility] TDAP 2011-03-22 00:00:[address] [facility] TDAP 2011-03-22 00:00:[address] [facility] TDAP 2011-03-22 00:00:[address] [facility] TDAP 2011-03-22 00:00:[address] [facility] TDAP 2011-03-22 00:00:[address] [facility] TDAP 2011-03-22 00:00:[address] [facility] HEPATITIS A- PEDI/ADOL 2009-05-31 00:00:00 Completed Mallika Garcia HPV 4 (Human Papillomavirus) 2009-05-31 00:00:00 Completed Mallika Garcia Meningococcal Vaccine- Conjugate(Menactra) 2009-05-31 00:00:00 Completed Mallika Garcia HEPATITIS A- PEDI/ADOL 2009-05-31 00:00:00 Completed Mallika Garcia HPV 4 (Human Papillomavirus) 2009-05-31 00:00:00 Completed Mallika Garcia Meningococcal Vaccine- Conjugate(Menactra) 2009-05-31 00:00:00 Completed Mallika Garcia HEPATITIS A 2009-05-31 00:00:[address] [facility] HPV 2009-05-31 00:00:[address] [facility] Meningococcal Polysaccharide (groups A, C, Y and W-135) conjugate vaccine (MCV4P) 2009-05-31 00:00:[address] [facility] HEPATITIS A 2009-05-31 00:00:[address] [facility] HPV 2009-05-31 00:00:[address] [facility] Meningococcal Polysaccharide (groups A, C, Y and W-135) conjugate vaccine (MCV4P) 2009-05-31 00:00:[address] [facility] HEPATITIS A 2009-05-31 00:00:[address] [facility] HPV 2009-05-31 00:00:[address] [facility] Meningococcal Polysaccharide (groups A, C, Y and W-135) conjugate vaccine (MCV4P) 2009-05-31 00:00:[address] [facility] HEPATITIS A 2009-05-31 00:00:[address] [facility] HPV 2009-05-31 00:00:[address] [facility] Meningococcal Polysaccharide (groups A, C, Y and W-135) conjugate vaccine (MCV4P) 2009-05-31 00:00:[address] [facility] HEPATITIS A 2009-05-31 00:00:[address] [facility] HPV 2009-05-31 00:00:[address] [facility] Meningococcal Polysaccharide (groups A, C, Y and W-135) conjugate vaccine (MCV4P) 2009-05-31 00:00:[address] [facility] HEPATITIS A 2009-05-31 00:00:[address] [facility] HPV 2009-05-31 00:00:[address] [facility] Meningococcal Polysaccharide (groups A, C, Y and W-135) conjugate vaccine (MCV4P) 2009-05-31 00:00:[address] [facility] HEPATITIS A 2009-05-31 00:00:[address] [facility] HPV 2009-05-31 00:00:[address] [facility] Meningococcal Polysaccharide (groups A, C, Y and W-135) conjugate vaccine (MCV4P) 2009-05-31 00:00:[address] [facility] HEPATITIS A 2009-05-31 00:00:[address] [facility] HPV 2009-05-31 00:00:[address] [facility] Meningococcal Polysaccharide (groups A, C, Y and W-135) conjugate vaccine (MCV4P) 2009-05-31 00:00:[address] [facility] HEPATITIS A 2009-05-31 00:00:[address] [facility] HPV 2009-05-31 00:00:[address] [facility] Meningococcal Polysaccharide (groups A, C, Y and W-135) conjugate vaccine (MCV4P) 2009-05-31 00:00:[address] [facility] HEPATITIS A 2009-05-31 00:00:[address] [facility] HPV 2009-05-31 00:00:[address] [facility] Meningococcal Polysaccharide (groups A, C, Y and W-135) conjugate vaccine (MCV4P) 2009-05-31 00:00:[address] [facility] HEPATITIS A 2009-05-31 00:00:[address] [facility] HPV 2009-05-31 00:00:[address] [facility] Meningococcal Polysaccharide (groups A, C, Y and W-135) conjugate vaccine (MCV4P) 2009-05-31 00:00:[address] [facility] HEPATITIS A 2009-05-31 00:00:[address] [facility] HPV 2009-05-31 00:00:[address] [facility] Meningococcal Polysaccharide (groups A, C, Y and W-135) conjugate vaccine (MCV4P) 2009-05-31 00:00:[address] [facility] HEPATITIS A 2009-05-31 00:00:[address] [facility] HPV 2009-05-31 00:00:[address] [facility] Meningococcal Polysaccharide (groups A, C, Y and W-135) conjugate vaccine (MCV4P) 2009-05-31 00:00:[address] [facility] HEPATITIS A- PEDI/ADOL 2007-12-01 00:00:00 Completed Mallika Garcia HEPATITIS A- PEDI/ADOL 2007-12-01 00:00:00 Completed Mallika Garcia HEPATITIS A 2007-12-01 00:00:[address] [facility] HEPATITIS A 2007-12-01 00:00:[address] [facility] HEPATITIS A 2007-12-01 00:00:[address] [facility] HEPATITIS A 2007-12-01 00:00:[address] [facility] HEPATITIS A 2007-12-01 00:00:[address] [facility] HEPATITIS A 2007-12-01 00:00:[address] [facility] HEPATITIS A 2007-12-01 00:00:[address] [facility] HEPATITIS A 2007-12-01 00:00:[address] [facility] HEPATITIS A 2007-12-01 00:00:[address] [facility] HEPATITIS A 2007-12-01 00:00:[address] [facility] HEPATITIS A 2007-12-01 00:00:[address] [facility] HEPATITIS A 2007-12-01 00:00:[address] [facility] HEPATITIS A 2007-12-01 00:00:[address] [facility] Varicella Vaccine 2006-07-15 00:00:00 Completed Mallika Garcia DTaP Unspecified 2006-07-15 00:00:00 Completed Mallika Garcia Varicella Vaccine 2006-07-15 00:00:00 Completed Mallika Sevishnuold DTaP Unspecified 2006-07-15 00:00:00 Completed Mallika Garcia TDAP 2006-07-15 00:00:[address] [facility] Varicella (varivax)(chicken pox) 2006-07-15 00:00:[address] [facility] TDAP 2006-07-15 00:00:[address] [facility] Varicella (varivax)(chicken pox) 2006-07-15 00:00:[address] [facility] TDAP 2006-07-15 00:00:[address] [facility] Varicella (varivax)(chicken pox) 2006-07-15 00:00:[address] [facility] TDAP 2006-07-15 00:00:[address] [facility] Varicella (varivax)(chicken pox) 2006-07-15 00:00:[address] [facility] TDAP 2006-07-15 00:00:[address] [facility] Varicella (varivax)(chicken pox) 2006-07-15 00:00:[address] [facility] TDAP 2006-07-15 00:00:[address] [facility] Varicella (varivax)(chicken pox) 2006-07-15 00:00:[address] [facility] TDAP 2006-07-15 00:00:[address] [facility] Varicella (varivax)(chicken pox) 2006-07-15 00:00:[address] [facility] TDAP 2006-07-15 00:00:[address] [facility] Varicella (varivax)(chicken pox) 2006-07-15 00:00:[address] [facility] TDAP 2006-07-15 00:00:[address] [facility] Varicella (varivax)(chicken pox) 2006-07-15 00:00:[address] [facility] TDAP 2006-07-15 00:00:[address] [facility] Varicella (varivax)(chicken pox) 2006-07-15 00:00:[address] [facility] TDAP 2006-07-15 00:00:[address] [facility] Varicella (varivax)(chicken pox) 2006-07-15 00:00:[address] [facility] TDAP 2006-07-15 00:00:[address] [facility] Varicella (varivax)(chicken pox) 2006-07-15 00:00:[address] [facility] TDAP 2006-07-15 00:00:[address] [facility] Varicella (varivax)(chicken pox) 2006-07-15 00:00:[address] [facility] IPV- Inactivated Polio Vaccine 2003-11-08 00:00:00 Completed Mallika Rayold DTaP Unspecified 2003-11-08 00:00:00 Completed Mallika Garcia IPV- Inactivated Polio Vaccine 2003-11-08 00:00:00 Completed Mallika Garcia DTaP Unspecified 2003-11-08 00:00:00 Completed Mallika Rayold TDAP 2003-11-08 00:00:[address] [facility] IPV 2003-11-08 00:00:[address] [facility] TDAP 2003-11-08 00:00:[address] [facility] IPV 2003-11-08 00:00:[address] [facility] TDAP 2003-11-08 00:00:[address] [facility] IPV 2003-11-08 00:00:[address] [facility] TDAP 2003-11-08 00:00:[address] [facility] IPV 2003-11-08 00:00:[address] [facility] TDAP 2003-11-08 00:00:[address] [facility] IPV 2003-11-08 00:00:[address] [facility] TDAP 2003-11-08 00:00:[address] [facility] IPV 2003-11-08 00:00:[address] [facility] TDAP 2003-11-08 00:00:[address] [facility] IPV 2003-11-08 00:00:[address] [facility] TDAP 2003-11-08 00:00:[address] [facility] IPV 2003-11-08 00:00:[address] [facility] TDAP 2003-11-08 00:00:[address] [facility] IPV 2003-11-08 00:00:[address] [facility] TDAP 2003-11-08 00:00:[address] [facility] IPV 2003-11-08 00:00:[address] [facility] TDAP 2003-11-08 00:00:[address] [facility] IPV 2003-11-08 00:00:[address] [facility] TDAP 2003-11-08 00:00:[address] [facility] IPV 2003-11-08 00:00:[address] [facility] TDAP 2003-11-08 00:00:[address] [facility] IPV 2003-11-08 00:00:[address] [facility] IPV- Inactivated Polio Vaccine 2001-11-26 00:00:00 Completed Mallika ybold DTaP Unspecified 2001-11-26 00:00:00 Completed Mallika Rayold Hepatitis B, Adolescent Or Pediatric 2001-11-26 00:00:00 Completed Mallika Rayold MMR- Measles, Mumps, Rubella 2001-11-26 00:00:00 Completed Mallika Garcia IPV- Inactivated Polio Vaccine 2001-11-26 00:00:00 Completed Mallika ybold DTaP Unspecified 2001-11-26 00:00:00 Completed Mallika Rayold Hepatitis B, Adolescent Or Pediatric 2001-11-26 00:00:00 Completed Mallika Rayold MMR- Measles, Mumps, Rubella 2001-11-26 00:00:00 Completed Malliak Andersonybold TDAP 2001-11-26 00:00:[address] [facility] Hep B, Adol or Pedi Dosage 2001-11-26 00:00:[address] [facility] IPV 2001-11-26 00:00:[address] [facility] MMR 2001-11-26 00:00:[address] [facility] TDAP 2001-11-26 00:00:[address] [facility] Hep B, Adol or Pedi Dosage 2001-11-26 00:00:[address] [facility] IPV 2001-11-26 00:00:[address] [facility] MMR 2001-11-26 00:00:[address] [facility] TDAP 2001-11-26 00:00:[address] [facility] Hep B, Adol or Pedi Dosage 2001-11-26 00:00:[address] [facility] IPV 2001-11-26 00:00:[address] [facility] MMR 2001-11-26 00:00:[address] [facility] TDAP 2001-11-26 00:00:[address] [facility] Hep B, Adol or Pedi Dosage 2001-11-26 00:00:[address] [facility] IPV 2001-11-26 00:00:[address] [facility] MMR 2001-11-26 00:00:[address] [facility] TDAP 2001-11-26 00:00:[address] [facility] Hep B, Adol or Pedi Dosage 2001-11-26 00:00:[address] [facility] IPV 2001-11-26 00:00:[address] [facility] MMR 2001-11-26 00:00:[address] [facility] TDAP 2001-11-26 00:00:[address] [facility] Hep B, Adol or Pedi Dosage 2001-11-26 00:00:[address] [facility] IPV 2001-11-26 00:00:[address] [facility] MMR 2001-11-26 00:00:[address] [facility] TDAP 2001-11-26 00:00:[address] [facility] Hep B, Adol or Pedi Dosage 2001-11-26 00:00:[address] [facility] IPV 2001-11-26 00:00:[address] [facility] MMR 2001-11-26 00:00:[address] [facility] TDAP 2001-11-26 00:00:[address] [facility] Hep B, Adol or Pedi Dosage 2001-11-26 00:00:[address] [facility] IPV 2001-11-26 00:00:[address] [facility] MMR 2001-11-26 00:00:[address] [facility] TDAP 2001-11-26 00:00:[address] [facility] Hep B, Adol or Pedi Dosage 2001-11-26 00:00:[address] [facility] IPV 2001-11-26 00:00:[address] [facility] MMR 2001-11-26 00:00:[address] [facility] TDAP 2001-11-26 00:00:[address] [facility] Hep B, Adol or Pedi Dosage 2001-11-26 00:00:[address] [facility] IPV 2001-11-26 00:00:[address] [facility] MMR 2001-11-26 00:00:[address] [facility] TDAP 2001-11-26 00:00:[address] [facility] Hep B, Adol or Pedi Dosage 2001-11-26 00:00:[address] [facility] IPV 2001-11-26 00:00:[address] [facility] MMR 2001-11-26 00:00:[address] [facility] TDAP 2001-11-26 00:00:[address] [facility] Hep B, Adol or Pedi Dosage 2001-11-26 00:00:[address] [facility] IPV 2001-11-26 00:00:[address] [facility] MMR 2001-11-26 00:00:[address] [facility] TDAP 2001-11-26 00:00:[address] [facility] Hep B, Adol or Pedi Dosage 2001-11-26 00:00:[address] [facility] IPV 2001-11-26 00:00:[address] [facility] MMR 2001-11-26 00:00:[address] [facility] OPV- Oral Polio Vaccine 1999-03-07 00:00:00 Completed Mallika Garcia Varicella Vaccine 1999-03-07 00:00:00 Completed Mallika Garcia DTaP Unspecified 1999-03-07 00:00:00 Completed Mallika Garcia Hepatitis B, Adolescent Or Pediatric 1999-03-07 00:00:00 Completed Mallika Garcia HIB- Haemophilus Influenzae Type B 1999-03-07 00:00:00 Completed Mallika Garcia MMR- Measles, Mumps, Rubella 1999-03-07 00:00:00 Completed Mallika Garcia OPV- Oral Polio Vaccine 1999-03-07 00:00:00 Completed Mallika Garcia Varicella Vaccine 1999-03-07 00:00:00 Completed Mallika Garcia DTaP Unspecified 1999-03-07 00:00:00 Completed Mallika Garcia Hepatitis B, Adolescent Or Pediatric 1999-03-07 00:00:00 Completed Mallika Garcia HIB- Haemophilus Influenzae Type B 1999-03-07 00:00:00 Completed Mallika Garcia MMR- Measles, Mumps, Rubella 1999-03-07 00:00:00 Completed Mallika Garcia TDAP 1999-03-07 00:00:[address] [facility] Hep B, Adol or Pedi Dosage 1999-03-07 00:00:[address] [facility] Heamophilus Influenza B 1999-03-07 00:00:[address] [facility] MMR 1999-03-07 00:00:[address] [facility] Polio (IPV/OPV) 1999-03-07 00:00:[address] [facility] Varicella (varivax)(chicken pox) 1999-03-07 00:00:[address] [facility] TDAP 1999-03-07 00:00:[address] [facility] Hep B, Adol or Pedi Dosage 1999-03-07 00:00:[address] [facility] Heamophilus Influenza B 1999-03-07 00:00:[address] [facility] MMR 1999-03-07 00:00:[address] [facility] Polio (IPV/OPV) 1999-03-07 00:00:[address] [facility] Varicella (varivax)(chicken pox) 1999-03-07 00:00:[address] [facility] TDAP 1999-03-07 00:00:[address] [facility] Hep B, Adol or Pedi Dosage 1999-03-07 00:00:[address] [facility] Heamophilus Influenza B 1999-03-07 00:00:[address] [facility] MMR 1999-03-07 00:00:[address] [facility] Polio (IPV/OPV) 1999-03-07 00:00:[address] [facility] Varicella (varivax)(chicken pox) 1999-03-07 00:00:[address] [facility] TDAP 1999-03-07 00:00:[address] [facility] Hep B, Adol or Pedi Dosage 1999-03-07 00:00:[address] [facility] Heamophilus Influenza B 1999-03-07 00:00:[address] [facility] MMR 1999-03-07 00:00:[address] [facility] Polio (IPV/OPV) 1999-03-07 00:00:[address] [facility] Varicella (varivax)(chicken pox) 1999-03-07 00:00:[address] [facility] TDAP 1999-03-07 00:00:[address] [facility] Hep B, Adol or Pedi Dosage 1999-03-07 00:00:[address] [facility] Heamophilus Influenza B 1999-03-07 00:00:[address] [facility] MMR 1999-03-07 00:00:[address] [facility] Polio (IPV/OPV) 1999-03-07 00:00:[address] [facility] Varicella (varivax)(chicken pox) 1999-03-07 00:00:[address] [facility] TDAP 1999-03-07 00:00:[address] [facility] Hep B, Adol or Pedi Dosage 1999-03-07 00:00:[address] [facility] Heamophilus Influenza B 1999-03-07 00:00:[address] [facility] MMR 1999-03-07 00:00:[address] [facility] Polio (IPV/OPV) 1999-03-07 00:00:[address] [facility] Varicella (varivax)(chicken pox) 1999-03-07 00:00:[address] [facility] TDAP 1999-03-07 00:00:[address] [facility] Hep B, Adol or Pedi Dosage 1999-03-07 00:00:[address] [facility] Heamophilus Influenza B 1999-03-07 00:00:[address] [facility] MMR 1999-03-07 00:00:[address] [facility] Polio (IPV/OPV) 1999-03-07 00:00:[address] [facility] Varicella (varivax)(chicken pox) 1999-03-07 00:00:[address] [facility] TDAP 1999-03-07 00:00:[address] [facility] Hep B, Adol or Pedi Dosage 1999-03-07 00:00:[address] [facility] Heamophilus Influenza B 1999-03-07 00:00:[address] [facility] MMR 1999-03-07 00:00:[address] [facility] Polio (IPV/OPV) 1999-03-07 00:00:[address] [facility] Varicella (varivax)(chicken pox) 1999-03-07 00:00:[address] [facility] TDAP 1999-03-07 00:00:[address] [facility] Hep B, Adol or Pedi Dosage 1999-03-07 00:00:[address] [facility] Heamophilus Influenza B 1999-03-07 00:00:[address] [facility] MMR 1999-03-07 00:00:[address] [facility] Polio (IPV/OPV) 1999-03-07 00:00:[address] [facility] Varicella (varivax)(chicken pox) 1999-03-07 00:00:[address] [facility] TDAP 1999-03-07 00:00:[address] [facility] Hep B, Adol or Pedi Dosage 1999-03-07 00:00:[address] [facility] Heamophilus Influenza B 1999-03-07 00:00:[address] [facility] MMR 1999-03-07 00:00:[address] [facility] Polio (IPV/OPV) 1999-03-07 00:00:[address] [facility] Varicella (varivax)(chicken pox) 1999-03-07 00:00:[address] [facility] TDAP 1999-03-07 00:00:[address] [facility] Hep B, Adol or Pedi Dosage 1999-03-07 00:00:[address] [facility] Heamophilus Influenza B 1999-03-07 00:00:[address] [facility] MMR 1999-03-07 00:00:[address] [facility] Polio (IPV/OPV) 1999-03-07 00:00:[address] [facility] Varicella (varivax)(chicken pox) 1999-03-07 00:00:[address] [facility] TDAP 1999-03-07 00:00:[address] [facility] Hep B, Adol or Pedi Dosage 1999-03-07 00:00:[address] [facility] Heamophilus Influenza B 1999-03-07 00:00:[address] [facility] MMR 1999-03-07 00:00:[address] [facility] Polio (IPV/OPV) 1999-03-07 00:00:[address] [facility] Varicella (varivax)(chicken pox) 1999-03-07 00:00:[address] [facility] TDAP 1999-03-07 00:00:[address] [facility] Hep B, Adol or Pedi Dosage 1999-03-07 00:00:[address] [facility] Heamophilus Influenza B 1999-03-07 00:00:[address] [facility] MMR 1999-03-07 00:00:[address] [facility] Polio (IPV/OPV) 1999-03-07 00:00:[address] [facility] Varicella (varivax)(chicken pox) 1999-03-07 00:00:[address] [facility] IPV 1998-04-21 00:00:[address] [facility] HIB 3 Dose Schedule 1998-04-21 00:00:[address] [facility] DTP 1998-04-21 00:00:[address] [facility] IPV 1998-04-21 00:00:[address] [facility] HIB 3 Dose Schedule 1998-04-21 00:00:[address] [facility] DTP 1998-04-21 00:00:[address] [facility] IPV 1998-04-21 00:00:[address] [facility] HIB 3 Dose Schedule 1998-04-21 00:00:[address] [facility] DTP 1998-04-21 00:00:[address] [facility] IPV 1998-04-21 00:00:[address] [facility] HIB 3 Dose Schedule 1998-04-21 00:00:[address] [facility] DTP 1998-04-21 00:00:[address] [facility] IPV 1998-04-21 00:00:[address] [facility] HIB 3 Dose Schedule 1998-04-21 00:00:[address] [facility] DTP 1998-04-21 00:00:[address] [facility] IPV 1998-04-21 00:00:[address] [facility] IPV- Inactivated Polio Vaccine 1998-04-21 00:00:00 Completed Mallika Garcia DTP- Diphtheria,Tetanus,P ertussis 1998-04-21 00:00:00 Completed Mallika Garcia Hib, unspecified formulation 1998-04-21 00:00:00 Completed Mallika Garcia IPV- Inactivated Polio Vaccine 1998-04-21 00:00:00 Completed Mallika Garcia DTP- Diphtheria,Tetanus,P ertussis 1998-04-21 00:00:00 Completed Mallika Garcia Hib, unspecified formulation 1998-04-21 00:00:00 Completed Mallika Garcia HIB 3 Dose Schedule 1998-04-21 00:00:[address] [facility] DTP 1998-04-21 00:00:[address] [facility] IPV 1998-04-21 00:00:[address] [facility] HIB 3 Dose Schedule 1998-04-21 00:00:[address] [facility] DTP 1998-04-21 00:00:[address] [facility] IPV 1998-04-21 00:00:[address] [facility] HIB 3 Dose Schedule 1998-04-21 00:00:[address] [facility] DTP 1998-04-21 00:00:[address] [facility] IPV 1998-04-21 00:00:[address] [facility] HIB 3 Dose Schedule 1998-04-21 00:00:[address] [facility] DTP 1998-04-21 00:00:[address] [facility] IPV 1998-04-21 00:00:[address] [facility] HIB 3 Dose Schedule 1998-04-21 00:00:[address] [facility] DTP 1998-04-21 00:00:[address] [facility] IPV 1998-04-21 00:00:[address] [facility] HIB 3 Dose Schedule 1998-04-21 00:00:[address] [facility] DTP 1998-04-21 00:00:[address] [facility] IPV 1998-04-21 00:00:[address] [facility] HIB 3 Dose Schedule 1998-04-21 00:00:[address] [facility] DTP 1998-04-21 00:00:[address] [facility] IPV 1998-04-21 00:00:[address] [facility] HIB 3 Dose Schedule 1998-04-21 00:00:[address] [facility] DTP 1998-04-21 00:00:[address] [facility] HIB 3 Dose Schedule 1998-01-27 00:00:[address] [facility] TDAP 1998-01-27 00:00:[address] [facility] IPV 1998-01-27 00:00:[address] [facility] HIB 3 Dose Schedule 1998-01-27 00:00:[address] [facility] TDAP 1998-01-27 00:00:[address] [facility] IPV 1998-01-27 00:00:[address] [facility] HIB 3 Dose Schedule 1998-01-27 00:00:[address] [facility] TDAP 1998-01-27 00:00:[address] [facility] IPV 1998-01-27 00:00:[address] [facility] HIB 3 Dose Schedule 1998-01-27 00:00:[address] [facility] TDAP 1998-01-27 00:00:[address] [facility] IPV 1998-01-27 00:00:[address] [facility] HIB 3 Dose Schedule 1998-01-27 00:00:[address] [facility] TDAP 1998-01-27 00:00:[address] [facility] IPV 1998-01-27 00:00:[address] [facility] HIB 3 Dose Schedule 1998-01-27 00:00:[address] [facility] TDAP 1998-01-27 00:00:[address] [facility] IPV 1998-01-27 00:00:[address] [facility] HIB 3 Dose Schedule 1998-01-27 00:00:[address] [facility] TDAP 1998-01-27 00:00:[address] [facility] IPV 1998-01-27 00:00:[address] [facility] HIB 3 Dose Schedule 1998-01-27 00:00:[address] [facility] TDAP 1998-01-27 00:00:[address] [facility] IPV 1998-01-27 00:00:[address] [facility] HIB 3 Dose Schedule 1998-01-27 00:00:[address] [facility] TDAP 1998-01-27 00:00:[address] [facility] IPV 1998-01-27 00:00:[address] [facility] HIB 3 Dose Schedule 1998-01-27 00:00:[address] [facility] TDAP 1998-01-27 00:00:[address] [facility] IPV 1998-01-27 00:00:[address] [facility] HIB 3 Dose Schedule 1998-01-27 00:00:[address] [facility] TDAP 1998-01-27 00:00:[address] [facility] IPV 1998-01-27 00:00:[address] [facility] HIB 3 Dose Schedule 1998-01-27 00:00:[address] [facility] [facility] TDAP 1998-01-27 00:00:[address] [facility] [facility] IPV 1998-01-27 00:00:[address] [facility] HIB 3 Dose Schedule 1998-01-27 00:00:[address] [facility] TDAP 1998-01-27 00:00:[address] [facility] IPV 1998-01-27 00:00:[address] [facility] DTaP Unspecified 1998-01-27 00:00:00 Completed Mallika Garcia Hib, unspecified formulation 1998-01-27 00:00:00 Completed Mallika Garcia IPV- Inactivated Polio Vaccine 1998-01-27 00:00:00 Completed Mallika Garcia DTaP Unspecified 1998-01-27 00:00:00 Completed Mallika Garcia Hib, unspecified formulation 1998-01-27 00:00:00 Completed Mallika Garcia IPV- Inactivated Polio Vaccine 1998-01-27 00:00:00 Completed Mallika Garcia Hep B, Adol or Pedi Dosage 1997 00:00:[address] [facility] Hep B, Adol or Pedi Dosage 1997 00:00:[address] [facility] Hep B, Adol or Pedi Dosage 1997 00:00:[address] [facility] Hep B, Adol or Pedi Dosage 1997 00:00:[address] [facility] Hep B, Adol or Pedi Dosage 1997 00:00:[address] [facility] Hep B, Adol or Pedi Dosage 1997 00:00:[address] [facility] Hep B, Adol or Pedi Dosage 1997 00:00:[address] [facility] Hep B, Adol or Pedi Dosage 1997 00:00:[address] [facility] Hep B, Adol or Pedi Dosage 1997 00:00:[address] [facility] Hep B, Adol or Pedi Dosage 1997 00:00:[address] [facility] Hep B, Adol or Pedi Dosage 1997 00:00:[address] [facility] Hep B, Adol or Pedi Dosage 1997 00:00:[address] [facility] Hep B, Adol or Pedi Dosage 1997 00:00:[address] [facility] Hepatitis B, Adolescent Or Pediatric 1997 00:00:00 Completed Mallika Garcia Hepatitis B, Adolescent Or Pediatric 1997 00:00:00 Completed Mallika Garcia Hep B, Adol or Pedi Dosage 1997 00:00:[address] [facility] Hep B, Adol or Pedi Dosage 1997 00:00:[address] [facility] Hep B, Adol or Pedi Dosage 1997 00:00:[address] [facility] Hep B, Adol or Pedi Dosage 1997 00:00:[address] [facility] Hep B, Adol or Pedi Dosage 1997 00:00:[address] [facility] Hep B, Adol or Pedi Dosage 1997 00:00:[address] [facility] Hep B, Adol or Pedi Dosage 1997 00:00:[address] [facility] Hep B, Adol or Pedi Dosage 1997 00:00:[address] [facility] Hep B, Adol or Pedi Dosage 1997 00:00:[address] [facility] Hep B, Adol or Pedi Dosage 1997 00:00:[address] [facility] Hep B, Adol or Pedi Dosage 1997 00:00:[address] [facility] Hep B, Adol or Pedi Dosage 1997 00:00:[address] [facility] Hep B, Adol or Pedi Dosage 1997 00:00:[address] [facility] Hepatitis B, Adolescent Or Pediatric 1997 00:00:00 Completed Mallika Garcia Hepatitis B, Adolescent Or Pediatric 1997 00:00:00 Completed Mallika Garcia TDAP Unknown Completed [facility] DTP Unknown Completed [facility] HEPATITIS A Unknown Completed [facility] Hep B, Adol or Pedi Dosage Unknown Completed [facility] Heamophilus Influenza B Unknown Completed [facility] HPV Unknown Completed [facility] Influenza Virus Vaccine (3+ yrs) Unknown Completed [facility] IPV Unknown Completed [facility] Meningococcal Polysaccharide (groups A, C, Y and W-135) conjugate vaccine (MCV4P) Unknown Completed [facility] MMR Unknown Completed [facility] Polio (IPV/OPV) Unknown Completed [facility] Varicella (varivax)(chicken pox) Unknown Completed [facility] HPV9 [address] [facility] SARS-COV-2 COVID-19 PFIZER VACCINE Unknown Completed [facility] HIB 3 Dose Schedule Unknown Completed [facility] TDAP Unknown Completed [facility] DTP Unknown Completed [facility] HEPATITIS A Unknown Completed [facility] Hep B, Adol or Pedi Dosage Unknown Completed [facility] Heamophilus Influenza B Unknown Completed [facility] HPV Unknown Completed [facility] Influenza Virus Vaccine (3+ yrs) Unknown Completed [facility] IPV Unknown Completed [facility] Meningococcal Polysaccharide (groups A, C, Y and W-135) conjugate vaccine (MCV4P) Unknown Completed [facility] MMR Unknown Completed [facility] Polio (IPV/OPV) Unknown Completed [facility] Varicella (varivax)(chicken pox) Unknown Completed [facility] HPV9 [address] [facility] SARS-COV-2 COVID-19 PFIZER VACCINE Unknown Completed [facility] HIB 3 Dose Schedule Unknown Completed [facility] DTaP Unspecified Unknown Completed Pernell Avendano External DTP- Diphtheria,Tetanus,P ertussis Unknown Completed Mallika Telles Influenza, Seasonal, Injectable, Preservative Free Unknown Completed Mallika Avendano External Influenza, Seasonal, Injectable Unknown Completed Mallika Telles HEPATITIS A- PEDI/ADOL Unknown Completed Mallika Telles Hepatitis B, Adolescent Or Pediatric Unknown Completed Mallika Avendano External Hib, unspecified formulation Unknown Completed Mallika vAendano External HIB- Haemophilus Influenzae Type B Unknown Completed Mallika Avendano External HPV 4 (Human Papillomavirus) Unknown Completed Mallika nance - External Meningococcal Vaccine- Conjugate(Menactra) Unknown Completed Mallika Avendano External MMR- Measles, Mumps, Rubella Unknown Completed Mallika Avendano External IPV- Inactivated Polio Vaccine Unknown Completed Mallika Avendano External OPV- Oral Polio Vaccine Unknown Completed Mallika Avendano External Tdap- (Boostrix, Adacel) Unknown Completed Mallika Avendano External Varicella Vaccine Unknown Completed Arthur Garcia - External HIB PRP-OMP (Pedvax) Unknown Completed Mallika Avendano External HPV 9 (Human Papillomavirus) Unknown Completed Mallika Stack ld - External Polio Vaccine Unknown Completed Mallika Avendano External Influenza, Injectable, Mdck, Quadrivalent With Preservative Unknown Completed Mallika Avendano External DTaP Unspecified Unknown Completed Pernell Garcia - External DTP- Diphtheria,Tetanus,P ertussis Unknown Completed [facility] External Influenza, Seasonal, Injectable, Preservative Free Unknown Completed [facility] External Influenza, Seasonal, Injectable Unknown Completed [facility] External HEPATITIS A- PEDI/ADOL Unknown Completed [facility] External Hepatitis B, Adolescent Or Pediatric Unknown Completed [facility] - External Hib, unspecified formulation Unknown Completed [facility] External HIB- Haemophilus Influenzae Type B Unknown Completed [facility] - External HPV 4 (Human Papillomavirus) Unknown Completed [facility] - External Meningococcal Vaccine- Conjugate(Menactra) [facility] M[facility]- Measles, Mumps, Rubella Unknown Completed [facility] External IPV- Inactivated Polio Vaccine Unknown Completed [facility] External OPV- Oral Polio Vaccine Unknown Completed [facility] External Tdap- (Boostrix, Adacel) Unknown Completed [facility] External Varicella Vaccine Unknown Completed [facility] - External HIB PRP-OMP (Pedvax) Unknown Completed [facility] External HPV 9 (Human Papillomavirus) Unknown Completed [facility] ld - External Polio Vaccine Unknown Completed [facility] External Influenza, Injectable, Mdck, Quadrivalent With Preservative Unknown Completed [facility] External Influenza Virus Vaccine, Unspecified Formulation Unknown Completed [facility] - External DTaP Unspecified Unknown Completed [facility] External DTP- Diphtheria,Tetanus,P ertussis Unknown Completed [facility] External Influenza, Seasonal, Injectable, Preservative Free Unknown [facility] Influenza, Seasonal, Injectable Unknown Completed [facility] External HEPATITIS A- PEDI/ADOL Unknown Completed [facility] External Hepatitis B, Adolescent Or Pediatric Unknown Completed [facility] External Hib, unspecified formulation Unknown Completed [facility] External HIB- Haemophilus Influenzae Type B Unknown Completed [facility] - External HPV 4 (Human Papillomavirus) Unknown Completed [facility] ld - External Meningococcal Vaccine- Conjugate(Menactra) Unknown [facility] MMR- Measles, Mumps, Rubella Unknown Completed [facility] External IPV- Inactivated Polio Vaccine [facility]- [facility]io [facility]ine [facility] Completed [facility] - External Tdap- (Boostrix, Adacel) Unknown Completed [facility] External [facility]ella [facility]ine [facility] (Pedvax) Unknown Completed [facility] External HPV 9 (Human Papillomavirus) Unknown Completed [facility] - External Polio Vaccine Unknown Completed [facility] - External Influenza, Injectable, Mdck, Quadrivalent With Preservative Unknown Completed [facility] External Influenza Virus Vaccine, Unspecified Formulation Unknown Completed [facility] - External DTaP Unspecified Unknown Completed [facility] External DTP- Diphtheria,Tetanus,P ertussis Unknown Completed [facility] External Influenza, Seasonal, Injectable, Preservative Free Unknown Completed [facility] External Influenza, Seasonal, Injectable Unknown Completed [facility] External HEPATITIS A- PEDI/ADOL Unknown Completed [facility] External Hepatitis B, Adolescent Or Pediatric Unknown Completed [facility] - External Hib, unspecified formulation Unknown Completed [facility] External HIB- Haemophilus Influenzae Type B Unknown Completed [facility] External HPV 4 (Human Papillomavirus) Unknown Completed [facility] - External Meningococcal Vaccine- Conjugate(Menactra) Unknown [facility] MMR- Measles, Mumps, Rubella Unknown Completed [facility] External IPV- Inactivated Polio Vaccine Unknown Completed [facility] External OPV- Oral Polio Vaccine Unknown Completed [facility] External Tdap- (Boostrix, Adacel) Unknown Completed [facility] External Varicella Vaccine [facility] PR[facility]-OMP (Pedvax) Unknown Completed [facility] External HPV 9 (Human Papillomavirus) Unknown Completed [facility] - External Polio Vaccine Unknown Completed [facility] External Influenza, Injectable, Mdck, Quadrivalent With Preservative Unknown Completed [facility] External Influenza Virus Vaccine, Unspecified Formulation Unknown Completed [facility] - External DTaP Unspecified Unknown Completed [facility] External DTP- Diphtheria,Tetanus,P ertussis Unknown Completed Mallika Seybold - External Influenza, Seasonal, Injectable, Preservative Free Unknown Completed [facility] External Influenza, Seasonal, Injectable Unknown Completed [facility] External HEPATITIS A- PEDI/ADOL Unknown Completed [facility] External Hepatitis B, Adolescent Or Pediatric Unknown Completed [facility] External Hib, unspecified formulation Unknown Completed [facility] External HIB- Haemophilus Influenzae Type B Unknown Completed [facility] External HPV 4 (Human Papillomavirus) Unknown Completed [facility] - External Meningococcal Vaccine- Conjugate(Menactra) Unknown [facility] MMR- Measles, Mumps, Rubella Unknown Completed [facility] External IPV- Inactivated Polio Vaccine Unknown Completed [facility] External OPV- Oral Polio Vaccine Unknown Completed [facility] External Tdap- (Boostrix, Adacel) Unknown Completed [facility] External Varicella Vaccine Unknown Completed [facility] - External HIB PRP-OMP (Pedvax) Unknown Completed [facility] External HPV 9 (Human Papillomavirus) Unknown Completed [facility] ld - External Polio Vaccine Unknown Completed [facility] External Influenza, Injectable, Mdck, Quadrivalent With Preservative Unknown Completed [facility] External Influenza Virus Vaccine, Unspecified Formulation Unknown Completed [facility] External DTaP Unspecified Unknown Completed [facility] External DTP- Diphtheria,Tetanus,P ertussis Unknown Completed [facility] External Influenza, Seasonal, Injectable, Preservative Free Unknown Completed [facility] External Influenza, Seasonal, Injectable Unknown Completed [facility] External HEPATITIS A- PEDI/ADOL Unknown Completed [facility] External Hepatitis B, Adolescent Or Pediatric Unknown Completed [facility] External Hib, unspecified formulation Unknown Completed [facility] External HIB- Haemophilus Influenzae Type B Unknown Completed [facility] External HPV 4 (Human Papillomavirus) Unknown Completed [facility] ld - External Meningococcal Vaccine- Conjugate(Menactra) Unknown [facility] MMR- Measles, Mumps, Rubella Unknown Completed [facility] External IPV- Inactivated Polio Vaccine Unknown Completed [facility] - External OPV- Oral Polio Vaccine Unknown Completed Mallika Rayold - External Tdap- (Boostrix, Adacel) Unknown Completed Mallika Sevishunkalpana - External Varicella Vaccine Unknown Completed [facility]isco [facility]ier [facility] - External HIB PRP-OMP (Pedvax) Unknown Completed Mallikadanny Rayold - External HPV 9 (Human Papillomavirus) Unknown Completed Mallikadanny Raymoira ld - External Polio Vaccine Unknown Completed Mallika Florold - External Influenza, Injectable, Mdck, Quadrivalent With Preservative Unknown Completed Mallika Rayold - External Influenza Virus Vaccine, Unspecified Formulation Unknown Completed Mallika Rayold - External Vital Signs Vital Name Observation Time Observation Value Comments S ource Systolic blood pressure 2024-01-24 15:10:00 107 mm[Hg] Mallika Rayo ld - External Diastolic blood pressure 2024-01-24 15:10:00 72 mm[Hg] Mallika Rayo ld - External Heart rate 2024-01-24 15:10:00 84 /min Thuy shearer Seybold - External Body temperature 2024-01-24 15:10:00 36.72 Anny Mallika Andersonybold - External Respiratory rate 2024-01-24 15:10:00 16 /min Mallika Andersonybold - External Body height 2024-01-24 15:10:00 165.1 cm Selma ey Seybold - External Body weight 2024-01-24 15:10:00 64.048 kg Selma ey Seybold - External BMI 2024-01-24 15:10:00 23.50 kg/m2 Selma francisco javier Seybold - External Oxygen saturation in Arterial blood by Pulse oximetry 2024-01-24 15:10:00 98 /min Mallika Rayo ld - External Systolic blood pressure 2023-11-12 18:57:00 112 mm[Hg] Mallika Rayo ld - External Diastolic blood pressure 2023-11-12 18:57:00 78 mm[Hg] Mallika Andersonybo ld - External Heart rate 2023-11-12 18:57:00 85 /min Kelse y Seybold - External Respiratory rate 2023-11-12 18:57:00 16 /min Mallika Andersonybold - External Body height 2023-11-12 18:57:00 165.1 cm Selma ey Seybold - External Body weight 2023-11-12 18:57:00 62.052 kg Selma ey Seybold - External BMI 2023-11-12 18:57:00 22.76 kg/m2 Selma ey Seybold - External Systolic blood pressure 2023-11-11 13:50:00 106 mm[Hg] Mallika Andersonybo ld - External Diastolic blood pressure 2023-11-11 13:50:00 68 mm[Hg] Mallika Andersonybo ld - External Heart rate 2023-11-11 13:50:00 86 /min Kel y Seybold - External Body temperature 2023-11-11 13:50:00 36.5 Anny Mallika Seybold - External Respiratory rate 2023-11-11 13:50:00 14 /min Mallika Andersonybold - External Body height 2023-11-11 13:50:00 165.1 cm Selma ey Seybold - External Body weight 2023-11-11 13:50:00 63.957 kg Selma ey Seybold - External BMI 2023-11-11 13:50:00 23.46 kg/m2 Selma ey Seybold - External Systolic blood pressure 2023-09-18 20:08:00 90 mm[Hg] Mallika Seybo ld - External Diastolic blood pressure 2023-09-18 20:08:00 66 mm[Hg] Mallika Andersonybo ld - External Body height 2023-09-18 20:08:00 165.1 cm Selma ey Seybold - External Body weight 2023-09-18 20:08:00 60.328 kg Selma ey Seybold - External BMI 2023-09-18 20:08:00 22.13 kg/m2 Selma ey Seybold - External Systolic blood pressure 2023-09-13 13:59:00 116 mm[Hg] [facility] Diastolic blood pressure 2023-09-13 13:59:00 94 mm[Hg] [facility] Heart rate 2023-09-13 13:59:00 106 /min [facility] Body temperature 2023-09-13 13:59:[address] [facility] Respiratory rate 2023-09-13 13:59:00 20 /min [facility] Body height 2023-09-13 13:59:00 165.1 cm [facility] 2023-09-13 13:59:00 58.968 kg [facility] BMI 2023-09-13 13:59:00 21.63 kg/m2 [facility] Systolic blood pressure 2023-06-10 20:51:00 110 mm[Hg] Mallika Seybo ld - External Diastolic blood pressure 2023-06-10 20:51:00 70 mm[Hg] Mallika Seybo ld - External Heart rate 2023-06-10 20:51:00 87 /min Kelse y Seybold - External Body temperature 2023-06-10 20:51:00 36.67 Anny Mallika Seybold - External Respiratory rate 2023-06-10 20:51:00 14 /min Mallika Seybold - External Body height 2023-06-10 20:51:00 165.1 cm Selma ey Seybold - External Body weight 2023-06-10 20:51:00 61.236 kg Semla ey Seybold - External BMI 2023-06-10 20:51:00 22.47 kg/m2 Selma ey Seybold - External Systolic blood pressure 2022-09-26 15:22:00 120 mm[Hg] [facility] Diastolic blood pressure 2022-09-26 15:22:00 71 mm[Hg] [facility] Heart rate 2022-09-26 15:22:00 87 /min [facility] Respiratory rate 2022-09-26 15:22:00 18 /min [facility] Body height 2022-09-26 15:22:00 165.1 cm [facility] Body weight 2022-09-26 15:22:00 60.782 kg [facility] BMI 2022-09-26 15:22:00 22.30 kg/m2 [facility] Systolic blood pressure 2022-09-14 15:13:00 100 mm[Hg] [facility] Diastolic blood pressure 2022-09-14 15:13:00 66 mm[Hg] [facility] Heart rate 2022-09-14 15:13:00 76 /min [facility] Body temperature 2022-09-14 15:13:[address] [facility] Respiratory rate 2022-09-14 15:13:00 18 /min [facility] Body height 2022-09-14 15:13:00 165.1 cm [facility] Body weight 2022-09-14 15:13:00 61.236 kg [facility] BMI 2022-09-14 15:13:00 22.47 kg/m2 [facility] Systolic blood pressure 2022-06-06 19:28:00 113 mm[Hg] [facility] Diastolic blood pressure 2022-06-06 19:28:00 76 mm[Hg] [facility] Heart rate 2022-06-06 19:28:00 88 /min [facility] Body temperature 2022-06-06 19:28:[address] [facility] Body height 2022-06-06 19:28:00 152.4 cm [facility] Body weight 2022-06-06 19:28:00 62.596 kg [facility] BMI 2022-06-06 19:28:00 26.95 kg/m2 [facility] Systolic blood pressure 2022-05-21 19:28:00 116 mm[Hg] [facility] Diastolic blood pressure 2022-05-21 19:28:00 81 mm[Hg] [facility] Heart rate 2022-05-21 19:28:00 88 /min [facility] Body temperature 2022-05-21 19:28:[address] [facility] Respiratory rate 2022-05-21 19:28:00 16 /min [facility] Body height 2022-05-21 19:28:00 152.4 cm [facility] Body weight 2022-05-21 19:28:00 61.508 kg [facility] BMI 2022-05-21 19:28:00 26.48 kg/m2 [facility] Oxygen saturation in Arterial blood by Pulse oximetry 2022-05-21 19:28:00 97 /min [facility] Systolic blood pressure 2021-12-06 20:03:00 105 mm[Hg] [facility] Diastolic blood pressure 2021-12-06 20:03:00 71 mm[Hg] [facility] Heart rate 2021-12-06 20:03:00 72 /min [facility] Body temperature 2021-12-06 20:03:[address] [facility] Respiratory rate 2021-12-06 20:03:00 18 /min [facility] Body height 2021-12-06 20:03:00 157.5 cm [facility] Body weight 2021-12-06 20:03:00 57.698 kg [facility] BMI 2021-12-06 20:03:00 23.27 kg/m2 [facility] Systolic blood pressure 2021-12-06 18:42:00 98 mm[Hg] Mallika Seybo ld Diastolic blood pressure 2021-12-06 18:42:00 62 mm[Hg] Mallika Seybo ld Heart rate 2021-12-06 18:42:00 83 /min Pernellse y Radha Body temperature 2021-12-06 18:42:00 36.56 Anny Mallika Andersonybold Respiratory rate 2021-12-06 18:42:00 14 /min Mallika Garcia Body height 2021-12-06 18:42:00 165.1 cm Selma Garcia Body weight 2021-12-06 18:42:00 58.06 kg Selma francisco javier Andersonybold BMI 2021-12-06 18:42:00 21.30 kg/m2 Selma francisco javier Andersonybold Systolic blood pressure 2021-12-04 20:58:00 113 mm[Hg] Mallika Seybo ld Diastolic blood pressure 2021-12-04 20:58:00 74 mm[Hg] Mallika ybo ld Heart rate 2021-12-04 20:58:00 83 /min Kelse y ybold Body temperature 2021-12-04 20:58:00 36.83 Anny Mallika Seybold Respiratory rate 2021-12-04 20:58:00 14 /min Mallika Seybold Body height 2021-12-04 20:58:00 165.1 cm Selma ey Seybold Body weight 2021-12-04 20:58:00 58.06 kg Selma ey Seybold BMI 2021-12-04 20:58:00 21.30 kg/m2 Selma ey Seybold Systolic blood pressure 2021-10-16 20:21:00 110 mm[Hg] Mallika Seybo ld Diastolic blood pressure 2021-10-16 20:21:00 76 mm[Hg] Mallika Seybo ld Heart rate 2021-10-16 20:21:00 99 /min Kelse y ybold Body temperature 2021-10-16 20:21:00 37.17 Anny Mallika Andersonybold Respiratory rate 2021-10-16 20:21:00 16 /min Mallika Andersonybold Body height 2021-10-16 20:21:00 165.1 cm Selma ey Seybold Body weight 2021-10-16 20:21:00 58.06 kg [place] ey Seybold BMI 2021-10-16 20:21:00 21.30 kg/m2 [place] Seybold Systolic (mm Hg) 2022-01-02 18:10:00 [facility] Diastolic (mm Hg) 2022-01-02 18:10:00 [facility] Heart Rate 2022-01-02 18:10:00 [facility] Respitory Rate 2022-01-02 18:10:00 [facility] Height 2022-01-02 18:10:00 163.83 cm [facility] Weight 2022-01-02 18:10:00 [facility] BMI Calculated 2022-01-02 18:10:00 [facility] Procedures Procedure Date / Time Performed Performing Clinician Source TRANSTHORACIC ECHO (TTE) COMPLETE W/ CONTRAST 2023-09-13 16:15:00 Toi Peoples [facility] PATIENT FINANCIAL POLICY 2023-09-13 15:27:14 Doctor Unassigned, [place] [facility] CONSENT/REFUSAL FOR DIAGNOSIS AND TREATMENT 2023-09-13 15:26:47 Doctor Unassigned, [place] [facility] ASSIGNMENT OF BENEFITS 2023-09-13 15:26:36 Docto r Unassigned, [place] [facility] EKG-12 LEAD 2023-09-13 14:34:30 Toi Peoples [facility] CONSENT/REFUSAL FOR DIAGNOSIS AND TREATMENT 2023-09-13 13:53:58 Doctor Unassigned, [place] [facility] CONSENT FOR CONTRACEPTION 2022-09-26 06:01:00 Doctor Unassigned, [place] [facility] US PELVIS COMPLETE WITH TRANSVAGINAL 2022-05-31 22:45:[address] [facility] CBC WITH DIFF 2022-05-21 21:04:[address] [facility] GC & CHLAMYDIA AMPLIFIED ASSAY 2022-05-21 20:10:[address] [facility] GALV ONLY - VAGINAL PATHOGENS BY NUCLEIC ACID TESTING 2022-05-21 20:10:[address] [facility] POCT TEST 2022-05-21 00:00:[address] [facility] GARDASIL 9 (HPV 9V) VACCINE 2021-12-06 20:31:[address] [facility] Encounters Start Date/Time End Date/Time Encounter Type Admission Type Attending [facility] Care Facility Care Department Encounter ID Source 2025-03-02 16:24:25 Emergency [facility] [id number] [facility] ent 2025-04-06 10:30:00 2025-04-06 10:30:00 Outpatient COLIN COWAN [id number] Mallika Garcia 2025-03-09 15:45:00 2025-03-09 15:45:00 Outpatient RENETTA LUNDY [id number] Mallika Garcia 2025-03-09 00:00:00 2025-03-09 00:00:00 Outpatient RENETTA LUNDY [id number] Mallika Garcia 2025-03-08 15:00:00 2025-03-08 15:00:00 Outpatient COLIN COWAN [id number] [facility] 2025-03-02 16:16:00 2025-03-02 20:13:00 Emergency Emergency KEO SEGOVIA [facility] General Medicine [id number] [facility] 2024-04-21 00:00:00 2024-04-21 00:00:00 Outpatient SYMONE JERRI LABOY [id number] [facility] 2024-03-13 11:20:00 2024-03-13 11:20:00 Outpatient RANDALL SIMMONS MALLIKA LABOY [id number] [facility] 2024-02-28 15:30:00 2024-02-28 15:30:00 Outpatient JAMESLASHAWN Dean MALLIKA LABOY [id number] [facility] 2024-01-24 09:40:00 2024-01-24 09:40:00 Outpatient RANDALL SIMMONS MALLIKA LABOY [id number] [facility] 2024-01-24 00:00:00 2024-01-24 00:00:00 Outpatient MALLIKA LABOY [id number] [facility] 2024-01-21 13:00:00 2024-01-21 13:00:00 [id number] [facility] 2023-[facility]-20 14:15:00 2023-12-20 14:15:00 Outpatient CHITO RAMIREZFANY [facility]ALLIKA LABOY [id number] [facility] 2023-12-19 00:00:00 2023-12-19 00:00:00 Outpatient DANIEL BANEGAS MALLIKA LABOY [id number] [facility] 2023-12-09 00:00:00 2023-12-09 00:00:00 Outpatient SYMONE JERRI LABOY [id number] [facility] 2023-12-06 14:50:00 2023-12-06 14:50:00 Outpatient ALEJO LINARES [id number] [facility] 2023-12-05 00:00:00 2023-12-05 00:00:00 Outpatient MD MALLIKA SRIVASTAVA [id number] [facility] 2023-11-29 13:15:00 2023-11-29 13:15:00 Outpatient LASHAWN RAMIREZ MALLIKA LABOY [id number] Mallika Seybkalpana 2023-11-28 00:00:00 2023-11-28 00:00:00 Outpatient JAMESCHITOLASHAWN MALLIKA LABOY [id number] [facility] 2023-11-26 10:30:00 2023-11-26 10:30:00 [id number] 2023-11-22 16:30:00 2023-11-22 16:30:00 Outpatient JERRI SWAN [id number] [facility] 2023-11-21 00:00:00 2023-11-21 00:00:00 Outpatient BANEGASDANIEL [id number] [facility] 2023-11-20 00:00:00 2023-11-20 00:00:00 Outpatient BANEGAS, DANIEL LABOY [id number] [facility] 2023-11-15 00:00:00 2023-11-15 00:00:00 Outpatient ALEJO LINARES [id number] [facility] 2023-11-13 00:00:00 2023-11-13 00:00:00 Outpatient MD MALLIKA SRIVASTAVA [id number] [facility] 2023-11-13 00:00:00 2023-11-13 00:00:00 Outpatient BANEGASDANIEL [id number] [facility] 2023-11-12 14:45:00 2023-11-12 14:45:00 Outpatient LABPrasanna LABOY [id number] Mallika Seybold 2023-11-12 13:45:00 2023-11-12 13:45:00 Outpatient BANEGASDANIEL [id number] Mallika Seybold 2023-11-12 00:00:00 2023-11-12 00:00:00 Outpatient JERRI SWAN [id number] [facility] 2023-11-12 00:00:00 2023-11-12 00:00:00 Outpatient JERRI SWAN MALLIKA LABOY [id number] [facility] 2023-11-11 11:10:00 2023-11-11 11:10:00 Outpatient MALLIKA LABOY [id number] [facility] 2023-11-11 09:00:00 2023-11-11 09:00:00 Outpatient JERRI SWNA MALLIKA LABOY [id number] [facility] 2023-11-04 09:00:00 2023-11-04 09:00:00 Outpatient MALLIKA LABOY [id number] [facility] 2023-10-23 09:15:00 2023-10-23 09:15:00 Outpatient ROBERTA VERA [id number] [facility] 2023-10-23 00:00:00 2023-10-23 00:00:00 Outpatient ROBERTA VERA [id number] [facility] 2023-10-21 00:00:00 2023-10-21 00:00:00 Outpatient BENPaty JERRI MALLIKA LABOY [id number] [facility] 2023-10-04 09:00:00 2023-10-04 09:00:00 Outpatient NADINE PARIKH [id number] [facility] 2023-09-23 09:40:00 2023-09-23 09:40:00 Outpatient JAIME MENJIVAR [facility] [id number] [facility] 2023-09-18 14:15:00 2023-09-18 14:15:00 Outpatient GUSTAVO FERREIRA [id number] [facility] 2023-09-18 13:50:00 2023-09-18 13:50:00 Outpatient MALLIKA LABOY [id number] Mallika Seybkalpana 2023-09-18 09:40:00 2023-09-18 09:40:00 Outpatient CHRIS BRUNO [id number] [facility] 2023-09-18 09:30:00 2023-09-18 09:30:00 Outpatient DRISS Panchal MALLIKA LABOY [id number] Mallika [facility] 2023-09-18 00:00:00 2023-09-18 00:00:00 Outpatient GUSTAVO FERREIRA MALLIKA LABOY [id number] [facility] 2023-09-18 00:00:00 2023-09-18 00:00:00 Outpatient GUSTAVO FERREIRA MALLIKA LABOY [id number] [facility] 2023-09-13 09:28:59 2023-09-13 23:59:00 Outpatient R TOI PEOPLES [facility] [id number] [facility] 2023-09-13 09:28:59 2023-09-13 23:59:00 Hospital Encounter Nicholpantera Toi Samuel [facility] 1.2.840.114 350.1.13.10 4.2.7.2.686 [id number] [facility] 2023-09-13 08:08:00 2023-09-13 08:56:00 Emergency X TOI PEOPLES [facility] ERT [id number] [facility] 2023-09-13 08:08:00 2023-09-13 08:56:00 Emergency Nicholpantera Toi Samuel [facility] 1.2.840.114 350.1.13.10 4.2.7.2.686 [id number] [facility] 2023-09-13 00:00:00 2023-09-13 00:00:00 Outpatient JERRI SWAN [id number] Mallika [facility] 2023-09-13 00:00:00 2023-09-13 00:00:00 Outpatient MARGAUX MALAGON [id number] [facility] 2023-09-12 00:00:00 2023-09-12 00:00:00 Outpatient GRETEL ESCALERA [id number] Mallika [facility] 2023-09-06 00:00:00 2023-09-06 00:00:00 Outpatient JERRI SWAN MALLIKA LABOY [id number] Mallika [facility] 2023-07-09 15:30:00 2023-07-09 15:30:00 Outpatient JERRI SWAN MALLIKA LABOY [id number] Mallika [facility] 2023-06-13 00:00:00 2023-06-13 00:00:00 Outpatient JERRI SWAN MALLIKA LABOY [id number] [facility] 2023-06-10 15:00:00 2023-06-10 15:00:00 Outpatient JERRI SWAN MALLIKA LABOY [id number] Mallika [facility] 2023-05-07 14:30:00 2023-05-07 14:30:00 Outpatient R MARY POLLOCK CHERYAL [facility] [id number] [facility] 2023-01-17 00:00:00 2023-01-17 00:00:00 Outpatient GRETEL ESCALERA [id number] [facility] 2022-12-24 15:37:23 2022-12-24 23:59:00 Outpatient R MARY POLLOCK [facility] [id number] [facility] 2022-12-24 15:00:00 2022-12-24 23:59:00 [facility] 1.2.840.114 350.1.13.10 4.2.7.2.686 [id number] [facility] 2022-12-24 00:00:00 2022-12-24 00:00:00 Outpatient GRETEL ESCALERA [id number] [facility] 2022-12-19 09:30:00 2022-12-19 09:30:00 Outpatient R MARY POLLOCK [facility] [id number] [facility] 2022-12-18 00:00:00 2022-12-18 00:00:00 Outpatient GRETEL ESCALERA [id number] Mallika Garcia 2022-09-26 09:00:00 2022-09-26 09:54:50 Outpatient R MARY POLLOCK [facility] [id number] [facility] 2022-09-26 09:00:00 2022-09-26 09:54:50 Office Visit Mary KayMary nuñez [facility] 1.2840.114 350.1.13.10 4.2.7.2.686 [id number] [facility] 2022-09-26 00:00:00 2022-09-26 00:00:00 Orders Only Doctor Unassigned, [place] [facility] 1.840.114 350.1.13.10 4.2.7.2.686 [id number] [facility] 2022-09-14 09:00:00 2022-09-14 09:25:35 Outpatient R MARY POLLOCK [facility] [id number] [facility] 2022-09-14 09:00:00 2022-09-14 09:25:35 Office Visit Mary KayMary nuñez [facility] 1.2840.114 350.1.13.10 4.2.7.2.686 [id number] [facility] 2022-06-06 14:30:00 2022-06-06 14:50:56 Outpatient R MARY POLLOCK [facility] [id number] [facility] 2022-06-06 14:30:00 2022-06-06 14:50:56 Office Visit Mary KayMary nuñez [facility] 1.20.114 350.1.13.10 4.2.7.2.686 [id number] [facility] 2022-05-31 17:03:58 2022-05-31 23:59:00 Outpatient R MARY POLLOCK [facility] [id number] [facility] 2022-05-31 17:00:00 2022-05-31 23:59:00 Hospital Encounter Mary Pollock [facility] 1.2.840.114 350.1.13.10 4.2.7.2.686 [id number] [facility] 2022-05-30 00:00:00 2022-05-30 00:00:00 Telephone Mary Pollock [facility] 1.2.840.114 350.1.13.10 4.2.7.2.686 [id number] [facility] 2022-05-28 00:00:00 2022-05-28 00:00:00 Outpatient R MARY POLLOCK [facility]ERY[facility] [id number] [facility] 2022-05-23 14:00:00 2022-05-23 14:00:00 Outpatient R MARY POLLOCK [facility] [id number] [facility] 2022-05-23 00:00:00 2022-05-23 00:00:00 Case Management Mary KayMary nuñez [facility] 1.2840.114 350.1.13.10 4.2.7.2.686 [id number] [facility] 2022-05-23 00:00:00 2022-05-23 00:00:00 Telephone Mary KayMary nuñez [facility] 1.2840.114 350.1.13.10 4.2.7.2.686 [id number] [facility] 2022-05-21 16:15:00 2022-05-21 16:30:00 Home Health Clinical Supervisor Visit Pob, Adc Lab Main Lucio Amaya [facility] 1..840.114 350.1.13.10 4.2.7.2.686 [id number] [facility] 2022-05-21 14:30:00 2022-05-21 14:56:16 Out[facility] [id number] [facility] 2022-05-21 14:30:00 2022-05-21 14:56:16 Office Visit Mary Pollock [facility] 1..840.114 350.1.13.10 4.2.7.2.686 [id number] [facility] 2022-05-09 14:30:00 2022-05-09 14:30:00 Outpatient R [facility] [id number] [facility] 2022-02-01 15:15:00 2022-02-01 15:15:00 Outpatient MHIE MHIE [id number] Jaylen Carrizales 2022-01-19 17:15:00 2022-01-19 17:15:00 Outpatient LAB90 MALLIKA LABOY [id number] Mallika mendez 2022-01-19 16:30:00 2022-01-19 17:00:00 Office Visit Jerri Swan 1..840.114 350.1.13.13 1.2.7.2.686 [id number] Mallika mendez 2022-01-19 13:30:00 2022-01-19 13:30:00 Outpatient JERRI SWAN [id number] Mallika [facility] 2022-01-02 18:00:00 2022-01-03 04:59:59 Outpatient nullFlavo r [facility] [place] [id number] Jaylen Carrizales 2021-12-18 00:00:00 2021-12-18 00:00:00 Outpatient GRETEL ESCALERASEY MALLIKA [id number] Mallikadanny Garcia 2021-12-15 00:00:00 2021-12-15 00:00:00 Telephone vIaMary ho [facility] 1.2.840.114 350.1.13.10 4.2.7.2.686 [id number] [facility] 2021-12-14 00:00:00 2021-12-14 00:00:00 Outpatient GRETEL ESCALERA [id number] Mallika Radha 2021-12-08 00:00:00 2021-12-08 00:00:00 Outpatient GRETEL ESCALERA [id number] Mallika Radha 2021-12-06 14:30:00 2021-12-06 15:26:30 [facility] [id number] 2021-12-06 14:30:00 2021-12-06 15:26:30 Outpatient R MARIS MARY POLLOCK [facility] [id number] [facility] 2021-12-06 14:30:00 2021-12-06 15:26:30 Office Visit Maris Arnulfolouis [facility] 1.2.840.114 350.1.13.10 4.2.7.2.686 [id number] [facility] 2021-12-06 14:20:00 2021-12-06 14:20:00 Outpatient LAB90 MALLIKA LABOY [id number] [facility] 2021-12-06 13:30:00 2021-12-06 14:00:00 Office Visit Jerri Swan [facility] 1.2.840.114 350.1.13.13 1.2.7.2.686 [id number] Mallika Sekalpana 2021-12-06 00:00:00 2021-12-06 00:00:00 Orders Only Doctor Unassigned, [place] [facility] 1.2.840.114 350.1.13.10 4.2.7.2.686 [id number] [facility] 2021-12-05 00:00:00 2021-12-05 00:00:00 Outpatient JW GRETEL MALLIKA LABOY [id number] Mallika [facility] 2021-12-04 16:00:00 2021-12-04 16:30:00 Office Visit Jerri Swan 1.2.840.114 350.1.13.13 1.2.7.2.686 [id number] Mallika [facility] 2021-11-23 00:00:00 2021-11-23 00:00:00 Outpatient GREGORY MEJIA MALLIKA LABOY [id number] Mallika [facility] 2021-10-17 00:00:00 2021-10-17 00:00:00 Outpatient JW, GRETEL MALLIKA LABOY [id number] [facility] 2021-10-16 15:30:00 2021-10-16 16:00:00 Office Visit Gregory Mejia 1.2.840.114 350.1.13.13 1.2.7.2.686 [id number] Mallika [facility] 2021-10-16 00:00:00 2021-10-16 00:00:00 Outpatient GREGORY MEJIA MALLIKA LABOY [id number] [facility] 2021-03-08 10:34:00 2021-03-08 12:11:00 Emergency Esteban Vaughn [facility] 1.2.840.114 350.1.13.10 4.2.7.2.686 [id number] [facility] 2021-03-08 10:11:00 2021-03-08 10:11:00 Emergency X [facility] ERT [id number] [facility] 2021-03-08 00:00:00 2021-03-08 00:00:00 Orders Only Doctor Unassigned, [place] [facility] 1.2.840.114 350.1.13.10 4.2.7.2.686 [id number] [facility] 2020-01-25 17:26:2020-01-25 18:56:00 [facility] 1.2.840.114 350.1.13.10 4.2.7.2.686 [id number] 2020-01-25 17:26:04 2020-01-25 18:56:[address] [facility] 1.2.840.114 350.1.13.10 4.2.7.2.686 [id number] [facility] 2020-01-25 17:01:00 2020-01-25 17:01:00 Emergency X [facility] ERT [id number] [facility] Results Test Description Test Time Test Comments Results Result Co mments Source [facility] WITH [id number] 21:15:25* Test Item Value Reference Range Interpretation Comme nts WBC (test code = 6690-2) See_Comment [Automated [employer] Clean Plates] The system which generated this result transmitted reference range: 4.30 - 11.10 10*3/?L. The reference range was not used to interpret this result as normal/abnormal. RBC (test code = 789-8) See_Comment [Automated [employer] Clean Plates] The system which generated this result transmitted reference range: 3.93 - 5.25 10*6/?L. The reference range was not used to interpret this result as normal/abnormal. HGB (test code = 718-7) 14.0 g/dL 11.6-15 HCT (test code = 4544-3) 41.6 % 35.7-45.2 MCV (test code = 787-2) 92.0 fL 80.6-95.5 MCH (test code = 785-6) 31.0 pg 25.9-32.8 MCHC (test code = 786-4) 33.7 g/dL 31.6-35.1 RDW-SD (test code = 84058-0) 40.0 fL 39-49.9 RDW-CV (test code = 788-0) 11.8 % 12-15.5 L PLT (test code = 777-3) See_Comment [Automated messa ge] The system which generated this result transmitted reference range: 166 - 358 10*3/?L. The reference range was not used to interpret this result as normal/abnormal. MPV (test code = 05752-5) 11.1 fL 9.5-12.9 NRBC/100 WBC (test code = 3626268832) See_Comment [Automated [employer] ssage] The system which generated this result transmitted reference range: 0.0 - 10.0 /100 WBCs. The reference range was not used to interpret this result as normal/abnormal. NRBC x10^3 (test code = 8880462199) See_Comment [Automated messa ge] The system which generated this result transmitted reference range: 10*3/?L. The reference range was not used to interpret this result as normal/abnormal. GRAN MAT (NEUT) % (test code = 770-8) 70.1 % IMM GRAN % (test code = 1260403456) 0.50 % LYMPH % (test code = 736-9) 22.9 % MONO % (test code = 5905-5) 5.2 % EOS % (test code = 713-8) 0.7 % BASO % (test code = 706-2) 0.6 % GRAN MAT x10^3(ANC) (test code = 1459055172) 6.05 10*3/uL 1.88-7.09 IMM GRAN x10^3 (test code = 0129487210) 0.04 10*3/uL 0-0.06 LYMPH x10^3 (test code = 731-0) 1.97 10*3/uL 1.32-3.29 MONO x10^3 (test code = 742-7) 0.45 10*3/uL 0.33-0.92 EOS x10^3 (test code = 711-2) 0.06 10*3/uL 0.03-0.39 BASO x10^3 (test code = 704-7) 0.05 10*3/uL 0.01-0.07 Lab Interpretation (test code = 69808-9) [facility]normal [id number] 20:09:00* Test Item Value Reference Range Interpretation Comme nts POCT PREG (test code = 1605) Negative On board controls acceptable with C Line (test code = 3574) Yes POCT PREG LOT # (test code = 3575) POCT PREG TEST DATE ( test code = 3576) [facility] [id number] 20:09:00* Test Item Value Reference Range Interpretation Comme nts POCT PREG (test code = 1605) Negative On board controls acceptable with C Line (test code = 3574) Yes POCT PREG LOT # (test code = 3575) POCT PREG TEST DATE ( test code = 3576) [facility] Notes Date/Time Note Provider Source 2024-01-24 10:09:50 Chief Complaint Patient presents with Genetic Testing Family history of ovarian cancer Ivelisse Morales [facility] 2023-11-12 13:57:02 Chief Complaint Patient presents with Well Woman Exam Desires STD testing. Rylie Roman LVN [facility] 2023-11-11 08:54:42 Chief Complaint Patient presents with Follow-up Follow up on Abilify. She states that the medication made her feel very anxious and it didn't work when needed. Carmen Nichols MA II [facility] 2023-09-18 14:09:42 Chief Complaint Patient presents with Shoulder Pain 27y/o pt here today for left shoulder pain Moira Bello CARLOS Bello [facility] II [facility] 2023-09-13 08:55:57 Patient discharge. Scheduled ECHO and then follow up with dr. Randhawa. Verbalized understandings signed paper work. [facility] 2023-09-13 07:58:38 Patient to ED for 3rd visit for chest pain. She was seen at [place] yesterday and discharged. Checked labs and x ray which were all negative. Pain in chest is intermittent and now has numbness to left arm. 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 She was seen at [place] yesterday and discharged. Checked labs and x ray which were all negative. Pain in chest is intermittent and now has numbness to left arm. Chief Complaint Patient presents with Chest wall pain History of present illness HPI 27 yo woman comes to the ED complaining of chest pain intermittently for several days she has been seen 2 times at outside facilities last one last night and workup has been negative. Pain is sharp intermittent and sometimes felt in the back of the neck. She works in the [employer] and denies SOB to activity. Mother is concerned as apparently there's a history of cardiomyopathy in the family. Patient reports h/o anxiety, depression, migraines and irregular menstrual periods. There were told they needed an Echocardiogram. BP (!) 116/94 | Pulse 106 | Temp 36.8 ?C (98.3 ?F) | Resp 20 | Ht 1.651 m (5' 5") | Wt 59 kg (130 lb) | BMI 21.63 kg/m? Past Medical and Social History Past Medical History: Diagnosis Date Absence of menstruation 12/06/2021 Anxiety Depression Irregular menstrual cycle 05/21/2022 Migraines Screen for sexually transmitted diseases 12/06/2021 Tetanus received in last 5 years: Yes Childhood immunizations: Up-to-date Social History Tobacco Use Smoking status: Never Smokeless tobacco: Never Vaping Use Vaping Use: Every day Substances: Nicotine Devices: Disposable Substance Use Topics Alcohol use: Yes Drug use: Never Past Surgical History History reviewed. No pertinent surgical history. Medications Medications - No data to display Allergies No Known Allergies Review of Systems Review of Systems Constitutional: Negative. HENT: Negative. Eyes: Negative. Respiratory: Negative. Cardiovascular: Positive for chest pain. Gastrointestinal: Negative. Genitourinary: Negative. Musculoskeletal: Negative. Skin: Negative. Neurological: Negative. Psychiatric/Behavioral: Negative. Endocrine: Endocrine negative Physical Exam BP (!) 116/94 | Pulse 106 | Temp 36.8 ?C (98.3 ?F) | Resp 20 | Ht 1.651 m (5' 5") | Wt 59 kg (130 lb) | BMI 21.63 kg/m? Physical Exam Vitals and nursing note reviewed. Constitutional: General: She is not in acute distress. Appearance: She is well-developed and normal weight. She is not ill-appearing. HENT: Head: Normocephalic and atraumatic. Right Ear: External ear normal. Left Ear: External ear normal. Nose: Nose normal. No congestion or rhinorrhea. Mouth/Throat: Pharynx: No oropharyngeal exudate or posterior oropharyngeal erythema. Eyes: General: Right eye: No discharge. Left eye: No discharge. Conjunctiva/sclera: Conjunctivae normal. Pupils: Pupils are equal, round, and reactive to light. Cardiovascular: Rate and Rhythm: Normal rate and regular rhythm. Heart sounds: Normal heart sounds. No murmur heard. No friction rub. Pulmonary: Effort: Pulmonary effort is normal. No respiratory distress. Breath sounds: Normal breath sounds. No stridor. No wheezing or rhonchi. Abdominal: General: Bowel sounds are normal. There is no distension. Palpations: Abdomen is soft. There is no mass. Tenderness: There is no abdominal tenderness. Hernia: No hernia is present. Musculoskeletal: General: No swelling, tenderness, deformity or signs of injury. Normal range of motion. Cervical back: Normal range of motion and neck supple. No rigidity or tenderness. Skin: General: Skin is warm. Capillary Refill: Capillary refill takes less than 2 seconds. Coloration: Skin is not jaundiced or pale. Findings: No bruising or erythema. Neurological: General: No focal deficit present. Mental Status: She is alert and oriented to person, place, and time. Cranial Nerves: No cranial nerve deficit. Sensory: No sensory deficit. Motor: No weakness. Coordination: Coordination normal. Psychiatric: Mood and Affect: Mood normal. Behavior: Behavior normal. Thought Content: Thought content normal. Judgment: Judgment normal. Labs and Studies Lab Results - No data to display No orders to display Orders and Treatments No orders of the defined types were placed in this encounter. No orders of the defined types were placed in this encounter. Patient's Medications START taking these medications No medications on file CONTINUE taking these medications which have NOT CHANGED CHLORPHENIRAMINE 4 MG TABLET Take 1 tablet by mouth every 6 (six) hours as needed for Allergies or Runny nose. FLUTICASONE PROPIONATE 50 MCG/ACTUATION NASAL SPRAY Use 2 Sprays in each nostril daily. IBUPROFEN 600 MG TABLET Take 1 tablet by mouth every 6 (six) hours as needed for Pain (scale 1-3). NUVARING 0.12-0.015 MG/24 HR VAGINAL INSERT Insert 1 Each into vagina once every month. Insert vaginally and leave in place for 3 consecutive weeks, then remove for 1 week. VENLAFAXINE XR 37.5 MG 24 HR CAPSULE 37.5 mg = 1 cap, PO, Daily, # 30 cap, 3 Refill(s), Pharmacy: [facility] [id number], 163.83, cm, 01/02/22 13:48:00 CDT, Height, 57.415, kg, 01/02/22 13:48:00 CDT, Weight START taking Modified Medications as Prescribed No medications on file STOP taking these medications No medications on file Procedures EKG-12 Lead ROUTINE ONCE Date/Time: 09/13/2023 8:33 AM Performed by: Toi Peoples MD Authorized by: Toi Peolpes MD Previous ECG: Previous ECG: Unavailable Interpretation: Interpretation: non-specific Rate: ECG rate: 102 ECG rate assessment: tachycardic Rhythm: Rhythm: sinus rhythm QRS: QRS axis: Normal QRS intervals: Normal QRS conduction: normal ST segments: ST segments: Normal T waves: T waves: non-specific Q waves: Abnormal Q-waves: not present Evidence Care MDM & Notes Patient was evaluated for an emergency medical condition related to Chest wall pain History and/or review of systems is limited by:History limited: None. Medical Decision Making 27 yo woman comes to the ED complaining of chest pain intermittently for several days she has been seen 3 times now with pain and workup is negative. Mother is concerned as apparently there's a history of cardiomyopathy in the family. Patient reports h/o anxiety, depression, migraines and irregular menstrual periods. There were told they needed an Echocardiogram. BP (!) 116/94 | Pulse 106 | Temp 36.8 ?C (98.3 ?F) | Resp 20 | Ht 1.651 m (5' 5") | Wt 59 kg (130 lb) | BMI 21.63 kg/m? DDx include but not limited to: chest pain Plan: referred to Cardiology Amount and/or Complexity of Data Reviewed ECG/medicine tests: ordered and independent interpretation performed. Decision-making details documented in ED Course. Details: NSR rate [address] elevation. Non specific T wave Risk OTC drugs. Risk Details: I will refer the patient to Echo for outpatient 2D echo and refer to Cardiology. No chest pain or acute problems at this time. Normal vs and no chest pain or SOB. Diagnosis/Impression as of 09/13/23 0834 Chest pain, unspecified type Case discussed with: Barriers & Social Determinants of Healthcare: none Limitations to patient care and compliance: none. History, physical exam findings, results of visit, differential diagnosis, medication regimens and plan of future care have been considered. Additional MDM may be found in the ED course. Differential diagnosis considered and final disposition made based on information gathered during evaluation and may not be completely ruled out or specifically listed. Vital signs were rechecked before final disposition and determined to be stable. Diagnoses ICD-10-CM 1. Chest pain, unspecified type R07.9 Disposition and Condition ED Disposition ED Disposition Disch - Home Condition Stable Comment -- Patient's Medications START taking these medications No medications on file CONTINUE taking these medications which have NOT CHANGED CHLORPHENIRAMINE 4 MG TABLET Take 1 tablet by mouth every 6 (six) hours as needed for Allergies or Runny nose. FLUTICASONE PROPIONATE 50 MCG/ACTUATION NASAL SPRAY Use 2 Sprays in each nostril daily. IBUPROFEN 600 MG TABLET Take 1 tablet by mouth every 6 (six) hours as needed for Pain (scale 1-3). NUVARING 0.12-0.015 MG/24 HR VAGINAL INSERT Insert 1 Each into vagina once every month. Insert vaginally and leave in place for 3 consecutive weeks, then remove for 1 week. VENLAFAXINE XR 37.5 MG 24 HR CAPSULE 37.5 mg = 1 cap, PO, Daily, # 30 cap, 3 Refill(s), Pharmacy: [facility] [id number], 163.83, cm, 01/02/22 13:48:00 CDT, Height, 57.415, kg, 01/02/22 13:48:00 CDT, Weight START taking Modified Medications as Prescribed No medications on file STOP taking these medications No medications on file Dragon Dictation Software is used frequently and may produce errors. Promptly contact for obvious discrepancies. Toi Peoples MD, FACEP, FAAEM [employer] Crusher of Emergency and Internal Medicine [facility], [facility] #[id number] Toi Peoples MD 09/13/23 2054 [facility]
[2025-03-25] MEDS ORDERED: KETOROLAC 30 MG/ML INJ ONE (17:16)
[2025-03-25] MEDS ORDERED: HYDROCODONE/APAP 5/325 MG TAB ONE (17:17)
--- NOTE | 2025-03-25 18:03 | RAD REPORT ---
EXAMINATION: Ankle Right 3 View CLINICAL INDICATION: Female, 29 years old. PAIN COMPARISON: No prior exam. FINDINGS: No acute fracture. No malalignment/dislocation. No significant focal degenerative change. Other: Soft tissue swelling along the lateral aspect of the ankle. IMPRESSION: No acute osseous abnormality.
--- NOTE | 2025-03-25 18:05 | EDPHYS ---
Physician Documentation [facility] Name: Ester Moe Age: 29 yrs Sex: Female : 1995 Arrival Date: 03/25/2025 Time: 16:41 Bed 11 Private MD: ED Physician Alexis Beavers HPI: 03/25 17:43 This 29 yrs old Female presents to ER via Wheelchair with complaints of Ankle sb4 Injury - Right. 17:43 Patient states that she was trying to get her dog inside when she rolled her ankle, sb4 heard a pop. It immediately swelled up. Is complaining of pain to the lateral ankle with associated swelling. Is not able to bear weight. Denies any prior injuries. 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 - Infectious Disease History:: Denies. - Social history:: Smoking status: Reported history of juuling and/or vaping. ROS: 17:43 Constitutional: Negative for fever, chills, and weight loss, sb4 17:43 MS/extremity: Positive for injury or acute deformity, decreased range of motion, laceration, pain, swelling, tenderness, of the right ankle, 17:43 All other systems are negative, Exam: 17:43 Constitutional: This is a well developed, well nourished patient who is awake, alert, sb4 and in no acute distress. Head/Face: Normocephalic, atraumatic. Eyes: Extra-ocular motions intact. Periorbital areas with no swelling, redness, or edema. ENT: Mucous membranes moist. Respiratory: No increased work of breathing, no retractions or nasal flaring. Skin: Warm, dry with normal turgor. Normal color with no rashes, no lesions, and no evidence of cellulitis. 17:43 Musculoskeletal/extremity: Circulation is intact in all extremities. Pulses: are normal with no appreciated deficits, Sensation intact. Joints: the right ankle displays limited range of motion, pain at rest, painful range of motion, swelling, tenderness, Vital Signs: 17:11 BP 117 / 90; Pulse 93; Resp 16; Temp 98.1; Pulse Ox 100% ; Weight 71.67 kg; Height 5 me1 ft. 5 in. ; Pain 10/10; 17:11 Body Mass Index 26.29 (71.67 kg, 165.1 cm) me1 17:11 Pain Scale: Adult me1 MDM: 16:44 Medical Screening Exam initiated sb4 17:44 Differential diagnosis: fracture, sprain. sb4 18:04 Data reviewed: vital signs, nurses notes, radiologic studies, and as a result, I will sb4 discharge patient. Counseling: I had a detailed discussion with the patient and/or guardian regarding the historical points, exam findings, and any diagnostic results supporting the discharge/admit diagnosis, radiology results, the need for outpatient follow up, a orthopedic surgeon, to return to the emergency department if symptoms worsen or persist or if there are any questions or concerns that arise at home. 18:17 Independent interpretation of the following test(s) in the Emergency Department X-Ray: sb4 My interpretation is My interpretation of the right ankle x-ray images is no acute fracture or dislocation. 03/25 17:14 Order name: Ankle Right 3 View XRAY; Complete Time: 18:04 sb4 03/25 18:04 Order name: Aircast Ankle Splint; Complete Time: 19:26 sb4 03/25 18:04 Order name: Crutches; Complete Time: 19:26 sb4 Administered Medications: 17:20 Drug: HYDROcodone-acetaminophen PO 5 mg-325 mg 1 tabs PO once Route: PO; me1 19:26 Follow up: Response: No adverse reaction; Pain is decreased al5 17:20 Drug: Ketorolac IM 15 mg IM once Route: IM; Site: right deltoid; me1 19:26 Follow up: Response: No adverse reaction; Pain is decreased al5 Disposition: 03/26 09:12 Co-signature as Attending Physician, Alexis Beavers MD I agree with the assessment and zakiya plan of care. Disposition Summary: 03/25/25 18:04 Discharge Ordered Notes: Location: Home sb4 Problem: new sb4 Symptoms: have improved sb4 Condition: Stable sb4 Diagnosis - Sprain of unspecified ligament of right ankle, initial encounter sb4 Followup: sb4 - With: Niraj Kenny MD - When: As needed - Reason: Recheck today's complaints, Re-evaluation by your physician Discharge Instructions: - Discharge Summary Sheet sb4 - Ankle Sprain, [id number] sb4 Forms: - Patient Portal Instructions sb4 - Leadership Thank You Letter sb4 Prescriptions: - Ibuprofen 800 mg Oral Tablet - take 1 tablet ORAL route every 8 hours As needed take with food; 30 tablet; sb4 Refills: 0, Product Selection Permitted - Cyclobenzaprine 5 mg Oral Tablet - take 1 tablet ORAL route 3 times per day As needed; 15 tablet; Refills: 0, sb4 Product Selection Permitted Signatures: Dispatcher [employer] EDAlexis Edgar MD MD cha Brown, Sophia PAJuan AlbertoC PA-C sb4 Brandy Coe RN RN me1 Amairani Miller RN al5
--- NOTE | 2025-03-25 18:05 | ER ---
Nurse's Notes [facility] Name: Ester Moe Age: 29 yrs Sex: Female : 1995 Arrival Date: 03/25/2025 Time: 16:41 Bed 11 Private MD: Diagnosis: Sprain of unspecified ligament of right ankle, initial encounter Presentation: 03/25 17:11 Chief complaint: Patient states: running and tripped over dog, right ankle popped and me1 started hurting. Pain 10/10, "throbbing/sharp". Swelling noted to lateral right ankle. Coronavirus screen: Vaccine status: Patient reports receiving the 2nd dose of the covid vaccine. Ebola Screen: No symptoms or risks identified at this time. Initial Sepsis Screen: Does the patient meet any 2 criteria? HR > 90 bpm. Does the patient have a suspected source of infection? No. Patient's initial sepsis screen is negative. Risk Assessment: Do you want to hurt yourself or someone else? Patient reports no desire to harm self or others. Onset of symptoms was March 25, 2025 at 16:30. 17:11 Method Of Arrival: Wheelchair [facility] [place] 17:11 Acuity: NISHI 4 me1 Triage Assessment: 19:26 General: Appears in no apparent distress. comfortable, Behavior is calm, cooperative. al5 Pain: Complains of pain in right ankle. EENT: No signs and/or symptoms were reported regarding the EENT system. Neuro: Level of Consciousness is awake, alert, obeys commands, Oriented to person, place, time, situation. Cardiovascular: Patient's skin is warm and dry. Respiratory: Airway is patent Respiratory effort is even, unlabored, Respiratory pattern is regular, symmetrical. Musculoskeletal: Circulation, motion, and sensation intact. Range of motion: intact in all extremities. 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 - Infectious Disease History:: Denies. - Social history:: Smoking status: Reported history of juuling and/or vaping. Screenin:26 [facility] ED Fall Risk Assessment (Adult) History of falling in the last 3 months, al5 including since admission Yes- single mechanical fall (1 pt) Confusion or Disorientation No (0 pts) Intoxicated or Sedated No (0 pts) Impaired Gait Yes (1 pt) Mobility Assist Device Used Yes (1 pt) Altered Elimination No (0 pt) Score/Fall Risk Level 3 or more points = High Risk Oriented to surroundings, Maintained a safe environment. Abuse screen: Denies threats or abuse. Denies injuries from another. Nutritional screening: No deficits noted. Tuberculosis screening: No symptoms or risk factors identified. Vital Signs: 17:11 BP 117 / 90; Pulse 93; Resp 16; Temp 98.1; Pulse Ox 100% ; Weight 71.67 kg; Height 5 me1 ft. 5 in. ; Pain 10/10; 17:11 Body Mass Index 26.29 (71.67 kg, 165.1 cm) me1 17:11 Pain Scale: Adult me1 ED Course: 16:43 Patient arrived in ED. im 16:44 Nina Horn PA-C is PHCP. sb4 16:44 Alexis Beavers MD is Attending Physician. sb4 17:13 Triage completed. me1 17:13 Arm band placed on Patient placed in waiting room. me1 18:00 Ankle Right 3 View XRAY In Process Unspecified. EDMS 18:04 Niraj Kenny MD is Referral Physician. sb4 19:18 Amairani Miller, JULIO is Primary Nurse. al5 19:27 Patient has correct armband on for positive identification. Provided Education on: al5 discharge follow up, medications, referral, how to use crutches. 19:27 No provider procedures requiring assistance completed. Patient did not have IV access al5 during this emergency room visit. Administered Medications: 17:20 Drug: HYDROcodone-acetaminophen PO 5 mg-325 mg 1 tabs PO once Route: PO; me1 19:26 Follow up: Response: No adverse reaction; Pain is decreased al5 17:20 Drug: Ketorolac IM 15 mg IM once Route: IM; Site: right deltoid; me1 19:26 Follow up: Response: No adverse reaction; Pain is decreased al5 Medication: 19:27 VIS not applicable for this client. al5 Outcome: 18:04 Discharge ordered by . sb4 19:27 Discharged to home ambulatory, with crutches, al5 19:27 Condition: good 19:27 Discharge instructions given to patient, Instructed on discharge instructions, follow up and referral plans. medication usage, Demonstrated understanding of instructions, follow-up care, medications, Prescriptions given X 2, 19:28 Patient left the ED. hi5 Signatures: Dispatcher [employer] Nina Parra PA-C PA-C sb4 Jennifer Wu Michelle RN RN me1 Amairani Miller RN RN al5
[2025-03-25 20:06] VITALS: BP 117/90; TEMP 98.1; O2SAT 100
== END 2025-03-25 19:28 | disposition home or self-care (01) ==
LOC: ER 16:41
DX: S93.401A Sprain of unspecified ligament of right ankle, initial encounter (principal)
CPT/HCPCS: 96372; 99284